=== PATIENT | female | born 1965 | race Caucasian/White ===

== ENCOUNTER 2020-06-29 11:10 | Outpatient (REF) | payer OTHER, SELFPAY ==
--- NOTE | 2020-06-29 11:21 | XR_ITS ---
EXAMINATION: XR HAND, RIGHT CLINICAL INFORMATION: Pain COMPARISON: None TECHNIQUE: PA, lateral, and oblique views of the right hand. FINDINGS: The bones and soft tissues are normal. No fracture. Alignment is anatomic. Joint spaces are maintained. No erosions or soft tissue calcifications. XR/XR hand RT min 3V IMPRESSION: Normal right hand.
== END 2020-06-29 11:11 | disposition home or self-care (01) ==
LOC: HO.HMGCX 11:10
PROVIDERS: PCP Internal Medicine; Visit Provider Hospitalist
DX: M79.644 Pain in right finger(s) (principal)
CPT/HCPCS: 73130

== ENCOUNTER 2020-10-30 11:22 | Outpatient (REF) | payer OTHER, SELFPAY ==
--- NOTE | ~2020-10-30 | XR_ITS ---
EXAMINATION: XR CHEST CLINICAL INFORMATION: Dyspnea COMPARISON: Chest radiographs 09/29/2018 TECHNIQUE: 2 views of the chest were obtained. FINDINGS: The lungs are clear. The vascularity is normal. There is no airspace consolidation, vascular congestion, groundglass opacity, or effusion. The heart is normal in size. The hilar and mediastinal contours and bony structures are unremarkable. XR/XR chest 2V IMPRESSION: Unremarkable examination.
== END 2020-10-30 11:23 | disposition home or self-care (01) ==
LOC: HO.HMGCLDS 11:22
PROVIDERS: PCP Internal Medicine; Visit Provider Physician Assistant
DX: R06.00 Dyspnea, unspecified (principal)
CPT/HCPCS: 71046

== ENCOUNTER → 2020-12-21 13:15 | Outpatient (BNVA) | payer OTHER, SELFPAY | PROVIDERS: PCP Internal Medicine; Visit Provider Physician Assistant Medical | DX: S93.402A Sprain of unspecified ligament of left ankle, initial encounter (principal); S00.83XA Contusion of other part of head, initial encounter; S60.211A Contusion of right wrist, initial encounter; S50.01XA Contusion of right elbow, initial encounter; S80.01XA Contusion of right knee, initial encounter; W01.10XA Fall on same level from slipping, tripping and stumbling with subsequent striking against unspecified object, initial encounter | CPT/HCPCS: 73110; 73130; 73610; 99204 ==

== ENCOUNTER → 2020-12-28 13:17 | Outpatient (BNVA) | payer OTHER, SELFPAY | PROVIDERS: PCP Internal Medicine; Visit Provider Physician Assistant Medical | DX: S93.402A Sprain of unspecified ligament of left ankle, initial encounter (principal); S80.01XA Contusion of right knee, initial encounter; W18.30XA Fall on same level, unspecified, initial encounter | CPT/HCPCS: 73564; 99214 ==

== ENCOUNTER → 2021-01-01 12:40 | Outpatient (BNVA) | payer OTHER, SELFPAY | PROVIDERS: PCP Internal Medicine; Visit Provider Physician Assistant Medical | DX: S80.01XA Contusion of right knee, initial encounter (principal); W18.30XA Fall on same level, unspecified, initial encounter | CPT/HCPCS: 99213 ==

== ENCOUNTER → 2021-01-05 14:54 | Outpatient (BNVA) | payer OTHER, SELFPAY | PROVIDERS: Visit Provider Physician Assistant | DX: M70.51 Other bursitis of knee, right knee (principal); M17.11 Unilateral primary osteoarthritis, right knee; S80.01XA Contusion of right knee, initial encounter | CPT/HCPCS: 99202 ==

== ENCOUNTER → 2021-02-15 12:35 | Outpatient (BNVA) | payer OTHER, SELFPAY | PROVIDERS: Visit Provider Physician Assistant | DX: M17.11 Unilateral primary osteoarthritis, right knee (principal); M70.51 Other bursitis of knee, right knee; S80.01XD Contusion of right knee, subsequent encounter | CPT/HCPCS: 20610; 99212; J1040 ==

== ENCOUNTER 2021-03-03 11:00 | Outpatient (RCR) | payer OTHER, SELFPAY ==
--- NOTE | 2021-02-24 12:53 | MHC.PT.EP ---
[facility] [place] Office [place] Office [place] Office [address] Katie Smy[address] [phone] F: [phone] F: [phone] F: [phone] F: [phone] Physical Therapy Plan of Care Date of Evaluation: Date of Surgery: NA Diagnosis: CONTUSION R KNEE, BURSITIS, OA Assessment: Pt IS 55 YO F REFERRED TO PT FROM ORTHO WITH CONTUSION R KNEE/BURSITIS/OA S/P FALL 12/21/20 WHEN TWISTED HER ANKLE AND FELL ONTO R KNEE. PRESENTS GOOD KNEE ROM AND STRENGTH WITH MMT. Pt REPORTS HX OF MULTIPLE ANKLE INJURIES. HAS EXERCISED REGULARLY UNTIL SHE FELL. NEG LIMP WITH GT, BUT HYPEREXTENSION NOTED WITH SIGNIF CREPITUS WITH SQUAT. Pt REPORTS R LAT THIGH PARESTHESIA (POST COVID). REPORTS LIMITED ABILITY TO KNEEL AND SQUAT. SHOULD BENEFIT FROM PT TO HELP IMPROVE KNEE STABILITY WITH FOCUS ON PATELLA SYMMETRY WITH STRETCHING AND STRENGTHENING NEEDED. OF NOTE, Pt REPORTS A TAPE SENSITIVITY (PAPER TAPE/BANDAIDS..HAS NEVER HAD KT TRIAL..ED TO WEAR KT ONLY SHORT TIME AND BE MINDFUL OF IRRITATION Frequency and Duration: The patient will be seen 2X/WK X 6WKS Short Term Goals: 1. I HEP WITH DC EX PLAN/Pt ABLE TO RETURN TO PREVIOUS EX PROGRAM 2. 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 DECREASED R KNEE PAIN WITH KNEELING AND SQUATTING 2. IMPROVED LEFI Treatment Plan: Modalities to reduce pain, spasms and effusion. Manual therapy to restore motion and function. Therapeutic exercise to improve strength and flexibility. Neuromuscular re-education for posture and balance. Therapeutic activities to return to functional activities of daily living. Electronically signed by: NHUNG BECK PT Please sign and return to therapist. Thank you for your referral.
--- NOTE | 2021-03-03 12:04 | MHC.PT.DC ---
[facility] [place] Office [place] Office [place] Office [address] Manuel Smyth [address] [phone] F: [phone] F: [phone] F: [phone] F: [phone] Physical Therapy Discharge Report Diagnosis: CONTUSION R KNEE, BURSITIS, OA Date of Surgery: NA Date of Evaluation: 02/24/21 Date of Discharge: 03/03/21 Treatments to Date: 3 Cancellations to Date: No Shows to Date: Discharge Status: Patient Elected to Stop Discharge Summary: Pt HAD LEFT VM ON ANSWERING MACHINE AFTER INIT KT TO SAY THAT IT WAS VERY BENEFICIAL. TODAY, Pt TO PT REPORTING SHE IS CANCELLING FURTHER VISITS BECAUSE THE EXS ARE HURTING HER BACK. SHE CAME IN TODAY ONLY TO REVIEW TAPING TECHNIQUE WHICH INITIALLY GAVE HER SIGNIF RELIEF. REPORTS THE LAST TAPING FELT TOO TIGHT (SHOWED SMALL BRUISES AROUND KNEE JT). Pt BROUGHT IN ANKLE SUPPORTS (ED TO USE WHICHEVER GIVES HER THE MOST RELIEF) [ End ]Pt CONTINUES WITH KNEE HYPER EXT. Pt REQUESTS CX FURTHER VISITS (REPORTS EXS INCREASING BACK PAIN...GAVE HER MODIFIED EXS TO TRY). HAS FU WITH ORTHO. ED ON SELF/SPOUSE ASSIST KT, ED RE USING TAPE WHILE STRENGTHENS R LE (PAINFREE) THEN WEAN JACINTA Electronically signed by: NHUNG BECK PT Please sign and return to therapist. Thank you for your referral.
== END 2021-03-03 12:04 | disposition home or self-care (01) ==
LOC: HO.PTWFD 11:00
PROVIDERS: PCP Internal Medicine; Visit Provider Physician Assistant
DX: S80.01XA Contusion of right knee, initial encounter (principal); M17.11 Unilateral primary osteoarthritis, right knee; M70.51 Other bursitis of knee, right knee
CPT/HCPCS: 97110; 97140; 97161

== ENCOUNTER → 2021-03-15 12:44 | Outpatient (BNVA) | payer OTHER, SELFPAY | PROVIDERS: Visit Provider Physician Assistant | DX: M17.11 Unilateral primary osteoarthritis, right knee (principal) | CPT/HCPCS: 99212 ==

== ENCOUNTER 2021-03-24 16:33 | Outpatient (REF) | payer OTHER, SELFPAY ==
--- NOTE | ~2021-03-24 | MR_ITS ---
EXAMINATION: MR KNEE WITHOUT CONTRAST, RIGHT CLINICAL INFORMATION: Primary osteoarthritis. COMPARISON: X-ray of the right knee December 2020. TECHNIQUE: MRI of the knee without contrast was performed using routine sequences on a high-field scanner. FINDINGS: MENISCI: Medial Meniscus: Intact. Lateral Meniscus: Intact. LIGAMENTS: Cruciate: Intact. Collateral: Intact. EXTENSOR MECHANISM: Intact. ARTICULAR CARTILAGE/BONE: Patellofemoral Compartment: There is a focal area of high-grade cartilage loss with associated subchondral cystic change and edema in the distal medial trochlea over an area measuring approximately 6 mm at transverse and craniocaudal. Patella: Non-uniform up high-grade cartilage loss scattered about the medial facet and median ridge of the patella with small subchondral cystic change. Overall, [id number] patellofemoral arthrosis. Medial Compartment: Normal. Lateral Compartment: Normal. JOINT FLUID AND BURSAE: Mild joint effusion and small Smalls's cyst with mild synovitis. Minimal edema in the prepatellar bursal region. MR/MR knee RT wo con IMPRESSION: 1. [id number] patellofemoral arthrosis. 2. Mild joint effusion with small Smalls's cyst.
== END 2021-03-24 16:34 | disposition home or self-care (01) ==
LOC: HO.MRI 16:33
PROVIDERS: PCP Internal Medicine; Visit Provider Physician Assistant
DX: M17.11 Unilateral primary osteoarthritis, right knee (principal); S80.01XA Contusion of right knee, initial encounter
CPT/HCPCS: 73721

== ENCOUNTER → 2021-04-06 13:15 | Outpatient (BNVA) | payer OTHER, SELFPAY | PROVIDERS: PCP Internal Medicine; Visit Provider Physician Assistant ==

== ENCOUNTER 2021-04-14 14:56 | Outpatient (REF) | payer OTHER, SELFPAY ==
--- NOTE | ~2021-04-14 | MR_ITS ---
EXAMINATION: MRI WITHOUT AND WITH CONTRAST FOOT, RIGHT CLINICAL INFORMATION: Foot mass chronic and progressing. COMPARISON: None TECHNIQUE: MRI without and with intravenous administration of 10 mL of Gadavist was performed on the right foot. A skin marker was placed over the area of palpable concern, along the dorsum of the midfoot. FINDINGS: There is severe osteoarthritis at the junction of the navicular and lateral cuneiform and less prominent degenerative changes at the junction with the middle cuneiform, with dorsal osteophytes which likely represent the palpable abnormality. Associated enhancing synovitis and a focally prominent vessel in this location may contribute to the sensation of a palpable lump. There is no enhancing soft tissue mass. The anterior tibialis tendon, extensor hallucis longus and extensor digitorum longus tendons appear intact. No metatarsal stress reaction or fracture. Visualized flexor tendons and plantar fascia appear intact. 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 No enhancing soft tissue mass.
== END 2021-04-14 14:57 | disposition home or self-care (01) ==
LOC: HO.MRI 14:56
PROVIDERS: PCP Internal Medicine; Visit Provider Orthopaedic Surgery
DX: R22.41 Localized swelling, mass and lump, right lower limb (principal)
CPT/HCPCS: 73720; A9585

== ENCOUNTER 2022-07-30 13:23 | Outpatient (REF) | payer OTHER, SELFPAY ==
--- NOTE | ~2022-07-30 | XR_ITS ---
EXAMINATION: XR HAND, LEFT CLINICAL INFORMATION: Contusion of unspecified finger without damage to nail. COMPARISON: None TECHNIQUE: PA, lateral, and oblique views of the left hand. FINDINGS: A 1 mm ossific body is noted along the dorsal aspect of the ulnar portion of the base of the second distal phalanx. No adjacent soft tissue emphysematous changes or definitive soft tissue inflammatory changes. No associated distal interphalangeal joint subluxation. Elsewhere, no arthropathic changes or embedded radiopaque foreign bodies identified. XR/XR hand LT min 3V IMPRESSION: Age-indeterminate, minimally displaced 1 mm avulsion fracture along the dorsal ulnar base of the second distal phalanx.
== END 2022-07-30 13:24 | disposition home or self-care (01) ==
LOC: HO.HMGCX 13:23
PROVIDERS: Visit Provider Internal Medicine
DX: S60.00XD Contusion of unspecified finger without damage to nail, subsequent encounter (principal)
CPT/HCPCS: 73130

== ENCOUNTER 2023-04-29 10:37 | Outpatient (REF) | payer OTHER, SELFPAY ==
[2023-05-02 01:29] LABS: Lyme Abs Screen <0.90 index
== END 2023-04-29 10:38 | disposition home or self-care (01) ==
LOC: HO.HMGCLDS 10:37
PROVIDERS: PCP Internal Medicine; Visit Provider Internal Medicine
DX: T14.8XXA Other injury of unspecified body region, initial encounter (principal); W57.XXXA Bitten or stung by nonvenomous insect and other nonvenomous arthropods, initial encounter; Y93.9 Activity, unspecified; Y92.9 Unspecified place or not applicable; Y99.9 Unspecified external cause status
CPT/HCPCS: 36415; 86617; 86618

== ENCOUNTER 2023-07-05 11:22 | Outpatient (REF) | payer OTHER, SELFPAY ==
--- NOTE | ~2023-07-05 | XR_ITS ---
EXAMINATION: XR CHEST 2 VIEWS CLINICAL INFORMATION: Cough. COMPARISON: Chest radiographs dated 10/30/2020. TECHNIQUE: Frontal and lateral views of the chest were obtained. FINDINGS: The heart, great vessels, pulmonary vasculature and mediastinum are normal. The lungs show no focal infiltrate, effusion or pneumothorax. There is no acute osseous abnormality. XR/XR chest 2V IMPRESSION: No active cardiopulmonary disease.
== END 2023-07-05 11:23 | disposition home or self-care (01) ==
LOC: HO.XRAY 11:22
PROVIDERS: PCP Internal Medicine; Visit Provider Physician Assistant
DX: R05.9 Cough, unspecified (principal)
CPT/HCPCS: 71046

== ENCOUNTER 2024-02-13 13:47 | Outpatient (REF) | payer OTHER, SELFPAY ==
[2024-02-13 17:37] LABS: MANUAL DIFF FLAG NO
[2024-02-13 17:45] LABS: Basophils Percent Auto 0.7 % (0-2); Eosinophils Absolute Auto 0.1 X10*3/uL (0.0-0.4); Eosinophils Percent Auto 2.9 % (0-4); Hematocrit 41.7 % (37.0-47.0); Hemoglobin 13.8 g/dl (12.0-16.0); Imm Gran Abs Auto 0.01 X10*3/uL (0.00-0.03); Imm Gran Pct Auto 0.2 % (0.0-0.4); Lymphocytes Absolute Auto 1.4 X10*3/uL (1.2-4.9); Mean Corpuscular HGB Conc 33.1 g/dl (31.0-35.0); Mean Corpuscular Hemoglobin 30.6 pg (27.0-33.0); Mean Corpuscular Volume 92.5 fL (80.0-98.0); Mean Platelet Volume 10.7 fL (9.4-12.3); Monocytes Absolute Auto 0.3 X10*3/uL (0.1-1.2); Monocytes Percent Auto 7.2 % (2-11); Neutrophils Absolute Auto 2.3 x10*3/uL (2.0-8.3); Platelet Count 352 X10*3/uL (160-400); Red Blood Count 4.51 X10*6/uL (4.20-5.50); Red Cell Distribution Width 12.4 % (11.0-16.0); White Blood Count 4.2 X10*3/uL (4.8-10.8)
[2024-02-13 17:54] LABS: Estimated Average Glucose 111 mg/dL; Hemoglobin A1c % 5.5 % (<6.0)
[2024-02-13 18:07] LABS: Alanine Aminotransferase 23 U/L (0-31); Albumin Level 4.4 g/dL (3.5-5.0); Alkaline Phosphatase 88 U/L (39-117); Anion Gap 13 (12-20); Aspartate Amino Transferase 26 U/L (5-31); Bilirubin Total 0.5 mg/dL (0.0-1.0); Blood Urea Nitrogen 11 mg/dL (9-16); Calcium 9.5 mg/dL (8.4-10.2); Carbon Dioxide 27 mmol/L (22-29); Chloride 106 mmol/L (96-108); Cholesterol 177 mg/dL (<200); Estimated Glomerular Filt Rate > 60; Glucose Random 87 mg/dL (60-115); HDL Cholesterol 68 mg/dL (>40); Iron 132 mcg/dL (30-160); LDL Cholesterol Calculated 98 mg/dL (<100); Magnesium 2.1 mg/dL (1.6-2.6); Percent Iron Saturation 41 % (15-50); Potassium 3.9 mmol/L (3.3-5.1); Sodium 142 mmol/L (135-145); Total Iron Binding Capacity 321 mcg/dL (228-428); Total Protein 7.8 g/dL (6.5-8.0); Triglycerides 56 mg/dL (<150); Unsaturated Iron Binding 189 ug/dL
[2024-02-13 18:24] LABS: Ferritin 118 ng/mL (10-250); TSH reflex Free T4 0.95 uIU/mL (0.32-4.0)
[2024-02-13 18:29] LABS: Folate 7.7 ng/mL (> or = 4.0); Vitamin B12 905 pg/mL (200-900)
== END 2024-02-13 13:48 | disposition home or self-care (01) ==
LOC: HO.WFDLDS 13:47
PROVIDERS: Visit Provider Physician Assistant
DX: D51.3 Other dietary vitamin B12 deficiency anemia (principal); Z13.1 Encounter for screening for diabetes mellitus
CPT/HCPCS: 36415; 80053; 80061; 82607; 82728; 82746; 83036; 83540; 83735; 84443; 85025

== ENCOUNTER 2024-02-13 14:27 | Outpatient (REF) | payer OTHER, SELFPAY ==
[2024-02-15 12:58] LABS: Zinc 63 mcg/dL (60-130)
== END 2024-02-13 14:28 | disposition home or self-care (01) ==
LOC: HO.LAB 14:27
PROVIDERS: Visit Provider Physician Assistant
DX: D51.3 Other dietary vitamin B12 deficiency anemia (principal)
CPT/HCPCS: 36415; 84630

== ENCOUNTER 2024-07-02 09:52 | Outpatient (AMB) | payer OTHER, SELFPAY ==
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
[2024-07-02 10:27] VITALS: BP 124/86; PULSE 98; O2SAT 99
== END 2024-07-02 12:37 | disposition home or self-care (01) ==
PROVIDERS: PCP Internal Medicine; Visit Provider Physician Assistant
DX: S63.91XA Sprain of unspecified part of right wrist and hand, initial encounter (principal)

== ENCOUNTER → 2024-07-02 09:52 | Outpatient (BNVA) | payer OTHER, SELFPAY | PROVIDERS: PCP Internal Medicine; Visit Provider Physician Assistant ==

== ENCOUNTER 2024-08-05 10:07 | Outpatient (REF) | payer OTHER, SELFPAY ==
--- NOTE | ~2024-08-05 | XR_ITS ---
EXAMINATION: XR HAND, RIGHT CLINICAL INFORMATION: PAIN IN RIGHT HAND COMPARISON: None available. TECHNIQUE: PA, lateral, and oblique views of the right hand. FINDINGS: The bones and soft tissues are normal. No fracture. Alignment is anatomic. Joint spaces are maintained. No erosions or soft tissue calcifications. XR/XR hand RT min 3V IMPRESSION: Normal right hand. Electronically signed by: Kenton Way MD 08/05/2024 10:41 AM JEFRY
== END 2024-08-05 10:08 | disposition home or self-care (01) ==
LOC: HO.XRAY 10:07
PROVIDERS: PCP Internal Medicine; Visit Provider Physician Assistant
DX: M79.641 Pain in right hand (principal)
CPT/HCPCS: 73130

== ENCOUNTER → 2024-08-05 10:13 | Outpatient (BNV) | payer OTHER, SELFPAY | PROVIDERS: PCP Internal Medicine; Visit Provider Radiology Diagnostic Radiology | DX: M79.641 Pain in right hand (principal) | CPT/HCPCS: 73130 ==

== ENCOUNTER 2024-09-11 11:38 | Outpatient (AMB) | payer OTHER, SELFPAY ==
--- NOTE | 2024-09-11 11:46 | MHC.OFFWIV ---
Intake Vital Signs 09/11/24 11:47 Height 5 ft 6 in BMI Reason not done Patient refused/unable BP 138/80 Blood Pressure Location Rt brachial Position Sitting Pulse 87 Pulse Source Pulse Oximeter Temp 97.9 F Temp Source Oral Pulse Oximetry (%) 97 Oxygen Delivery Method Room Air Intake Visit Reasons: EP-lt wrist pain from a fall, no wc Intake Note: pt is here for left wrist pain due to fall Patient Tobacco Use Status: Never used Tobacco Allergies morphine [MORPHINE] Allergy (Unknown, Verified 09/11/24 11:48) VOMITING Codeine Phosphate Allergy (Unknown, Uncoded 07/02/24 10:25) Unknown Do you need a note to return to daycare/school/sports/work: Yes HPI HPI Comments History of Present Illness Details Pt presents with L wrist pain 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 She 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 and broke railing and landed hard on L wrist R hand dominant No HT or LOC No medicine for discomfort Pain level high, did not give pain level She denies numbness or tingling PFSH Social History (System 06/08/23 @ 13:42 by Mayela Garrison) Alcohol intake: never Patient Tobacco Use Status: Never used Tobacco Current occupational status: employed 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 Review of Systems Const Denies chills, Denies fever(s) and Denies headache(s) Eyes Denies change in vision ENT Denies dizziness and Denies headache(s) Musc Reports arthralgias (Lt wrist ), Reports radiating pain into limb and Reports tingling Skin/Breast Denies rash and Reports other (blood blister L palm near thumb) Neuro Denies dizziness, Denies headache(s) and Reports tingling Physical Exam Vital Signs: Last Vital Signs Temp 97.9 F 09/11/24 11:47 Pulse 87 09/11/24 11:47 BP 138/80 09/11/24 11:47 Pulse Ox 97 09/11/24 11:47 Oxygen Delivery Method Room Air 09/11/24 11:47 General: Non-toxic, NAD. Speaking full sentences. Skin: Warm dry throughout. L palm has verticle approx 1.5cm blood blister to L thenar eminance. No open abrasions or wounds Eye: EOMI Respiratory: No respiratory distress noted Cardiac: Radial pulse intact LUE MSK: + full ROM digits L hand, L wrist and L elbow. No bony ttp L elbow or digits L hand. No L scaphoid ttp. + diffuse tenderness to palpation radial aspect wrist and ulnar carpal bones and 3/4th metacarpal bones L hand. Neurology: Alert. No aphasia or facial droop. Gait without abnormality Psych: Good mood and affect Office Procedures Wrist Fracture Wrist Fracture: [id number] Fracture w/o manipulation Assessment & Plan Assessment & Plan (1) Wrist pain, left: Code(s): M25.532 - Pain in left wrist Plan: Xray Lt wrist with scaphoid: + scaphoid fracture noted Placed in Thumb spica splint; verbal consent obtained. Pt neurovascular intact pre and post procedure. 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; she is aware of medical advice All questions answered at time of discharge (2) Scaphoid fracture: Code(s): S62.009A - Unspecified fracture of navicular [scaphoid] bone of unspecified wrist, initial encounter for closed fracture Qualifiers: Encounter type: initial encounter Scaphoid bone location: unspecified portion of scaphoid Fracture type: closed Fracture alignment: nondisplaced Laterality: left Qualified Code(s): S62.002A - Unspecified fracture of navicular [scaphoid] bone of left wrist, initial encounter for closed fracture Plan: see above Orders: Orders XR wrist LT w scaphoid Today M25.532 - Pain in left wrist Referrals Orthopedics Referral S62.009A - Unspecified fracture of navicular [scaphoid] bone of unspecified wrist, initial encounter for closed fracture Coding Level of Care Code Est Pt Level 4 (03799) Diagnoses Wrist pain, left M25.532 Closed nondisplaced fracture of scaphoid of left wrist, unspecified portion of scaphoid, initial encounter S62.002A Encounter type: initial encounter Scaphoid bone location: unspecified portion of scaphoid Fracture type: closed Fracture alignment: nondisplaced Laterality: left CPT Codes Details - Wrist Fracture: [id number] Fracture w/o manipulation ([id number])
[2024-09-11 11:47] VITALS: BP 138/80; PULSE 87; TEMP 36.6; O2SAT 97
--- OUTSIDE RECORDS SUMMARY | 2024-09-11 13:28 | XMS_ITS | Data Portability ---
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 MUST MEET 2 OUT OF 3 ELEMENTS: PROBLEMS, DATA OR RISK ELEMENT 1: PROBLEMS ADDRESSED OR OR 1 UNDIAGNOSED NEW PROBLEM OR 1 ACUTE ILLNESS W/SYMPTOMS OR ELEMENT 2: DATA MUST MEET 1 OF 3 CATEGORIES CATEGORY 1: REVIEW OF PRIOR EXTERNAL NOTES, REVIEW OF RESULTS, ORDERING OF EACH TEST, ASSESSMENT REQUIRING INDEPENDENT HISTORIAN OR CATEGORY 2: OR CATEGORY 3: ELEMENT 3: RISK RISK OF COMPLICATIONS AND/OR MORBIDITY OR MORTALITY OF PATIENT MANAGEMENT PROVIDER MUST THOROUGHLY DOCUMENT EACH ELEMENT THAT IS COVERED [email or web address] Not available 10/30/2020 13:51:31 Plan of Treatment Reminders Order Date Submit Date Provider Last Modified By Organization Details Last Modified Time Details Appointments ANNUAL EXAM 2025 09:00A M RAFAEL YANCEY Not available Not available Not available Lab SARS CoV 2 RNA (COVID-19 ), QL, supervisor lathing-PCR, 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 Procedures None recorded. Surgeries None recorded. Imaging XR, chest, 2 view 2020 021 [facility] (Imaging), [address] [place] [address], [address], 10/30/2020 12:17:21 XR, hand, 3 or more view 122023 [facility] Central Scheduling, [address] [place], [address], 08/05/2024 10:45:13 Medication Orders prednison e 10 mg tablet [address] [facility]06642, [address] [place], [place], [id number], 07/11/2023 08:42:41 Hibiclens 4 % topical liquid [address] [facility] #18849, [address] [place], [place], [id number], 11/22/2023 11:49:38 terbinafi ne HCl 250 mg tablet 2022 023 [facility] #70641, [address] [place], [place], [id number], 05/23/2023 10:21:22 Medrol (Efrain) 4 mg tablets in a dose pack [address] [facility] #21299, [address], [place], [id number], 07/11/2023 08:42:37 Zithromax Z-Efrain 250 mg tablet 2022 023 [facility] #34028, [address] [place], [place], [id number], 07/11/2023 08:42:56 terbinafi ne HCl 250 mg tablet 2023 024 [facility] #39966, [address] [place] [address], [id number], 08/05/2024 09:20:49 betametha sone dipropion ate 0.05 % lotion 2023 024 [facility] #20031, [address], [place], [id number], 08/05/2024 09:34:47 Patient TargetsNo targets recorded. Patient InstructionsNo instructions recorded. Reason for Referral None Reported. Results Created Date Observation Date Name Description Value Unit Range Abnormal Flag Note LastModifiedBy Organization Detail LastModifiedTime 10/31/19 21 10/30/2020 XR, chest , 2 view No observ ation record ed. [email or web address] [facility] (Medical Records) [address] [place], [address], 10/30/2020 13:25:20 07/10/20 23 07/05/2023 XR, chest , 2 view No observ ation record ed. [facility] (Medical Records) [address] [place], [address], 07/11/2023 10:39:02 08/05/20 24 08/05/2024 XR, hand, 3 or more view No observ ation record ed. [facility] (Medical Records) [address] [place], [address], 08/09/2024 13:16:52 08/15/19 25 08/15/2024 CT, hand, w/o contr ast No observ ation record ed. [email or web address] [facility] [place] [address] [address], [place], [address], 08/16/2024 11:11:06 09/11/19 25 09/11/2024 imagi ng/di agnos tic resul t No observ ation record ed. [place] [id number] [facility] [place], [address], 09/11/2024 13:04:28 Result Notes None recorded. 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 Not Available [facility] 4 09:44:14 Migraine 92852772 Active 2018 Not Available [facility] 4 09:44:14 Psoriasis 9311961 Active 2018 Not Available [facility] 4 09:44:14 COVID-19 837981694 Active 2020 1 Not Available [facility] 4 09:44:14 Wheezing 40228611 Active 2022 Not Available [facility] 4 09:44:14 Tinea corporis 63208425 Active 2022 Not Available [facility] 4 09:44:14 Asthma 871663452 Active 2022 Not Available [facility] 4 09:44:14 Acute exacerbat ion of chronic obstructi ve pulmonary disease 412740160 Active 2022 Not Available [facility] 4 09:44:14 Chronic bronchiti s 63577741 Active 2022 Not Available [facility] 4 09:44:14 Cough 62198866 Active 2022 Not Available [facility] 4 09:44:14 Chronic obstructi ve pulmonary disease 22914424 Active 2022 Not Available [facility] 4 09:44:14 Onychomyc osis due to dermatoph yte 918921367 Active 2023 Not Available [facility] 4 09:44:14 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 Please review these documents and add these problems to the patient's chart manually as needed. Problem Notes None recorded. Procedures Surgical History None recorded. Imaging Results Imaging Date Name Status LastModified by Organiz ation Details LastModified Time 10/30/2020 XR, chest, 2 view completed [email or web address] [facility] (Medical Records) [address] [place] [address], [address], 10/30/2020 13:25:20 07/05/2023 XR, chest, 2 view completed [facility] (Medical Records) [address] [place] [address], [address], 07/11/2023 10:39:02 08/05/2024 XR, hand, 3 or more view completed [facility] (Medical Records) [address] [place] [address], [address], 08/09/2024 13:16:52 08/15/2024 CT, hand, w/o contrast completed [email or web address] [facility] [place] [facility] [address] [address], [place], [address], 08/16/2024 11:11:06 09/11/2024 imaging/diagn ostic result active [facility] [address] [place] [address] [place], [address], 09/11/2024 13:04:28 Procedure Notes None recorded. Medical Equipment None Reported. Allergies Allergen ID Allergen Name Allergen Category Reaction Reaction Severity Criticality Documentation Date Start Date Code Code System Note Provider Name and Address Organization Details Recorded Time 2785 codeine medicatio n Not available Not available Not available 09/11/2018 2670 RxNorm Laura ferrer [facility] 9 15:18:20 2831 morphine medicatio n Not available Not available Not available 09/26/2018 7052 RxNorm Kiah ferrer [facility] 9 08:36:34 Medications Name Sig Start Date Stop Date Status Note LastModified by Organization Details LastModified Time prednisone 10 mg tablet 50 mg x 2 days 40 mg x 2 days30 mg x 2 days20 mg x 2 days10 mg x 2 days 07/11 completed Not Available Not Available Not Available triamcinolo ne acetonide 0.5 % topical cream APPLY THIN LAYER EXTERNALL Y TO THE AFFECTED AREA TWICE DAILY Needs appointme nt 10/30 completed Not Available Not Available Not Available ketoconazol e 200 mg tablet TAKE 1 TABLET BY MOUTH EVERY DAY FOR 15 DAYS 11/21 completed Not Available Not Available Not Available ofloxacin 0.3 % eye drops 11/21 completed Not Available Not Available Not Available meloxicam 15 mg tablet TAKE 1 TABLET BY MOUTH EVERY DAY 05/16 completed Not Available Not Available Not Available prednisone 20 mg tablet TAKE 1 TABLET BY MOUTH EVERY DAY FOR 14 DAYS 07/11 completed Not Available Not Available Not Available Zithromax Z-Efrain 250 mg tablet TAKE 2 TABLETS (500 MG) BY ORAL ROUTE ONCE DAILY FOR 1 DAY THEN 1 TABLET (250 MG) BY ORAL ROUTE ONCE DAILY FOR 4 DAYS 07/11 completed Not Available Not Available Not Available terbinafine HCl 250 mg tablet Take 1 tablet every day by oral route for 30 days. 2023 active Not Available Not Available Not Avai lable sulfacetami de sodium 10 % eye drops INSTILL 1 DROP INTO AFFECTED EYE(S) BY OPHTHALMI C ROUTE EVERY 2-3 HOURS DURING THE DAY AND LESS FREQUENTL Y AT NIGHT 09/28 completed Not Available Not Available Not Available erythromyci n 5 mg/gram (0.5 %) eye ointment 10/30 completed Not Available Not Available Not Available clotrimazol e-betametha sone 1 %-0.05 % topical cream APPLY TOPICALLY TO THE AFFECTED AND SURROUNDI NG AREAS OF SKIN TWICE DAILY IN THE MORNING AND IN THE EVENING FOR 2 WEEKS 11/21 completed Not Available Not Available Not Available betamethaso ne dipropionat e 0.05 % topical cream APPLY THIN LAYER TOPICALLY TO THE AFFECTED AREA EVERY DAY 11/21 completed Not Available Not Available Not Available mupirocin 2 % topical ointment active Not Available Not Available Not Available diazepam 10 mg tablet 09/28 completed Not Available Not Available Not Available Cheratussin AC 10 mg-100 mg/5 mL oral liquid Take 10 mL every 4 hours by oral route. 10/01 completed Not Available Not Available Not Available methylpredn isolone 4 mg tablets in a dose pack FOLLOW PACKAGE DIRECTION S 07/11 completed Not Available Not Available Not Available albuterol sulfate HFA 90 mcg/actuati on aerosol inhaler INHALE 2 PUFFS BY MOUTH EVERY 4 HOURS 2024 active Not Available Not Available Not Avai lable betamethaso ne dipropionat e 0.05 % lotion APPLY A FEW DROPS TO THE AFFECTED AREA(S) BY TOPICAL ROUTE 2 TIMES PER DAY IN THE MORNING AND AT BEDTIME ; RUB IN GENTLY AND COMPLETEL Y 2023 active Not Available Not Available Not Avai lable Hibiclens 4 % topical liquid APPLY TOPICALLY TO THE AFFECTED AREA EVERY DAY FOR 14 DAYS 11/21 completed Not Available Not Available Not Available neomycin 3.5 mg/g-polymy catie B 10,000 unit/g-dexa meth 0.1 % eye oint 11/21 completed Not Available Not Available Not Available Co Q-10 active Not Available Not Avail able Not Available garlic active Not Available Not Availa ble Not Available mitzy extract 500 mg capsule Take by oral route. active Not Available Not Available No t Available Probiotic active Not Available Not Radha ilable Not Available Women's 50 Plus Daily Formula active Not Available Not Available Not Available Trelegy Ellipta 100 mcg-62.5 mcg-25 mcg powder for inhalation INHALE 1 PUFF BY MOUTH EVERY DAY active Not Available Not Available No t Available Vitals Date Recorded Body height Provider Name an d Address Organization Details Last Updated DateTime 12/24/2019 167.64 cm Laura Vaca [facility] 12/24/2019 10:58:38 Date Recorded Body height Body mass index (BMI) Body weight Heart rate Oxygen saturation Oxygen saturation in Arterial blood by Pulse oximetry Systolic blood pressure Diastolic blood pressure Provider Name and Address Organization Details Last Updated DateTime 1 167.64 cm 35.5 kg/m2 71063.3 2 g 82 /min 98 % 98 % 126 mm[Hg] 70 mm[Hg] Aliyah [facility] 1 09:21:56 Date Recorded Body height Body mass index (BMI) Body weight Heart rate Oxygen saturation Oxygen saturation in Arterial blood by Pulse oximetry Systolic blood pressure Diastolic blood pressure Provider Name and Address Organization Details Last Updated DateTime 3 167.64 cm 37.9 kg/m2 875709. 21 g 87 /min 97 % 97 % 134 mm[Hg] 76 mm[Hg] Ayesha Cameronult [facility] Internal [facility] 3 14:37:09 Date Recorded Body height Body mass index (BMI) Body weight Heart rate Oxygen saturation Oxygen saturation in Arterial blood by Pulse oximetry Systolic blood pressure Diastolic blood pressure Provider Name and Address Organization Details Last Updated DateTime 4 167.64 cm 37.9 kg/m2 444423. 21 g 86 /min 97 % 97 % 140 mm[Hg] 78 mm[Hg] Patricia Johnston [facility] 4 09:00:59 Date Recorded Body height Body mass index (BMI) Body weight Heart rate Oxygen saturation Oxygen saturation in Arterial blood by Pulse oximetry Systolic blood pressure Diastolic blood pressure Provider Name and Address Organization Details Last Updated DateTime 9 167.64 cm 33.6 kg/m2 29373.2 1 g 84 /min 99 % 99 % 130 mm[Hg] 80 mm[Hg] Jayne Rasheed [facility] 9 14:57:52 Social History Question Answer Notes LastModified by Organizat ion Details LastModified Time Tobacco Smoking Status Former Smoker Jayne Iqbal [facility] 09/28/2018 14:55:05 What Was The Date Of Your Most Recent Tobacco Screening? 08/05/2024 [email or web address] Information not available 08/05/2024 Sex: Unknown Functional Status None recorded. Mental Status None recorded. Family History Nothing Reported. Medical History No medical history recorded. Gynecological HistoryNo gynecological history recorded. Obstetrics History GPAL:G 0 P 0 0 0 0 Past Encounters Encounter ID Performer Location Encounter Start Date Encounter Closed Date Diagnosis/Indication Diagnosis SNOMED-CT Code Diagnosis ICD10 Code Diagnosis Note [id number] Miladys Nichols NP, S [facility] [address] [facility],[place] [address] 09/11/2018 15:11:20 09/11/2018 15:51:48 Acute conjunctivitis 43399133 H10.31 [id number] Miladys Nichols NP, S [facility] [address] [place] [address], [place] [address] 09/28/2018 14:46:48 10/01/2018 08:23:34 Cough 70701801 R05 Psoriasis 6846744 L40.9 Migraine 19532879 G43.90 9 stopped w/menopaus e Screening procedure 2012 5006 Z13.9 Weight gain 6149098 R63. 5 working on weight loss, continue healthy exercise [id number] Justin Nelson, [facility] [address] [place] [address], [place] [address] 05/03/2019 14:52:15 05/03/2019 15:21:14 Pre-surgery evaluation 661291638 Z01.818 pt is currently cleared for the proposed scleral surgery of her left eye as well as the follow up visit on 06-05-2019 for any further procedures required. [id number] [facility] [address] [place] [address], [place] [address] 12/24/2019 10:43:23 12/24/2019 12:12:57 Headache 46913882 R51 possibly COVID-like symptoms will get her tested tomorrow and f/u with results from testing told to stay hydrated and management symptoms pt advised to self-quara ntine for length of her symptoms until she is 72 hours symptom free pt understand s this Diarrhea 11471339 R19.7 as above Fatigue 29890877 R53.83 as above [id number] [facility] [address] [place] [address], [place] [address] 10/30/2020 09:03:03 10/30/2020 12:17:21 Pruritic rash 80480956 L28.2 will trial script of pred and see if the rash is reduced Dyspnea 278167271 R06.00 will fu with XR to determine the integrity of her lungs [id number] [facility] [address] [place] [address], [place] [facility] [place] [address] 05/16/2023 14:18:58 05/16/2023 16:26:41 Wheezing 70953256 R06.2 will start on medrol and z-efrain Tinea corporis 89695724 B35.4 start on hibiclens and terbinafin e [id number] RAFAEL YANCEY [facility] [address] [facility] [address],[place] [address] 08/05/2024 08:52:01 08/05/2024 09:37:50 Pain in right hand 9379853199 89531 M79.641 agreed to XR Adult heal th examination 925516214 Z00.00 BP is usually finewhite coat Asthma 219068444 J45.20 stable Onychomyco sis due to dermatophyte 642176271 B35.1 will set up with terbinafin e Psoriasis 0413227 L40.9 will set up with topical refill Health Concerns Section Related Observation LastModified by Organization He michelle LastModified Time None Recorded Concern Status LastModified by Organization Details LastModified Time None Recorded Advance Directives Directive None Recorded Payers Encounter Date Sequence Insurance Name Policy Number Policy Gold Covered Member ID Gold Member ID Guarantor Name 05/03/2019 1 [facility] [id number] Brandie Tera [id number] Brandie Tera 12/24/2019 1 [facility] [id number] Brandie Tera [id number] Brandie Tera 10/30/[address] [place] [address] [id number] Brandie Tera [id number] Brandie Tera 05/16/2023 1 [facility] [id number] Brandie Tera [id number] Brandie Tera 08/05/[address] [place] [address] [id number] Brandie Tera [id number] Brandie Haley Notes Date Note Type Note Provider Name a nd Address Organization Details Recorded Time 9 text/html Pre-OpReported bypatient.Risk Factorsno cognitive impairment; no functional impairment; no malnutrition; no frailty; able to climb a flight of stairs (exercise capacity>4 METS); no obstructive sleep apnea; non-smoker; no alcohol misuse; no illicit drug use; no chronic cardiopulmonary condition; not obese Anesthesia hx:no hx of anesthesia complications; no allergy to anesthetic agents; no family history of anesthesia complications Functional Ability:able to walk up stairs; able to perform heavy work around the house; no difficulty walking up hills; able to walk 4 mphNotes: Justin Nelson DO [address] [place], [address], [facility] 06/03/2019 13:57:48 0 text/html TELEMED PHONE CALL: 17 minutes patient consented c/o fatigue, vomiting, loose stool, dizziness, lethargic, headache started two weeks ago started with a headache > gets it at the top of her head > intermittent (dull, throbbing ache) then progressed to stomach pain and fatigue and diarrhea 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 with 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 people who ride her 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 that DO NOT wear masks vomiting, one episode yesterday, constant nausea, is still eating three episodes of diarrhea a day since this started, no blood drinking a lot of fluids and teas keeping herself hydrated and eating only coughs and has sob when she sprays lisol spray > probably related to an allergic/asthmatic reaction to the spray some chest tightness, but states she it is only related to the anxiety no fever, did have the chills on Monday RAFAEL YANCEY [address] [place], [address], [facility] 12/24/2019 11:43:47 1 text/html c/o rash the patient had COVID in mid-aug, the patient reports she developed the rash about a week or so after the infection the patient reports that she started with an itch on the back of her right leg the patient reports that she has been using oil of oregano to no affect has also tried topical steriod with no effect the patient reports ongoing sob and chest tightness post-COVID as well the patient states that she has been scatching the skin so hard it bleeds the location of the rash is contained to the posterior LE of the left side RAFAEL YANCEY [address] [place], [address], [facility] 10/30/2020 13:52:05 3 text/html lab work f/u wheezing/bronchitis: continue with the albuterol inhalerwill set up with medrol and z-efrain as well for the patient negative COVID-19 patient has ringwormtopicals not perfectly effectivewill start on oral medicine and hibiclens will fu with patient after she completes course RAFAEL YANCEY [address] [place], [address], [facility] 05/16/2023 14:59:25 4 text/html Annual WellnessReported bypatient.Diet and Nutrition:healthy diet; discussed vitamin and supplement use; discussed portion control; discussed maintaining calcium balance; discussed diet improvement Fracture Risk:no history of fractures; no recent explained fracture; no sudden unexplained fractures; no previous musculoskeletal injuries Physical Activity:exercises on a regular basis; recent increase in physical activity; good physical condition Additional Lifestyle Factors:no tobacco use; drinks alcohol (mild-moderate) Depression Risk:never feels sad, empty, or tearful; no loss of interest in activities; no significant changes in weight; no sleep disturbances or insomnia; no agitation; no loss of energy; no feelings of worthlessness or guilt; no thoughts of suicide; no history of depression; no history of mood disorders Hearing:no loss of hearing Vision:no vision problems right hand pain, after pulling a drawer open with her ring and middle fingerwas seen by UC, negative examthe patient wore a wrist brace for 2 weeks with improvementhas a f/u with a hand surgeon in Sep no imaging takenR hand dominant 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
== END 2024-09-11 12:53 | disposition home or self-care (01) ==
PROVIDERS: PCP Internal Medicine; Visit Provider Physician Assistant
DX: S62.002A Unspecified fracture of navicular [scaphoid] bone of left wrist, initial encounter for closed fracture (principal); Z04.2 Encounter for examination and observation following work accident; W19.XXXA Unspecified fall, initial encounter

== ENCOUNTER 2024-09-11 11:38 | Outpatient (REF) | payer OTHER, SELFPAY ==
--- NOTE | ~2024-09-11 | XR_ITS ---
EXAMINATION: XR WRIST, LEFT CLINICAL INFORMATION: M25.532 - Pain in left wrist COMPARISON: Left hand x-ray dated July 30, 2022. TECHNIQUE: PA, lateral, and oblique views of the left wrist. Scaphoid projection FINDINGS: The carpal bones are intact. The alignment is normal. The metacarpal bones are intact. The distal radius and ulna are intact. No lytic or blastic lesions. XR/XR wrist LT w scaphoid IMPRESSION: No acute fracture or dislocation. Electronically signed by: Heber Ulloa MD 09/11/2024 01:01 PM JEFRY ANDRES
== END 2024-09-11 11:39 | disposition home or self-care (01) ==
LOC: HO.HMGCX 11:38
PROVIDERS: PCP Internal Medicine; Visit Provider Physician Assistant
DX: S62.002A Unspecified fracture of navicular [scaphoid] bone of left wrist, initial encounter for closed fracture (principal); W01.0XXA Fall on same level from slipping, tripping and stumbling without subsequent striking against object, initial encounter; Y93.01 Activity, walking, marching and hiking; Y92.9 Unspecified place or not applicable; Y99.9 Unspecified external cause status
CPT/HCPCS: 73110

== ENCOUNTER → 2024-09-11 12:10 | Outpatient (BNV) | payer OTHER, SELFPAY | PROVIDERS: PCP Internal Medicine; Visit Provider Radiology Diagnostic Radiology | DX: M25.532 Pain in left wrist (principal) | CPT/HCPCS: 73110 ==

== ENCOUNTER 2024-09-17 08:28 | Outpatient (REF) | payer OTHER, SELFPAY | END 2024-09-17 08:29 | disposition home or self-care (01) | LOC: HO.XRAY 08:28 | PROVIDERS: PCP Internal Medicine; Visit Provider Orthopaedic Surgery | DX: M25.532 Pain in left wrist (principal) | CPT/HCPCS: 73110 ==

== ENCOUNTER → 2024-09-17 08:33 | Outpatient (BNV) | payer OTHER, SELFPAY | PROVIDERS: PCP Internal Medicine; Visit Provider Radiology Diagnostic Radiology | DX: M25.532 Pain in left wrist (principal) | CPT/HCPCS: 73110 ==

== ENCOUNTER 2024-09-17 08:53 | Outpatient (AMB) | payer OTHER, SELFPAY ==
--- NOTE | 2024-09-17 09:06 | A.OFFVIS_ITS ---
Vital Signs 09/17/24 09:06 Height 5 ft 6 in Intake Visit Reasons: FC- Left wrist scaphoid fx DOI 09/11/24 Intake Note: Brandie 58 yr old right hand dominant male presents today for a new problem/ fracture care visit for her left wrist pain. States on 09/11/24 she fell while at home and injured her left wrist. Seen at urgent care same where xrays were taken and a fracture was confirmed. States she was placed in a splint. Currently states she has pain when moving her thumb. Denies numbness or tingling. No past injury or surgery to left hand. Allergies morphine [MORPHINE] Allergy (Unknown, Verified 09/17/24 09:12) VOMITING Codeine Phosphate Allergy (Unknown, Uncoded 09/17/24 09:12) Unknown HPI HPI FC- Left wrist scaphoid fx DOI 09/11/24: Details: Brandie is a 58 year old right hand dominant woman who presents for a left wrist fracture, S/P fall, DOI: 09/11/24. She was seen at a walk-in clinic and placed in a thumb spica splint. She complains of pain in her wrist, primarily with motion of her thumb. 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 She denies any numbness or tingling. She denies smoking or vaping of any kind. 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 Review of Systems Const All systems reviewed & are unremarkable except as noted in HPI and below Physical Exam Const General: cooperative, healthy appearing and no acute distress Orientation/consciousness: patient oriented x3 HEENT Head: Yes normocephalic and Yes atraumatic Eyes EOM: EOMs intact bilaterally Resp Effort & Inspection: normal respiratory effort and able to speak in complete sentences Cardio Jugular venous distension: no JVD Skin General skin exam: turgor normal Rashes: no rashes Neuro General: patient oriented x3 Extrem Other: Evaluation of Left Upper Extremity: The patient is alert, oriented, and in no acute distress Neuro: Median, Ulnar, Radial nerves motor and sensory intact and sensation is normal to the tips of all digits Vascular: Cap refill brisk ROM: She can make a fist and extend all her digits Skin: No lacerations, abrasions, or evidence of open fracture General: Tender over snuffbox Tender over the dorsal aspect of the scaphoid No scaphoid tubercle tenderness Radiographs: 3 views of the left wrist, plus a scaphoid view, were taken and viewed by me today in clinic. They appear to show a nondisplaced scaphoid waist fracture. However please note the the radiographs were obscured by the fiberglass splint. Psych Appearance: grossly normal Affect: normal affect Attitude: cooperative Office Procedures AMB Fracture Care Details: Fracture care scaphoid fracture 52670 Fracture Billing Code: Fracture Billing Code Assessment & Plan Assessment & Plan (1) Fracture of scaphoid of left wrist: Code(s): S62.002A - Unspecified fracture of navicular [scaphoid] bone of left wrist, initial encounter for closed fracture Category: Medical Plan Assessment & Plan: 1. Left scaphoid waist fracture, nondisplaced DOI: 09/11/24 status post fall I educated her about this condition I discussed operative and non-operative treatment options We will manage this conservatively, and she is in agreement. 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 She was given a note for work to return on light duty, with a 2lb weight limit with her LUE. She is able to drive as tolerated She will follow up in 4 weeks, with X-rays, 3 V L wrist+scaphoid, OOP Scribed for Radha Caballero MD by Morales Mota, medical records director, on 09/17/24 at 9:20 AM, EST. Orders: Orders XR wrist LT w scaphoid Today M25.532 - Pain in left wrist Coding Level of Care Code New Pt Level 4 (48829) Diagnoses Fracture of scaphoid of left wrist S62.002A CPT Codes Fracture Care - Fracture Billing Code: Fracture Billing Code ([id number])
== END 2024-09-17 09:51 | disposition home or self-care (01) ==
PROVIDERS: PCP Internal Medicine; Visit Provider Orthopaedic Surgery
DX: S62.002A Unspecified fracture of navicular [scaphoid] bone of left wrist, initial encounter for closed fracture (principal)
CPT/HCPCS: 25622; 99204

== ENCOUNTER 2024-09-26 10:51 | Outpatient (AMB) | payer OTHER, SELFPAY ==
--- NOTE | 2024-09-26 10:54 | MHC.OFFVIS ---
Vital Signs 09/26/24 10:54 Height 5 ft 6 in Intake Visit Reasons: O/V LTwrist scaphoid fx DOI 09/11/24 cast change Intake Note: Brandie 58 yr old female presents today for a cast change due to loose cast and decrease in swelling for her Fracture of scaphoid of left wrist 09/11/24 Allergies morphine [MORPHINE] Allergy (Unknown, Verified 09/17/24 09:12) VOMITING Codeine Phosphate Allergy (Unknown, Uncoded 09/17/24 09:12) Unknown HPI HPI O/V LTwrist scaphoid fx DOI 09/11/24 cast change : Details: Patient called the office earlier this morning stating that the thumb spica cast on her left hand has become loose and needs replacement. Patient presented to the office today were cast was removed. Skin is clean dry and intact. She does have a small abrasion on the palmar aspect of her hand which she says it is sore but there is no evidence of infection. 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 Cap refill brisk. Office Procedures Casting/Splints 92247-Gmwa/Wrist Cast Application Procedure code (CPT) selection complete Assessment & Plan Assessment & Plan (1) Fracture of scaphoid of left wrist: Code(s): S62.002A - Unspecified fracture of navicular [scaphoid] bone of left wrist, initial encounter for closed fracture Category: Medical Plan Patient called the office earlier this morning stating that the thumb spica cast on her left hand has become loose and needs replacement. Patient presented to the office today were cast was removed. Skin is clean dry and intact. She does have a small abrasion on the palmar aspect of her hand which she says it is sore but there is no evidence of infection. Patient was placed back into a custom molded short thumb spica cast. She will follow up at her normally scheduled follow up appointment, sooner if needed. Coding Level of Care Code Global (41955) Diagnoses Fracture of scaphoid of left wrist S62.002A CPT Codes Casting - CPT: 96875-Wvzs/Wrist Cast Application ([id number])
--- OUTSIDE RECORDS SUMMARY | 2024-09-26 12:01 | XMS_ITS | Data Portability ---
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 Procedures None recorded. Surgeries None recorded. Imaging XR, hand, 3 or more view 2023 024 [facility] Central Scheduling, [address] [place], [address], 08/05/2024 10:45:13 XR, chest, 2 view 2020 021 [facility] (Imaging), [address] [place], [address], 10/30/2020 12:17:21 Medication Orders terbinafi ne HCl 250 mg tablet 2023 024 [facility] #55656, [address] [place], [place], [id number], 08/05/2024 09:20:49 betametha sone dipropion ate 0.05 % lotion 2023 024 [facility] #52051, [address] [place] [address], [id number], 08/05/2024 09:34:47 Hibiclens 4 % topical liquid 2022 023 [facility] #32660, [address] [place] [address], [id number], 11/22/2023 11:49:38 terbinafi ne HCl 250 mg tablet 2022 023 [facility] #86173, [address] [place] [address], [id number], 05/23/2023 10:21:22 Medrol (Efrain) 4 mg tablets in a dose pack 2022 023 [facility] #28972, [address] [place] [address], [id number], 07/11/2023 08:42:37 Zithromax Z-Efrain 250 mg tablet 2022 023 [facility] #40196, [address] [place], [place], [id number], 07/11/2023 08:42:56 prednison e 10 mg tablet 2020 021 [facility] #64591, [address] [place] [address], [place], [id number], 07/11/2023 08:42:41 Patient TargetsNo targets recorded. Patient InstructionsNo instructions recorded. Reason for Referral None Reported. Results Created Date Observation Date Name Description Value Unit Range Abnormal Flag Note LastModifiedBy Organization Detail LastModifiedTime 10/31/19 21 10/30/2020 XR, chest , 2 view No observ ation record ed. [email or web address] [facility] (Medical Records) [address] [place], [address], 10/30/2020 13:25:20 07/10/20 23 07/05/2023 XR, chest , 2 view No observ ation record ed. [facility] (Medical Records) [address] [place], [address], 07/11/2023 10:39:02 08/05/20 24 08/05/2024 XR, hand, 3 or more view No observ ation record ed. [facility] (Medical Records) [address] [place], [address], 08/09/2024 13:16:52 08/15/19 25 08/15/2024 CT, hand, w/o contr ast No observ ation record ed. [email or web address] [facility] [address], [address], 08/16/2024 11:11:06 09/11/19 25 09/11/2024 XR, wrist No observ ation record ed. [email or web address] [facility] [address], [place], [address], 09/11/2024 13:46:12 09/17/19 25 09/17/2024 XR, wrist No observ ation record ed. [email or web address] [facility] (Medical Records) [address] [place], [address], 09/17/2024 09:30:14 Result Notes None recorded. 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 Active 2018 Not Available [facility] 4 09:44:14 Migraine 22613961 Active 2018 Not Available [facility] 4 09:44:14 Psoriasis 8945826 Active 2018 Not Available [facility] 4 09:44:14 COVID-19 286405391 Active 2020 1 Not Available [facility] 4 09:44:14 Wheezing 42026798 Active 2022 Not Available [facility] 4 09:44:14 Tinea corporis 65986985 Active 2022 Not Available [facility] 4 09:44:14 Asthma 307990174 Active 2022 Not Available [facility] 4 09:44:14 Acute exacerbat ion of chronic obstructi ve pulmonary disease 128649602 Active 2022 Not Available [facility] 4 09:44:14 Chronic bronchiti s 60617742 Active 2022 Not Available [facility] 4 09:44:14 Cough 52379072 Active 2022 Not Available [facility] 4 09:44:14 Chronic obstructi ve pulmonary disease 04451573 Active 2022 Not Available [facility] 4 09:44:14 Onychomyc osis due to dermatoph yte 009354849 Active 2023 Not Available [facility] 4 09:44:14 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 nism 90511436 Active 2023 RAFAEL YANCEY [address] [place], [address], [facility] 4 10:48:24 Pain in right hand 555877070874 109 Active 2023 RAFAEL YANCEY [address] [place], [address], [facility] 09:09:36 Notes:Some problems listed i n Documents: #[id number], #[id number] could not be added to this patient's chart. Please review these documents and add these problems to the patient's chart manually as needed. Problem Notes None recorded. Procedures Surgical History None recorded. Imaging Results Imaging Date Name Status LastModified by Organiz ation Details LastModified Time 10/30/2020 XR, chest, 2 view completed [email or web address] [facility] (Medical Records) [address] [place] [address], [address], 10/30/2020 13:25:20 07/05/2023 XR, chest, 2 view completed [facility] (Medical Records) [address] [place] [address], [address], 07/11/2023 10:39:02 08/05/2024 XR, hand, 3 or more view completed [facility] (Medical Records) [address] [place] [address], [address], 08/09/2024 13:16:52 08/15/2024 CT, hand, w/o contrast completed [email or web address] [facility] [address], [address], 08/16/2024 11:11:06 09/11/2024 XR, wrist completed [email or web address] [facility] [address], [address], 09/11/2024 13:46:12 09/17/2024 XR, wrist completed [email or web address] [facility] (Medical Records) [address] [place] [address], [address], 09/17/2024 09:30:14 Procedure Notes None recorded. Medical Equipment None Reported. Allergies Allergen ID Allergen Name Allergen Category Reaction Reaction Severity Criticality Documentation Date Start Date Code Code System Note Provider Name and Address Organization Details Recorded Time 7669 codeine medicatio n Not available Not available Not available 09/11/2018 2670 RxNorm Laura ferrer [facility] 9 15:18:20 2831 morphine medicatio n Not available Not available Not available 09/26/2018 7052 RxNorm Kiah ferrer [facility] 9 08:36:34 Medications Name Sig [...] Updated DateTime 12/24/2019 167.64 cm Laura Vaca [facility] 12/24/2019 10:58:38 Date Recorded Body height Body mass index (BMI) Body weight Heart rate Oxygen saturation Oxygen saturation in Arterial blood by Pulse oximetry Systolic blood pressure Diastolic blood pressure Provider Name and Address Organization Details Last Updated DateTime 1 167.64 cm 35.5 kg/m2 52857.3 2 g 82 /min 98 % 98 % 126 mm[Hg] 70 mm[Hg] Aliyah Alcantara [facility] 1 09:21:56 Date Recorded Body height Body mass index (BMI) Body weight Heart rate Oxygen saturation Oxygen saturation in Arterial blood by Pulse oximetry Systolic blood pressure Diastolic blood pressure Provider Name and Address Organization Details Last Updated DateTime 3 167.64 cm 37.9 kg/m2 958913. 21 g 87 /min 97 % 97 % 134 mm[Hg] 76 mm[Hg] Ayesha Holli [facility] 3 14:37:09 Date Recorded Body height Body mass index (BMI) Body weight Heart rate Oxygen saturation Oxygen saturation in Arterial blood by Pulse oximetry Systolic blood pressure Diastolic blood pressure Provider Name and Address Organization Details Last Updated DateTime 4 167.64 cm 37.9 kg/m2 348208. 21 g 86 /min 97 % 97 % 140 mm[Hg] 78 mm[Hg] Patricia Sorianomond [facility] 4 09:00:59 Date Recorded Body height Body mass index (BMI) Body weight Heart rate Oxygen saturation Oxygen saturation in Arterial blood by Pulse oximetry Systolic blood pressure Diastolic blood pressure Provider Name and Address Organization Details Last Updated DateTime 9 167.64 cm 33.6 kg/m2 43939.2 1 g 84 /min 99 % 99 % 130 mm[Hg] 80 mm[Hg] Jayne Iqbal [facility] 9 14:57:52 Social History Question Answer Notes LastModified by Organizat ion Details LastModified Time Tobacco Smoking Status Former Smoker Jayne ferrer [facility] 09/28/2018 14:55:05 What Was The Date Of Your Most Recent Tobacco Screening? 08/05/2024 [email or web address] Information not available 08/05/2024 Sex: Unknown Functional Status None recorded. Mental Status None recorded. Family History Nothing Reported. Medical History No medical history recorded. Gynecological HistoryNo gynecological history recorded. Obstetrics History GPAL:G 0 P 0 0 0 0 Past Encounters Encounter ID Performer Location Encounter Start Date Encounter Closed Date Diagnosis/Indication Diagnosis SNOMED-CT Code Diagnosis ICD10 Code Diagnosis Note [id number] Miladys Nichols NP, S [facility] [address] [facility],[place] [address] 09/11/2018 15:11:20 09/11/2018 15:51:48 Acute conjunctivitis 20337232 H10.31 [id number] Miladys Nichols NP, S [facility] [address] [facility],[place] [address] 09/28/2018 14:46:48 10/01/2018 08:23:34 Cough 59915315 R05 Psoriasis 5317588 L40.9 Migraine 00119808 G43.90 9 stopped w/menopaus e Screening procedure 2012 5006 Z13.9 Weight gain 0092114 R63. 5 working on weight loss, continue healthy exercise [id number] Justin Nelson DO [facility] [address] [place] [address],[address] [facility] [address] 05/03/2019 14:52:15 05/03/2019 15:21:14 Pre-surgery evaluation 024740033 Z01.818 pt is currently cleared for the proposed scleral surgery of her left eye as well as the follow up visit on 06-05-2019 for any further procedures required. [id number] RAFAEL YANCEY [facility] [address] [facility] [address] 12/24/2019 10:43:23 12/24/2019 12:12:57 Headache 61922706 R51 possibly COVID-like symptoms will get her tested tomorrow and f/u with results from testing told to stay hydrated and management symptoms pt advised to self-quara ntine for length of her symptoms until she is 72 hours symptom free pt understand s this Diarrhea 41788798 R19.7 as above Fatigue 45768868 R53.83 as above [id number] RAFAEL YANCEY [facility] [address] [facility],[place] [address] 10/30/2020 09:03:03 10/30/2020 12:17:21 Pruritic rash 02246083 L28.2 will trial script of pred and see if the rash is reduced Dyspnea 781384536 R06.00 will fu with XR to determine the integrity of her lungs [id number] RAFAEL YANCEY [facility] [address] [facility] [address] [place] [address] 05/16/2023 14:18:58 05/16/2023 16:26:41 Wheezing 14336757 R06.2 will start on medrol and z-efrain Tinea corporis 10105978 B35.4 start on hibiclens and terbinafin e [id number] RAFAEL YANCEY [facility] [address] [facility] [address] [place] [address] 08/05/2024 08:52:01 08/05/2024 09:37:50 Pain in right hand 2543790811 47658 M79.641 agreed to XR Adult heal th examination 231353005 Z00.00 BP is usually finewhite coat Asthma 992087940 J45.20 stable Onychomyco sis due to dermatophyte 641071683 B35.1 will set up with terbinafin e Psoriasis 4905712 L40.9 will set up with topical refill Health Concerns Section Related Observation LastModified by Organization Detai ls LastModified Time None Recorded Concern Status LastModified by Organization Details LastModified Time None Recorded Advance Directives Directive None Recorded Payers Encounter Date Sequence Insurance Name Policy Number Policy Gold Covered Member ID Gold Member ID Guarantor Name 05/03/2019 1 [facility] [id number] 6 Brandie Haley [id number] Brandie Haley 12/24/2019 1 [facility] [id number] 6 Brandie Haley [id number] Brandie Haley 10/30/2020 1 [facility] [id number] 6 Brandie Haley [id number] Brandie Haley 05/16/2023 1 [facility] [id number] 6 Brandie Haley [id number] Brandie Haley 08/05/2024 1 [facility] [id number] 6 Brandie Haley [id number] Brandie Haley Notes Date Note Type Note [...] walk 4 mphNotes: Justin Nelson DO [address] [place], [address], [facility] 06/03/2019 13:57:48 0 text/html TELEMED PHONE CALL: 17 minutes patient consented c/o fatigue, vomiting, loose stool, dizziness, lethargic, headache started two weeks ago started with a headache > gets it at the top of her head > intermittent (dull, throbbing ache) then progressed to stomach pain and fatigue and diarrhea 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) > constantly exposed to people with her [...] the chills on Monday RAFAEL YANCEY [address] [facility] [place], [address], [facility] 12/24/2019 11:43:47 1 text/html [...] of the left side RAFAEL YANCEY [address] [place], [address], [facility] 10/30/2020 13:52:05 3 text/html lab work f/u wheezing/bronchitis: continue with the albuterol inhalerwill set up with medrol and z-efrain as well for the patient negative COVID-19 patient has ringwormtopicals not perfectly effectivewill start on oral medicine and hibiclens will fu with patient after she completes course RAFAEL YANCEY [address] [place], [address], [facility] 05/16/2023 14:59:25 4 text/html [...] stable, no flare ups RAFAEL YANCEY [address] [place], [address], [facility] 08/05/2024 09:35:50 OBGyn Episode No OBEpisode recorded.
== END 2024-09-26 11:33 | disposition home or self-care (01) ==
PROVIDERS: PCP Internal Medicine; Visit Provider Physician Assistant
DX: S62.002A Unspecified fracture of navicular [scaphoid] bone of left wrist, initial encounter for closed fracture (principal)
CPT/HCPCS: 29085; 99024

== ENCOUNTER → 2024-09-26 10:51 | Outpatient (BNVA) | payer OTHER, SELFPAY | PROVIDERS: PCP Internal Medicine; Visit Provider Physician Assistant | DX: S62.002D Unspecified fracture of navicular [scaphoid] bone of left wrist, subsequent encounter for fracture with routine healing (principal) | CPT/HCPCS: 29085 ==

== ENCOUNTER 2024-10-22 08:38 | Outpatient (REF) | payer OTHER, SELFPAY ==
--- NOTE | ~2024-10-22 | XR_ITS ---
EXAMINATION: XR WRIST NAVICULAR LEFT HISTORY: M25.532 - Pain in left wrist COMPARISON: Comparison is made with the prior examination dated 09/17/2024. FINDINGS: Four views of the left wrist including a scaphoid view are submitted. Osseous mineralization is normal. No definite fracture is seen. The joint spaces are preserved. The soft tissues are unremarkable. XR/XR wrist LT w scaphoid IMPRESSION: No definite fracture is seen. Electronically signed by: Miguelito Vieira MD 10/23/2024 08:15 AM EDT
== END 2024-10-22 08:39 | disposition home or self-care (01) ==
LOC: HO.HOSX 08:38
PROVIDERS: Visit Provider Orthopaedic Surgery
DX: M25.532 Pain in left wrist (principal)
CPT/HCPCS: 73110

== ENCOUNTER 2024-10-22 13:04 | Outpatient (AMB) | payer OTHER, SELFPAY ==
--- NOTE | 2024-10-22 13:23 | MHC.OFFVIS ---
Vital Signs 10/22/24 13:23 Height 5 ft 6 in Intake Visit Reasons: OV-Left wrist scaphoid fx-four week follow up Intake Note: Brandie 58 yr old female presents today for her follow up visit for her left scaphoid fracture, S/P fall, DOI 09/11/24. She was seen on 09/26/24 with RAFAEL Cardenas for a cast change due to it being loose. Cast removed today in office. xrays updated. STates she is having pain and soreness in her thumb Allergies morphine [MORPHINE] Allergy (Unknown, Verified 10/22/24 13:42) VOMITING Codeine Phosphate Allergy (Unknown, Uncoded 10/22/24 13:42) Unknown HPI HPI OV-Left wrist scaphoid fx-four week follow up: Details: Brandie is a 58 year old right hand dominant woman who returns for her left scaphoid fracture, S/P fall, DOI: 09/11/24. She was seen on 09/26/24 by RAFAEL Cardenas for a cast change as hers was coming loose . She says she is doing better. She says she still has some tenderness in her palm, where she had the blood blister from striking an object during her fall. She says her last casts were pressing on this and irritating it. 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 She feels that she is perfectly capable to perform all of her duties at work. She denies any numbness or tingling. She denies smoking or vaping of any kind. 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 At last visit we saw a nondisplaced scaphoid fracture, on today's radiographs there is no displacement of the fracture is difficult to see. Assessment & Plan Assessment & Plan (1) Fracture of scaphoid of left wrist: Code(s): S62.002A - Unspecified fracture of navicular [scaphoid] bone of left wrist, initial encounter for closed fracture Category: Medical Plan Assessment & Plan: 1. 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 She feels she is able to return to driving as she was just driving for 2 weeks down in [place], without difficulty. She was given a note to return to work and may drive without restrictions She will follow up in 3 weeks, with X-rays, 3 V L wrist+scaphoid, OOP. Anticipate discontinuing the cast based on exam and radiographs. Scribed for Radha Caballero MD by Morales Mota, director medical safety, on 10/22/24 at 1:50 PM, EST. Orders: Orders XR wrist LT w scaphoid Today M25.532 - Pain in left wrist Coding Level of Care Code Global (55658) Diagnoses Fracture of scaphoid of left wrist S62.002A
--- OUTSIDE RECORDS SUMMARY | 2024-10-22 15:20 | XMS_ITS | Data Portability ---
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 Procedures None recorded. Surgeries None recorded. Imaging XR, hand, 3 or more view 2023 024 [facility], [address] [place], [address], 08/05/2024 10:45:13 XR, chest, 2 view 2020 021 [facility] (Imaging), [address] [place], [address], 10/30/2020 12:17:21 Medication Orders terbinafi ne HCl 250 mg tablet 2023 024 [facility] #[id number], [address], [place], [id number], 08/05/2024 09:20:49 betametha sone dipropion ate 0.05 % lotion 2023 024 [facility] #38352, [address] [place] [address], [id number], 08/05/2024 09:34:47 Hibiclens 4 % topical liquid 2022 023 [facility] #27062, [address] [place] [address], [id number], 11/22/2023 11:49:38 terbinafi ne HCl 250 mg tablet 2022 023 [facility] #65324, [address] [place] [address], [id number], 05/23/2023 10:21:22 Medrol (Efrain) 4 mg tablets in a dose pack 2022 023 [facility] #69717, [address] [place] [address], [id number], 07/11/2023 08:42:37 Zithromax Z-Efrain 250 mg tablet 2022 023 [facility] #65502, [address], [place], [id number], 07/11/2023 08:42:56 prednison e 10 mg tablet 2020 021 [facility] #91066, [address], [place], [id number], 07/11/2023 08:42:41 Patient TargetsNo targets recorded. Patient InstructionsNo instructions recorded. Reason for Referral None Reported. Results Created Date Observation Date Name Description Value Unit Range Abnormal Flag Note LastModifiedBy Organization Detail LastModifiedTime 10/31/19 21 10/30/2020 XR, chest , 2 view No observ ation record ed. [email or web address] [facility] (Medical Records) [address] [place], [address], 10/30/2020 13:25:20 07/10/20 23 07/05/2023 XR, chest , 2 view No observ ation record ed. [facility] (Medical Records) [address] [place], [address], 07/11/2023 10:39:02 08/05/20 24 08/05/2024 XR, hand, 3 or more view No observ ation record ed. [facility] (Medical Records) [address] [place], [address], 08/09/2024 13:16:52 08/15/19 25 08/15/2024 CT, hand, w/o contr ast No observ ation record ed. [email or web address] [facility] [address], [address], 08/16/2024 11:11:06 09/11/19 25 09/11/2024 XR, wrist No observ ation record ed. [email or web address] [facility] [address], [place], [address], 09/11/2024 13:46:12 09/17/19 25 09/17/2024 XR, wrist No observ ation record ed. [email or web address] [facility] (Medical Records) [address] [place], [address], 09/17/2024 09:30:14 Result Notes None recorded. 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 Active 2018 Not Available [facility] 4 09:44:14 Migraine 90962515 Active 2018 Not Available [facility] 4 09:44:14 Psoriasis 6582268 Active 2018 Not Available [facility] 4 09:44:14 COVID-19 384069161 Active 2020 1 Not Available [facility] 4 09:44:14 Wheezing 74220679 Active 2022 Not Available [facility] 4 09:44:14 Tinea corporis 86887191 Active 2022 Not Available [facility] 4 09:44:14 Asthma 489883244 Active 2022 Not Available [facility] 4 09:44:14 Acute exacerbat ion of chronic obstructi ve pulmonary disease 438171327 Active 2022 Not Available [facility] 4 09:44:14 Chronic bronchiti s 57974114 Active 2022 Not Available [facility] 4 09:44:14 Cough 44719986 Active 2022 Not Available [facility] 4 09:44:14 Chronic obstructi ve pulmonary disease 44816976 Active 2022 Not Available [facility] 4 09:44:14 Onychomyc osis due to dermatoph yte 197681677 Active 2023 Not Available [facility] 4 09:44:14 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 Please review these documents and add these problems to the patient's chart manually as needed. Problem Notes None recorded. Procedures Surgical History None recorded. Imaging Results Imaging Date Name Status LastModified by Organiz ation Details LastModified Time 10/30/2020 XR, chest, 2 view completed [email or web address] [facility] (Medical Records) [address] [place] [address], [address], 10/30/2020 13:25:20 07/05/2023 XR, chest, 2 view completed [facility] (Medical Records) [address] [place] [address], [address], 07/11/2023 10:39:02 08/05/2024 XR, hand, 3 or more view completed [facility] (Medical Records) [address] [place] [address], [address], 08/09/2024 13:16:52 08/15/2024 CT, hand, w/o contrast completed [email or web address] [facility] [address], [address], 08/16/2024 11:11:06 09/11/2024 XR, wrist completed [email or web address] [facility] [address], [address], 09/11/2024 13:46:12 09/17/2024 XR, wrist completed [email or web address] [facility] (Medical Records) [address] [place] [address], [address], 09/17/2024 09:30:14 Procedure Notes None recorded. Medical Equipment None Reported. Allergies Allergen ID Allergen Name Allergen Category Reaction Reaction Severity Criticality Documentation Date Start Date Code Code System Note Provider Name and Address Organization Details Recorded Time 1791 codeine medicatio n Not available Not available Not available 09/11/2018 2670 RxNorm Laura ferrer [facility] 9 15:18:20 2831 morphine medicatio n Not available Not available Not available 09/26/2018 7052 RxNorm Kiah ferrer [facility] 9 08:36:34 Medications Name [...] Updated DateTime 12/24/2019 167.64 cm Laura Vaca [facility] 12/24/2019 10:58:38 Date Recorded Body height Body mass index (BMI) Body weight Heart rate Oxygen saturation Oxygen saturation in Arterial blood by Pulse oximetry Systolic blood pressure Diastolic blood pressure Provider Name and Address Organization Details Last Updated DateTime 1 167.64 cm 35.5 kg/m2 65211.3 2 g 82 /min 98 % 98 % 126 mm[Hg] 70 mm[Hg] Aliyah Alcantara [facility] 1 09:21:56 Date Recorded Body height Body mass index (BMI) Body weight Heart rate Oxygen saturation Oxygen saturation in Arterial blood by Pulse oximetry Systolic blood pressure Diastolic blood pressure Provider Name and Address Organization Details Last Updated DateTime 3 167.64 cm 37.9 kg/m2 910605. 21 g 87 /min 97 % 97 % 134 mm[Hg] 76 mm[Hg] Ayesha Holli [facility] 3 14:37:09 Date Recorded Body height Body mass index (BMI) Body weight Heart rate Oxygen saturation Oxygen saturation in Arterial blood by Pulse oximetry Systolic blood pressure Diastolic blood pressure Provider Name and Address Organization Details Last Updated DateTime 4 167.64 cm 37.9 kg/m2 782916. 21 g 86 /min 97 % 97 % 140 mm[Hg] 78 mm[Hg] Patricia Sorianomond [facility] 4 09:00:59 Date Recorded Body height Body mass index (BMI) Body weight Heart rate Oxygen saturation Oxygen saturation in Arterial blood by Pulse oximetry Systolic blood pressure Diastolic blood pressure Provider Name and Address Organization Details Last Updated DateTime 9 167.64 cm 33.6 kg/m2 90109.2 1 g 84 /min 99 % 99 % 130 mm[Hg] 80 mm[Hg] Jayne Iqbal [facility] 9 14:57:52 Social History Question Answer Notes LastModified by Organizat ion Details LastModified Time Tobacco Smoking Status Former Smoker Jayne ferrer [facility] 09/28/2018 14:55:05 What Was The Date Of Your Most Recent Tobacco Screening? 08/05/2024 [email or web address] Information not available 08/05/2024 Sex: Unknown Functional Status None recorded. Mental Status None recorded. Family History Nothing Reported. Medical History No medical history recorded. Gynecological HistoryNo gynecological history recorded. Obstetrics History GPAL:G 0 P 0 0 0 0 Past Encounters Encounter ID Performer Location Encounter Start Date Encounter Closed Date Diagnosis/Indication Diagnosis SNOMED-CT Code Diagnosis ICD10 Code Diagnosis Note [id number] Miladys Nichols NP, S [facility] [address] [facility],[place] [address] 09/11/2018 15:11:20 09/11/2018 15:51:48 Acute conjunctivitis 17140236 H10.31 [id number] Miladys Nichols NP, S [facility] [address],[place] [address] 09/28/2018 14:46:48 10/01/2018 08:23:34 Cough 29927449 R05 Psoriasis 9302582 L40.9 Migraine 40214761 G43.90 9 stopped w/menopaus e Screening procedure 2012 5006 Z13.9 Weight gain 0298490 R63. 5 working on weight loss, continue healthy exercise [id number] Justin Nelson DO [facility] [address] [place] [address],[address] [facility] [place] [address] 05/03/2019 14:52:15 05/03/2019 15:21:14 Pre-surgery evaluation 611983305 Z01.818 pt is currently cleared for the proposed scleral surgery of her left eye as well as the follow up visit on 06-05-2019 for any further procedures required. [id number] RAFAEL YANCEY [facility] [address] [facility] [address], [place] [address] 12/24/2019 10:43:23 12/24/2019 12:12:57 Headache 30616247 R51 possibly COVID-like symptoms will get her tested tomorrow and f/u with results from testing told to stay hydrated and management symptoms pt advised to self-quara ntine for length of her symptoms until she is 72 hours symptom free pt understand s this Diarrhea 11186968 R19.7 as above Fatigue 68285614 R53.83 as above [id number] RAFAEL YANCEY [facility] [address] [facility],[place] [address] 10/30/2020 09:03:03 10/30/2020 12:17:21 Pruritic rash 10657414 L28.2 will trial script of pred and see if the rash is reduced Dyspnea 619867555 R06.00 will fu with XR to determine the integrity of her lungs [id number] RAFAEL YANCEY [facility] [address],[place] [address] 05/16/2023 14:18:58 05/16/2023 16:26:41 Wheezing 27482966 R06.2 will start on medrol and z-efrain Tinea corporis 02162791 B35.4 start on hibiclens and terbinafin e [id number] RAFAEL YANCEY [facility] [address],[place] [address] 08/05/2024 08:52:01 08/05/2024 09:37:50 Pain in right hand 5527171926 96175 M79.641 agreed to XR Adult heal th examination 242848362 Z00.00 BP is usually finewhite coat Asthma 391739159 J45.20 stable Onychomyco sis due to dermatophyte 530936819 B35.1 will set up with terbinafin e Psoriasis 4065449 L40.9 will set up with topical refill Health Concerns Section Related Observation LastModified by Organization Detai ls LastModified Time None Recorded Concern Status LastModified by Organization Details LastModified Time None Recorded Advance Directives Directive None Recorded Payers Encounter Date Sequence Insurance Name Policy Number Policy Gold Covered Member ID Gold Member ID Guarantor Name 05/03/2019 1 [facility] [id number] Brandie Haley [id number] Brandie Haley 12/24/2019 1 [facility] [id number] Brandie Haley [id number] Brandie Haley 10/30/2020 1 [facility] [id number] Brandie Haley [id number] Brandie Haley 05/16/2023 1 [facility] [id number] Brandie Haley [id number] Brandie Haley 08/05/2024 1 [facility] [id number] Brandie Haley [id number] Brandie Haley Notes Date Note Type Note [...] walk 4 mphNotes: Justin Nelson DO [address] [place], [address], [facility] 06/03/2019 13:57:48 0 text/html TELEMED PHONE CALL: 17 minutes patient consented c/o fatigue, vomiting, loose stool, dizziness, lethargic, headache started two weeks ago started with a headache > gets it at the top of her head > intermittent (dull, throbbing ache) then progressed to stomach pain and fatigue and diarrhea 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) > constantly exposed to people with her [...] the chills on Monday RAFAEL YANCEY [address] [facility], [place], [address], [facility] 12/24/2019 11:43:47 1 text/html c/o [...] of the left side RAFAEL YANCEY [address] [place], [address], [facility] 10/30/2020 13:52:05 3 text/html lab work f/u wheezing/bronchitis: continue with the albuterol inhalerwill set up with medrol and z-efrain as well for the patient negative COVID-19 patient has ringwormtopicals not perfectly effectivewill start on oral medicine and hibiclens will fu with patient after she completes course RAFAEL YANCEY [address] [place], [address], [facility] 05/16/2023 14:59:25 4 text/html Annual [...] stable, no flare ups RAFAEL YANCEY [address] [place], [address], [facility] 08/05/2024 09:35:50 OBGyn Episode No OBEpisode recorded.
== END 2024-10-22 14:29 | disposition home or self-care (01) ==
LOC: HO.HOS 13:04
PROVIDERS: PCP Internal Medicine; Visit Provider Orthopaedic Surgery
DX: S62.002A Unspecified fracture of navicular [scaphoid] bone of left wrist, initial encounter for closed fracture (principal)
CPT/HCPCS: 99024

== ENCOUNTER → 2024-10-22 13:06 | Outpatient (BNV) | payer OTHER, SELFPAY | PROVIDERS: Visit Provider Radiology Diagnostic Radiology | DX: M25.532 Pain in left wrist (principal) | CPT/HCPCS: 73110 ==

== ENCOUNTER 2024-10-24 10:05 | Outpatient (AMB) | payer OTHER, SELFPAY ==
--- NOTE | 2024-10-24 10:19 | MHC.OFFVIS ---
Vital Signs 10/24/24 10:20 Height 5 ft 6 in Intake Visit Reasons: OV-LT hand FCof scaphoid of LT wrist-cast change Intake Note: Brandie 58 yr old female presents today for a cast change due to loose cast and decrease in swelling for her Fracture of scaphoid of left wrist 09/11/24 Allergies morphine [MORPHINE] Allergy (Unknown, Verified 10/24/24 10:20) VOMITING Codeine Phosphate Allergy (Unknown, Uncoded 10/24/24 10:20) Unknown HPI HPI OV-LT hand FCof scaphoid of LT wrist-cast change: Details: Ms. Haley presents to the office today for cast change of the left hand thumb spica for a scaphoid fracture. Patient reports that the cast is extremely loose as the swelling has gone down and needs to be replaced. She denies any new injury or trauma. Denies any increase in pain. 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 Cap refill brisk. Office Procedures Casting/Splints 02783-Hhnh/Wrist Cast Application Procedure code (CPT) selection complete Assessment & Plan Assessment & Plan (1) Fracture of scaphoid of left wrist: Code(s): S62.002A - Unspecified fracture of navicular [scaphoid] bone of left wrist, initial encounter for closed fracture Category: Medical Plan Ms. Haley presents to the office today for cast change of the left hand thumb spica for a scaphoid fracture. Patient reports that the cast is extremely loose as the swelling has gone down and needs to be replaced. She denies any new injury or trauma. Denies any increase in pain. Patient was placed back into a custom-molded short-arm thumb spica cast. The patient was educated on cast maintenance and instructed to keep the cast clean, dry, and intact. However, should the cast become wet, dirty, damaged, or there are any concerns please call the office immediately for a cast change. She will follow up at her normally scheduled follow up appointment, sooner if needed. Coding Level of Care Code Global (67993) Diagnoses Fracture of scaphoid of left wrist S62.002A CPT Codes Casting - CPT: 71414-Cvgt/Wrist Cast Application ([id number])
== END 2024-10-24 10:54 | disposition home or self-care (01) ==
LOC: HO.HOS 10:06
PROVIDERS: Visit Provider Physician Assistant
DX: S62.002A Unspecified fracture of navicular [scaphoid] bone of left wrist, initial encounter for closed fracture (principal)
CPT/HCPCS: 29075; 99024

== ENCOUNTER → 2024-10-24 10:05 | Outpatient (BNVA) | payer OTHER, SELFPAY | PROVIDERS: Visit Provider Physician Assistant | DX: S62.002D Unspecified fracture of navicular [scaphoid] bone of left wrist, subsequent encounter for fracture with routine healing (principal); X58.XXXD Exposure to other specified factors, subsequent encounter | CPT/HCPCS: 29075 ==

== ENCOUNTER 2024-10-28 09:54 | Outpatient (AMB) | payer OTHER, SELFPAY ==
--- NOTE | 2024-10-28 10:07 | MHC.OFFVIS ---
Vital Signs 10/28/24 10:10 Height 5 ft 6 in Handedness Right Intake Visit Reasons: OV- L scaphoid wrist fx, DOI: 09/11/24, cast change Intake Note: Brandie 58 year old female who presents today for her follow up visit for her left scaphoid fracture, S/P fall, DOI 09/11/24. She is here today for a cast change. She says her cast is rubbing on her palm and creating a blister. Allergies morphine [MORPHINE] Allergy (Unknown, Verified 10/28/24 10:10) VOMITING Codeine Phosphate Allergy (Unknown, Uncoded 10/28/24 10:10) Unknown HPI HPI OV- L scaphoid wrist fx, DOI: 09/11/24, cast change: Details: Brandie 58 year old female who presents today for her follow up visit for her left scaphoid fracture, S/P fall, DOI 09/11/24. She is here today for a cast change. She says her cast is rubbing on her palm and creating a blister. The patient reports that her previous cast had more padding in this area, but the most recent 1 placed had less padding, and therefore she feels it was rubbing on this area on the base of the thumb. Denies numbness or tingling in the left upper extremity. No other acute complaints or concerns this time. 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 There is a small area of superficial skin irritation at the base of the left thumb, no open area, no drainage, no evidence of infection. Cap refill brisk. Office Procedures Casting/Splints 81296-Ybzq/Wrist Cast Application Procedure code (CPT) selection complete Assessment & Plan Assessment & Plan (1) Fracture of scaphoid of left wrist: Code(s): S62.002A - Unspecified fracture of navicular [scaphoid] bone of left wrist, initial encounter for closed fracture Category: Medical Plan Ms. Haley presents to the office today for cast change of the left hand thumb spica for a scaphoid fracture. Patient reports that the cast is extremely loose as the swelling has gone down and needs to be replaced. She denies any new injury or trauma. Denies any increase in pain. Patient was placed back into a custom-molded short-arm thumb spica cast. The patient was educated on cast maintenance and instructed to keep the cast clean, dry, and intact. However, should the cast become wet, dirty, damaged, or there are any concerns please call the office immediately for a cast change. She will follow up at her normally scheduled follow up appointment, sooner if needed. Coding Level of Care Code Global (89248) Diagnoses Fracture of scaphoid of left wrist S62.002A CPT Codes Casting - CPT: 97389-Pefy/Wrist Cast Application ([id number])
== END 2024-10-28 10:47 | disposition home or self-care (01) ==
LOC: HO.HOS 09:54
DX: S62.002A Unspecified fracture of navicular [scaphoid] bone of left wrist, initial encounter for closed fracture (principal)
CPT/HCPCS: 29085; 99024

== ENCOUNTER → 2024-10-28 09:54 | Outpatient (BNVA) | payer OTHER, SELFPAY | DX: S62.002D Unspecified fracture of navicular [scaphoid] bone of left wrist, subsequent encounter for fracture with routine healing (principal); X58.XXXD Exposure to other specified factors, subsequent encounter | CPT/HCPCS: 29085 ==

== ENCOUNTER 2024-10-29 09:40 | Outpatient (AMB) | payer OTHER, SELFPAY ==
--- NOTE | 2024-10-29 09:57 | MHC.OFFVIS ---
Vital Signs 10/29/24 10:12 Height 5 ft 6 in Handedness Right Intake Visit Reasons: OV- L scaphoid wrist fx, DOI: 09/11/24, cast change Intake Note: Brandie 58 year old female who presents today for her follow up visit for her left scaphoid fracture, S/P fall, DOI 09/11/24. She is here today for a cast change. She says her cast is sliding down her hand. Allergies morphine [MORPHINE] Allergy (Unknown, Verified 10/29/24 10:12) VOMITING Codeine Phosphate Allergy (Unknown, Uncoded 10/29/24 10:12) Unknown HPI HPI OV- L scaphoid wrist fx, DOI: 09/11/24, cast change: Details: Brandie 58 year old female who presents today for her follow up visit for her left scaphoid fracture, S/P fall, DOI 09/11/24. She is here today for a cast change. She says her cast feels too loose. Patient reports that she was attempting to remove her switch her yesterday when b. Denies numbness or tingling in the left upper extremity. No other acute complaints or concerns this time. 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 There is a small area of superficial skin irritation at the base of the left thumb, no open area, no drainage, no evidence of infection. Cap refill brisk. Office Procedures Casting/Splints 19419-Nvra/Wrist Cast Application Procedure code (CPT) selection complete Assessment & Plan Assessment & Plan (1) Fracture of scaphoid of left wrist: Code(s): S62.002A - Unspecified fracture of navicular [scaphoid] bone of left wrist, initial encounter for closed fracture Category: Medical Plan Ms. Haley presents to the office today for cast change of the left hand thumb spica for a scaphoid fracture. Patient reports that the cast is extremely loose as the swelling has gone down and needs to be replaced. She denies any new injury or trauma. Denies any increase in pain. Patient was placed back into a custom-molded short-arm thumb spica cast. The patient was educated on cast maintenance and instructed to keep the cast clean, dry, and intact. However, should the cast become wet, dirty, damaged, or there are any concerns please call the office immediately for a cast change. She will follow up at her normally scheduled follow up appointment, sooner if needed. Coding Level of Care Code Global (48321) Diagnoses Fracture of scaphoid of left wrist S62.002A CPT Codes Casting - CPT: 05785-Vctx/Wrist Cast Application ([id number])
== END 2024-10-29 10:42 | disposition home or self-care (01) ==
LOC: HO.HOS 09:40
DX: S62.002A Unspecified fracture of navicular [scaphoid] bone of left wrist, initial encounter for closed fracture (principal)
CPT/HCPCS: 29085; 99024

== ENCOUNTER → 2024-10-29 09:40 | Outpatient (BNVA) | payer OTHER, SELFPAY | DX: S62.002D Unspecified fracture of navicular [scaphoid] bone of left wrist, subsequent encounter for fracture with routine healing (principal); W19.XXXD Unspecified fall, subsequent encounter | CPT/HCPCS: 29085 ==

== ENCOUNTER 2024-11-12 09:30 | Outpatient (AMB) | payer OTHER, SELFPAY ==
--- NOTE | 2024-11-12 10:20 | A.OFFVIS_ITS ---
Vital Signs 11/12/24 10:20 Height 5 ft 6 in Intake Visit Reasons: O/V hand Fracture of scaphoid of left wrist Intake Note: Brandie 58 year old female who presents today for her follow up visit for her left scaphoid fracture, S/P fall, DOI 09/11/24. Cast removed and xrays updated in office. States she has soreness and stiffness possible to being in cast. Allergies morphine [MORPHINE] Allergy (Unknown, Verified 11/12/24 10:26) VOMITING Codeine Phosphate Allergy (Unknown, Uncoded 11/12/24 10:26) Unknown HPI HPI O/V hand Fracture of scaphoid of left wrist: Details: Brandie is a 58 year old right hand dominant woman who returns for her left scaphoid fracture, S/P fall, DOI: 09/11/24. She has been seen multiple times for cast changes, including 09/26/24, 10/24/24, 10/28/24, & 10/29/24. She says she is doing better. She still has some soreness & stiffness which she feels is due to wearing a cast. She says she has been using her hand for activities such as opening her fridge door. She says she still has some pain & tenderness in her palm, where she had her blood blister after her fall. 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 She feels that she is perfectly capable to perform all of her duties at work. She denies any numbness or tingling. She also complains of pain in her right hand. She says she felt a snapping sensation & pain in her hand back in June. She denies smoking or vaping of any kind. 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 Review of Systems Const All systems reviewed & are unremarkable except as noted in HPI and below Physical Exam Const General: no acute distress and alert Orientation/consciousness: patient oriented x3 Neuro General: patient oriented x3 Extrem Other: Evaluation of Left Upper Extremity: The patient is alert, oriented, and in no acute distress Neuro: Median, Ulnar, Radial nerves motor and sensory intact and sensation is normal to the tips of all digits Vascular: Cap refill brisk ROM: She can make a fist and extend all her digits No snuffbox tenderness today, and no tenderness over the proximal pole of the scaphoid No scaphoid tubercle tenderness Radiographs: 3 views of the left wrist, plus a scaphoid view, were taken and viewed by me today in clinic. Scaphoid waist fracture non-displaced, with good evidence of interval bony healing. Difficult to see fracture on Radiographs Psych Appearance: grossly normal Affect: normal affect Attitude: cooperative Assessment & Plan Assessment & Plan (1) Fracture of scaphoid of left wrist: Code(s): S62.002A - Unspecified fracture of navicular [scaphoid] bone of left wrist, initial encounter for closed fracture Category: Medical (2) Right hand pain: Code(s): M79.641 - Pain in right hand Category: Medical Plan Assessment & Plan: 1. Left scaphoid waist fracture, nondisplaced DOI: 09/11/24 status post fall I educated her about this condition She was fitted for a velcro wrist splint, to be worn like a cast except for showering, for the next 4 weeks. She can also remove this when at rest to work on ROM exercises I discussed activity modifications, she is to lift nothing heavier than a cellphone for the next 4 weeks. She is still to avoid any falls or impact activities at this time. She will perform gentle finger & wrist ROM exercises at home, out of her splint. 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 She was given a note to return to work, with a 10lb weight limit, and no restrictions on driving while in her splint. She will follow up in 3 weeks, with X-rays, 3 V L wrist+scaphoid, OOP. 2. Right hand pain Onset June 2024 She will follow up in 8 weeks to discuss this, when her left wrist has recovered. Scribed for Radha Caballero MD by Morales Mota, medical affairs director, on 11/12/24 at 10:40 AM, EST. Orders: Orders XR wrist LT w scaphoid Today M25.532 - Pain in left wrist Coding Level of Care Code Global (05698) Diagnoses Fracture of scaphoid of left wrist S62.002A Right hand pain M79.648
--- OUTSIDE RECORDS SUMMARY | 2024-11-12 10:38 | XMS_ITS | Data Portability ---
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 Procedures None recorded. Surgeries None recorded. Imaging XR, hand, 3 or more view 2023 024 [facility], [address] [place], [address], 08/05/2024 10:45:13 XR, chest, 2 view 2020 021 [facility] ([facility]), [address] [facility], [place], [address], 10/30/2020 12:17:21 Medication Orders terbinafi ne HCl 250 mg tablet 2023 024 KAYODE Not available 08/05/2024 09:20:49 betametha sone dipropion ate 0.05 % lotion 2023 024 KAYODE Not available 08/05/2024 09:34:47 Hibiclens 4 % topical liquid 2022 023 [id number], [address], [place], [id number], 11/22/2023 11:49:38 terbinafi ne HCl 250 mg tablet 2022 023 [facility]12405, [address], [place], [id number], 05/23/2023 10:21:22 Medrol (Efrain) 4 mg tablets in a dose pack 2022 023 [facility] #65274, [address], [place], [id number], 07/11/2023 08:42:37 Zithromax Z-Efrain 250 mg tablet 2022 023 [facility] #17480, [address], [place], [id number], 07/11/2023 08:42:56 prednison e 10 mg tablet 2020 021 [facility] #02053, [address], [place], [id number], 07/11/2023 08:42:41 Patient TargetsNo targets recorded. Patient InstructionsNo instructions recorded. Reason for Referral None Reported. Results Created Date Observation Date Name Description Value Unit Range Abnormal Flag Note LastModifiedBy Organization Detail LastModifiedTime 10/31/19 21 10/30/2020 XR, chest , 2 view No observ ation record ed. [email or web address] [facility] (Medical Records) [address] [place], [address], 10/30/2020 13:25:20 07/10/20 23 07/05/2023 XR, chest , 2 view No observ ation record ed. [facility] (Medical Records) [address] [place], [address], 07/11/2023 10:39:02 08/05/20 24 08/05/2024 XR, hand, 3 or more view No observ ation record ed. [facility] (Medical Records) [address] [place], [address], 08/09/2024 13:16:52 08/15/19 25 08/15/2024 CT, hand, w/o contr ast No observ ation record ed. [email or web address] [facility] [address] [place] [address], [address], 08/16/2024 11:11:06 09/11/19 25 09/11/2024 XR, wrist No observ ation record ed. [email or web address] [facility] [address], [address], 09/11/2024 13:46:12 09/17/19 25 09/17/2024 XR, wrist No observ ation record ed. [email or web address] [facility] (Medical Records) [address] [place], [address], 09/17/2024 09:30:14 Result Notes None recorded. Problems Name Problem SNOMED Code Status Onset Date Resolution Date Notes Provider Name and Address Organization Details Recorded Time Temporoma ndibular joint disorder 38783591 Active 2018 Not Available [facility] 4 09:44:14 Migraine 12784833 Active 2018 Not Available [facility] 4 09:44:14 Psoriasis 4327285 Active 2018 Not Available [facility] 4 09:44:14 COVID-19 969804753 Active 2020 1 Not Available [facility] 4 09:44:14 Wheezing 56218336 Active 2022 Not Available [facility] 4 09:44:14 Tinea corporis 76140883 Active 2022 Not Available [facility] 4 09:44:14 Asthma 298362066 Active 2022 Not Available [facility] 4 09:44:14 Acute exacerbat ion of chronic obstructi ve pulmonary disease 452880923 Active 2022 Not Available [facility] 4 09:44:14 Chronic bronchiti s 35066133 Active 2022 Not Available [facility] 4 09:44:14 Cough 20293109 Active 2022 Not Available [facility] 4 09:44:14 Chronic obstructi ve pulmonary disease 63075651 Active 2022 Not Available [facility] 4 09:44:14 Onychomyc osis due to dermatoph yte 071924588 Active 2023 Not Available [facility] 4 09:44:14 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 Please review these documents and add these problems to the patient's chart manually as needed. Problem Notes None recorded. Procedures Surgical History None recorded. Imaging Results Imaging Date Name Status LastModified by Organiz ation Details LastModified Time 10/30/2020 XR, chest, 2 view completed [email or web address] [facility] (Medical Records) [address] [place] [address], [address], 10/30/2020 13:25:20 07/05/2023 XR, chest, 2 view completed [facility] (Medical Records) [address] [place] [address], [address], 07/11/2023 10:39:02 08/05/2024 XR, hand, 3 or more view completed [facility] (Medical Records) [address] [place] [address], [address], 08/09/2024 13:16:52 08/15/2024 CT, hand, w/o contrast completed [email or web address] [facility] [address], [address], 08/16/2024 11:11:06 09/11/2024 XR, wrist completed [email or web address] [facility] [address], [address], 09/11/2024 13:46:12 09/17/2024 XR, wrist completed [email or web address] [facility] (Medical Records) [address] [place] [address], [address], 09/17/2024 09:30:14 Procedure Notes None recorded. Medical Equipment None Reported. Allergies Allergen ID Allergen Name Allergen Category Reaction Reaction Severity Criticality Documentation Date Start Date Code Code System Note Provider Name and Address Organization Details Recorded Time 0457 codeine medicatio n Not available Not available Not available 09/11/2018 2670 RxNorm [facility] 9 15:18:20 2831 morphine medicatio n Not available Not available Not available 09/26/2018 7052 RxNorm [facility] 9 08:36:34 Medications Name Sig [...] Updated DateTime 12/24/2019 167.64 cm Laura Vaca [facility] 12/24/2019 10:58:38 Date Recorded Body height Body mass index (BMI) Body weight Heart rate Oxygen saturation Oxygen saturation in Arterial blood by Pulse oximetry Systolic blood pressure Diastolic blood pressure Provider Name and Address Organization Details Last Updated DateTime 1 167.64 cm 35.5 kg/m2 12138.3 2 g 82 /min 98 % 98 % 126 mm[Hg] 70 mm[Hg] Aliyah Alcantara [facility] 1 09:21:56 Date Recorded Body height Body mass index (BMI) Body weight Heart rate Oxygen saturation Oxygen saturation in Arterial blood by Pulse oximetry Systolic blood pressure Diastolic blood pressure Provider Name and Address Organization Details Last Updated DateTime 3 167.64 cm 37.9 kg/m2 534015. 21 g 87 /min 97 % 97 % 134 mm[Hg] 76 mm[Hg] Ayesha Cameronult [facility] 3 14:37:09 Date Recorded Body height Body mass index (BMI) Body weight Heart rate Oxygen saturation Oxygen saturation in Arterial blood by Pulse oximetry Systolic blood pressure Diastolic blood pressure Provider Name and Address Organization Details Last Updated DateTime 4 167.64 cm 37.9 kg/m2 971949. 21 g 86 /min 97 % 97 % 140 mm[Hg] 78 mm[Hg] Patriciapreston Johnston [facility] 4 09:00:59 Date Recorded Body height Body mass index (BMI) Body weight Heart rate Oxygen saturation Oxygen saturation in Arterial blood by Pulse oximetry Systolic blood pressure Diastolic blood pressure Provider Name and Address Organization Details Last Updated DateTime 9 167.64 cm 33.6 kg/m2 22761.2 1 g 84 /min 99 % 99 % 130 mm[Hg] 80 mm[Hg] Jayne Iqbal [facility] 9 14:57:52 Social History Question Answer Notes LastModified by Organizat ion Details LastModified Time Tobacco Smoking Status [facility] 09/28/2018 14:55:05 What Was The Date Of Your Most Recent Tobacco Screening? 08/05/2024 Information not available 08/05/2024 Sex: Unknown Functional Status None recorded. Mental Status None recorded. Family History Nothing Reported. Medical History No medical history recorded. Gynecological HistoryNo gynecological history recorded. Obstetrics History GPAL:G 0 P 0 0 0 0 Past Encounters Encounter ID Performer Location Encounter Start Date Encounter Closed Date Diagnosis/Indication Diagnosis SNOMED-CT Code Diagnosis ICD10 Code Diagnosis Note [id number] Miladys Nichols NP, S [facility] [address] [facility],[place] [address] 09/11/2018 15:11:20 09/11/2018 15:51:48 Acute conjunctivitis 54101037 H10.31 [id number] Miladys Nichols NP, [facility] [address] [place] [address], [place] [address] 09/28/2018 14:46:48 10/01/2018 08:23:34 Cough 92804717 R05 Psoriasis 3073466 L40.9 Migraine 91670632 G43.90 9 stopped w/menopaus e Screening procedure 2012 5006 Z13.9 Weight gain 3727596 R63. 5 working on weight loss, continue healthy exercise [id number] Justin Nelson, [facility] [address] [place] [address], [place] [address] 05/03/2019 14:52:15 05/03/2019 15:21:14 Pre-surgery evaluation 533405659 Z01.818 pt is currently cleared for the proposed scleral surgery of her left eye as well as the follow up visit on 06-05-2019 for any further procedures required. [id number] RAFAEL YANCEY [facility] [address] [place] [address], [place] [address] 12/24/2019 10:43:23 12/24/2019 12:12:57 Headache 18121472 R51 possibly COVID-like symptoms will get her tested tomorrow and f/u with results from testing told to stay hydrated and management symptoms pt advised to self-quara ntine for length of her symptoms until she is 72 hours symptom free pt understand s this Diarrhea 07768852 R19.7 as above Fatigue 34785589 R53.83 as above [id number] RAFAEL YANCEY [facility] [address] [place] [address], [place] [address] 10/30/2020 09:03:03 10/30/2020 12:17:21 Pruritic rash 96147885 L28.2 will trial script of pred and see if the rash is reduced Dyspnea 497621973 R06.00 will fu with XR to determine the integrity of her lungs [id number] RAFAEL YANCEY [facility] [address] [facility],[place] [address] 05/16/2023 14:18:58 05/16/2023 16:26:41 Wheezing 96515634 R06.2 will start on medrol and z-efrain Tinea corporis 72553336 B35.4 start on hibiclens and terbinafin e [id number] RAFAEL YANCEY [facility] [address] [facility] [address],[place] [address] 08/05/2024 08:52:01 08/05/2024 09:37:50 Pain in right hand 2275885159 16136 M79.641 agreed to XR Adult heal th examination 577853010 Z00.00 BP is usually finewhite coat Asthma 383452173 J45.20 stable Onychomyco sis due to dermatophyte 192022467 B35.1 will set up with terbinafin e Psoriasis 3226131 L40.9 will set up with topical refill Health Concerns Section Related Observation LastModified by Organization Detai ls LastModified Time None Recorded Concern Status LastModified by Organization Details LastModified Time None Recorded Advance Directives Directive None Recorded Payers Encounter Date Sequence Insurance Name Policy Number Policy Gold Covered Member ID Gold Member ID Guarantor Name 05/03/2019 1 [facility] [id number] Brandie Tera [id number] Brandie Tera 12/24/2019 1 [facility] [id number] 6 Brandie Tera [id number] Brandie Tera 10/30/2020 1 [facility] [id number] 6 Brandie Tera [id number] Brandie Tera 05/16/2023 1 [facility] [id number] 6 Brandie Tera [id number] Brandie Tera 08/05/2024 1 [facility] [id number] 6 Brandie Tera [id number] Brandie Sweetaud Notes Date Note Type Note Provider Name [...] walk 4 mphNotes: Justin Nelson DO [address] [place], [address], [facility] 06/03/2019 13:57:48 0 text/html TELEMED PHONE CALL: 17 minutes patient consented c/o fatigue, vomiting, loose stool, dizziness, lethargic, headache started two weeks ago started with a headache > gets it at the top of her head > intermittent (dull, throbbing ache) then progressed to stomach pain and fatigue and diarrhea 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) > constantly exposed to people with her [...] have the chills on Monday RAFAEL YANCEY [address] [place] [address], [phone], [facility] 12/24/2019 11:43:47 1 [...] of the left side RAFAEL YANCEY [address] [place], [address], [facility] 10/30/2020 13:52:05 3 text/html lab work f/u wheezing/bronchitis: continue with the albuterol inhalerwill set up with medrol and z-efrain as well for the patient negative COVID-19 patient has ringwormtopicals not perfectly effectivewill start on oral medicine and hibiclens will fu with patient after she completes course RAFAEL YANCEY [address] [place], [address], [facility] 05/16/2023 14:59:25 4 [...] stable, no flare ups RAFAEL YANCEY [address] [place], [address], [facility] 08/05/2024 09:35:50 OBGyn Episode No OBEpisode recorded.
== END 2024-11-12 10:56 | disposition home or self-care (01) ==
LOC: HO.HOS 09:30
PROVIDERS: Visit Provider Orthopaedic Surgery
DX: S62.002A Unspecified fracture of navicular [scaphoid] bone of left wrist, initial encounter for closed fracture (principal); M79.641 Pain in right hand
CPT/HCPCS: 99024

== ENCOUNTER → 2024-11-12 09:34 | Outpatient (BNV) | payer OTHER, SELFPAY | PROVIDERS: Visit Provider Radiology Diagnostic Radiology | DX: M25.532 Pain in left wrist (principal) | CPT/HCPCS: 73110 ==

== ENCOUNTER 2024-11-12 10:43 | Outpatient (REF) | payer OTHER, SELFPAY ==
--- NOTE | ~2024-11-12 | XR_ITS ---
CLINICAL HISTORY: M25.532 - Pain in left wrist 4 view left wrist Comparison: None Findings: Bones intact. No dislocations. No significant loss of joint space, osteophyte, or erosions. No radiopaque foreign body. IMPRESSION: 1. No acute findings This document has been electronically signed by: Kike Christianson MD on 11/12/2024 14:34:09
--- OUTSIDE RECORDS SUMMARY | 2024-11-13 12:23 | XMS_ITS | Continuity of Care Document ---
Author Organization [facility] Address [address] [place] [address] [place] [address] Assessment Encounter Date Assessment Date Assessment LastModified by Organization Details LastModified Time 11/12/2024 11/12/2024 Patient agreed and verbally consents to this audio and video Telehealth appt via a secure platform [email or web address] Not available 11/12/2024 16:46:30 Plan of Treatment Reminders Order Date Submit Date Provider Last Modified By Organization Details Last Modified Time Details Appointments ANNUAL EXAM 2025 09:00A RAFAEL BOSTON Not available Not available Not available Lab None recorded. Referral None recorded. Procedures None recorded. Surgeries None recorded. Imaging None recorded. Medication Orders benzonata te 200 mg capsule 2024 025 [facility][id number], [address] [place], [place], [id number], 11/12/2024 16:55:39 ipratropi um bromide 17 mcg/actua tion HFA aerosol inhaler 2024 025 [facility] #[id number], [address] [place], [place], [id number], 11/12/2024 16:55:40 Patient TargetsNo targets recorded. Patient InstructionsNo instructions recorded. Reason for Referral None Reported. Problems Name Problem SNOMED Code Status Onset Date Resolution Date Notes Provider Name and Address Organization Details Recorded Time Temporoma ndibular joint disorder 22916769 Active 2018 Not Available [facility] 4 09:44:14 Migraine 59615434 Active 2018 Not Available [facility] 4 09:44:14 Psoriasis 4778723 Active 2018 Not Available [facility] 4 09:44:14 COVID-19 351925770 Active 2020 1 Not Available [facility] 4 09:44:14 Wheezing 09098014 Active 2022 Not Available [facility] 4 09:44:14 Tinea corporis 50866579 Active 2022 Not Available [facility] 4 09:44:14 Asthma 575370383 Active 2022 Not Available [facility] 4 09:44:14 Acute exacerbat ion of chronic obstructi ve pulmonary disease 189995669 Active 2022 Not Available [facility] 4 09:44:14 Chronic bronchiti s 13647900 Active 2022 Not Available [facility] 4 09:44:14 Cough 60498772 Active 2022 Not Available [facility] 4 09:44:14 Chronic obstructi ve pulmonary disease 85940433 Active 2022 Not Available [facility] 4 09:44:14 Onychomyc osis due to dermatoph yte 829727893 Active 2023 Not Available [facility] 4 09:44:14 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 Please review these documents and add these problems to the patient's chart manually as needed. Problem Notes None recorded. Medical Equipment None Reported. Allergies Allergen ID Allergen Name Allergen Category Reaction Reaction Severity Criticality Documentation Date Start Date Code Code System Note Provider Name and Address Organization Details Recorded Time 2785 codeine medicatio n Not available Not available Not available 09/11/2018 2670 RxNorm Laura England carissa [facility] 9 15:18:20 2831 morphine medicatio n Not available Not available Not available 09/26/2018 7052 RxNorm Kiah Irwinadithya ferrer [facility] 9 08:36:34 Medications Name [...] completed Not Available Not Available Not Available benzonatate 200 mg capsule Take 1 capsule 3 times a day by oral route as needed for 14 days. 2024 active Not Available Not Available Not Avai lable meloxicam 15 mg tablet TAKE 1 TABLET [...] Not Available terbinafine HCl 250 mg tablet TAKE 1 TABLET BY MOUTH EVERY DAY active Not Available Not Available No t Available sulfacetami de sodium 10 % eye drops [...] 2 PUFFS BY MOUTH EVERY 4 HOURS active Not Available Not Available No t Available betamethaso ne dipropionat e 0.05 % lotion [...] completed Not Available Not Available Not Available ipratropium bromide 17 mcg/actuati on HFA aerosol inhaler Inhale 2 puffs 4 times a day by inhalatio n route as needed for 30 days. 2024 active Not Available Not Available Not Avai lable Co Q-10 active Not Available Not Avail [...] Available Not Available No t Available Vitals None Recorded Social History Question Answer Notes LastModified by Organizat ion Details LastModified Time Tobacco Smoking Status Former Smoker Jayne ferrer [facility] 09/28/2018 14:55:05 What Was The Date Of Your Most Recent Tobacco Screening? 08/05/2024 [email or web address] Information not available 08/05/2024 Sex: Unknown Functional Status None recorded. Mental Status None recorded. Family History Nothing Reported. Medical History No medical history recorded. Gynecological HistoryNo gynecological history recorded. Obstetrics History GPAL:G 0 P 0 0 0 0 Past Encounters Encounter ID Performer Location Encounter Start Date Encounter Closed Date Diagnosis/Indication Diagnosis SNOMED-CT Code Diagnosis ICD10 Code Diagnosis Note [id number] RAFAEL YANCEY [facility] [address],[place] [address] 11/12/2024 13:57:37 11/13/2024 08:31:48 Asthma 635282798 J45.20 trial alt, can't do steroid inhalers Exacerbati on of moderate persistent asthma 408726257 J45.41 declines abxcan't be on steroid due to glaucoma, pressure issues Health Concerns Section Related Observation LastModified by Organization Detai ls LastModified Time None Recorded Concern Status LastModified by Organization Details LastModified Time None Recorded Payers Encounter Date Sequence Insurance Name Policy Number Policy Gold Covered Member ID Gold Member ID Guarantor Name 11/12/[address] [place] [address] [id number] Brandie Haley [id number] Brandie Haley Notes Date Note Type Note Provider Name a nd Address Organization Details Recorded Time 11/12/2024 text/html c/o asthma exacerbation The patient is participating in this appointment via telemedicine communication with a phone call/video calling service (Doxy)The patient consents to use of these platforms in place of an in-person appointment due to either sick symptoms the patient is presenting with or current office closure due to COVID exposure in order to keep our office staff and patients safe The patient presents to the office today with concerns of sick symptoms including cough, wheezing, night sweats, body aches, fatigue, chills The symptoms started originally this past weekendThe patient reports exposure to children, 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
--- OUTSIDE RECORDS SUMMARY | 2024-11-13 12:23 | XMS_ITS | Data Portability ---
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 MODERATE MUST MEET 2 OUT OF [...] IS COVERED [email or web address] Not available 10/30/2020 13:51:31 11/12/2024 11/12/2024 Patient agreed and verbally consents to this audio and video Telehealth appt via a secure platform [email or web address] Not available 11/12/2024 16:46:30 Plan of Treatment Reminders Order Date Submit Date Provider Last Modified By Organization Details Last Modified Time Details Appointments ANNUAL EXAM 2025 09:00A M RAFAEL YANCEY Not available Not available Not available Lab SARS CoV 2 RNA (COVID-19 ), QL, 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 Procedures None recorded. Surgeries None recorded. Imaging XR, hand, 3 or more view 2023 024 [facility], [address] [place], [address], 08/05/2024 10:45:13 XR, chest, 2 view 2020 021 [facility] (Imaging), [address] [place], [address], 10/30/2020 12:17:21 Medication Orders benzonata te 200 mg capsule 2024 025 [facility]189, [address] [place], [place], [id number], 11/12/2024 16:55:39 ipratropi um bromide 17 mcg/actua tion HFA aerosol inhaler 2024 025 [facility]10088, [address] [place], [place], [id number], 11/12/2024 16:55:40 terbinafi ne HCl 250 mg tablet 2023 024 KAYODE Not available 08/05/2024 09:20:49 betametha sone dipropion ate 0.05 % lotion 2023 024 KAYODE Not available 08/05/2024 09:34:47 Hibiclens 4 % topical liquid 2022 023 [facility]54654, [address] [place], [place], [id number], 11/22/2023 11:49:38 terbinafi ne HCl 250 mg tablet 2022 023 [facility] #07495, [address] [place], [place], [id number], 05/23/2023 10:21:22 Medrol (Efrain) 4 mg tablets in a dose pack 2022 023 [facility] #07937, [address] [place], [place], [id number], 07/11/2023 08:42:37 Zithromax Z-Efrain 250 mg tablet 2022 023 [facility] #15221, [address] [place], [place], [id number], 07/11/2023 08:42:56 prednison e 10 mg tablet 2020 021 [facility] #44696, [address] [place], [place], [id number], 07/11/2023 08:42:41 Patient TargetsNo targets recorded. Patient InstructionsNo instructions recorded. Reason for Referral None Reported. Results Created Date Observation Date Name Description Value Unit Range Abnormal Flag Note LastModifiedBy Organization Detail LastModifiedTime 10/31/19 21 10/30/2020 XR, chest , 2 view No observ ation record ed. [email or web address] [facility] (Medical Records) [address] [place] [address], [address], 10/30/2020 13:25:20 07/10/20 23 07/05/2023 XR, chest , 2 view No observ ation record ed. [facility] (Medical Records) [address] [place], [address], 07/11/2023 10:39:02 08/05/20 24 08/05/2024 XR, hand, 3 or more view No observ ation record ed. [facility] (Medical Records) [address] [place], [address], 08/09/2024 13:16:52 08/15/19 25 08/15/2024 CT, hand, w/o contr ast No observ ation record ed. [email or web address] [facility] [address] [address], [place], [address], 08/16/2024 11:11:06 09/11/19 25 09/11/2024 XR, wrist No observ ation record ed. [facility] [address] [facility] [address], [place], [address], 09/11/2024 13:46:12 09/17/19 25 09/17/2024 XR, wrist No observ ation record ed. [facility] (Medical Records) [address] [facility], [place], [address], 09/17/2024 09:30:14 Result Notes None recorded. Problems Name Problem SNOMED Code Status Onset Date Resolution Date Notes Provider Name and Address Organization Details Recorded Time Temporoma ndibular joint disorder 08933151 Active 2018 Not Available [facility] 4 09:44:14 Migraine 64263139 Active 2018 Not Available [facility] 4 09:44:14 Psoriasis 0381591 Active 2018 Not Available [facility] 4 09:44:14 COVID-19 102555883 Active 2020 1 Not Available [facility] 4 09:44:14 Wheezing 08354485 Active 2022 Not Available [facility] 4 09:44:14 Tinea corporis 60497039 Active 2022 Not Available [facility] 4 09:44:14 Asthma 561688372 Active 2022 Not Available [facility] 4 09:44:14 Acute exacerbat ion of chronic obstructi ve pulmonary disease 849780283 Active 2022 Not Available [facility] 4 09:44:14 Chronic bronchiti s 23703026 Active 2022 Not Available [facility] 4 09:44:14 Cough 61397923 Active 2022 Not Available [facility] 4 09:44:14 Chronic obstructi ve pulmonary disease 63578191 Active 2022 Not Available [facility] 4 09:44:14 Onychomyc osis due to dermatoph yte 207404721 Active 2023 Not Available [facility] 4 09:44:14 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 4 10:48:24 Pain in right hand 498647346096 109 Active 2023 RAFAEL YANCEY [address] [place], [address], [facility] 4 09:09:36 Exacerbat ion of moderate persisten t asthma 651680646 Active 2024 RAFAEL YANCEY [address] [place] [address], [address], [facility] 5 16:46:10 Notes:Some problems listed i n Documents: #[id number], #[id number] could not be added to this patient's chart. Please review these documents and add these problems to the patient's chart manually as needed. Problem Notes None recorded. Procedures Surgical History None recorded. Imaging Results Imaging Date Name Status LastModified by Beronica andre Details LastModified Time 10/30/2020 XR, chest, 2 view completed [email or web address] [place] [address] (Medical Records) [address] [place] [address], [address], 10/30/2020 13:25:20 07/05/2023 XR, chest, 2 view completed [facility] (Medical Records) [address] [place], [address], 07/11/2023 10:39:02 08/05/2024 XR, hand, 3 or more view completed [facility] (Medical Records) [address] [place] [address], [address], 08/09/2024 13:16:52 08/15/2024 CT, hand, w/o contrast completed [email or web address] [facility] [address], [address], 08/16/2024 11:11:06 09/11/2024 XR, wrist completed [email or web address] [facility] [address] [facility] [address], [place], [address], 09/11/2024 13:46:12 09/17/2024 XR, wrist completed [facility] (Medical Records) [address] [place], [address], 09/17/2024 09:30:14 Procedure Notes None recorded. Medical Equipment None Reported. Allergies Allergen ID Allergen Name Allergen Category Reaction Reaction Severity Criticality Documentation Date Start Date Code Code System Note Provider Name and Address Organization Details Recorded Time 2787 codeine medicatio n Not available Not available Not available 09/11/2018 2670 RxNorm Laura ferrer [facility] 9 15:18:20 2831 morphine medicatio n Not available Not available Not available 09/26/2018 7052 RxNorm Kiah Kj ferrer [facility] 9 08:36:34 Medications Name [...] BY MOUTH EVERY DAY FOR 14 DAYS 12/05 /2023 completed Not Available Not Available Not Available [...] Last Updated DateTime 12/24/2019 167.64 cm Laura England [facility] 12/24/2019 10:58:38 Date Recorded Body height Body mass index (BMI) Body weight Heart rate Oxygen saturation Oxygen saturation in Arterial blood by Pulse oximetry Systolic blood pressure Diastolic blood pressure Provider Name and Address Organization Details Last Updated DateTime 1 167.64 cm 35.5 kg/m2 51103.3 2 g 82 /min 98 % 98 % 126 mm[Hg] 70 mm[Hg] Aliyah Alcantara [facility] 1 09:21:56 Date Recorded Body height Body mass index (BMI) Body weight Heart rate Oxygen saturation Oxygen saturation in Arterial blood by Pulse oximetry Systolic blood pressure Diastolic blood pressure Provider Name and Address Organization Details Last Updated DateTime 3 167.64 cm 37.9 kg/m2 409080. 21 g 87 /min 97 % 97 % 134 mm[Hg] 76 mm[Hg] Ayesha De La Garza [facility] 3 14:37:09 Date Recorded Body height Body mass index (BMI) Body weight Heart rate Oxygen saturation Oxygen saturation in Arterial blood by Pulse oximetry Systolic blood pressure Diastolic blood pressure Provider Name and Address Organization Details Last Updated DateTime 4 167.64 cm 37.9 kg/m2 157265. 21 g 86 /min 97 % 97 % 140 mm[Hg] 78 mm[Hg] Patricia Sorianomond [facility] 4 09:00:59 Social History Question Answer Notes LastModified by Organizat ion Details LastModified Time Tobacco Smoking Status [facility] 14:55:05 What Was The Date Of Your Most Recent Tobacco Screening? 08/05/2024 [email or web address] Information not available 08/05/2024 Sex: Unknown Functional Status None recorded. Mental Status None recorded. Family History Nothing Reported. Medical History No medical history recorded. Gynecological HistoryNo gynecological history recorded. Obstetrics History GPAL:G 0 P 0 0 0 0 Past Encounters Encounter ID Performer Location Encounter Start Date Encounter Closed Date Diagnosis/Indication Diagnosis SNOMED-CT Code Diagnosis ICD10 Code Diagnosis Note [id number] Miladys Nichols NP, [facility] [address] [place] [address],[place] [address] 09/11/2018 15:11:20 09/11/2018 15:51:48 Acute conjunctivitis 25549939 H10.31 [id number] Miladys Nichols NP, [address] [address] 09/28/2018 14:46:48 10/01/2018 08:23:34 Cough 32504289 R05 Psoriasis 4558740 L40.9 Migraine 74342566 G43.90 9 stopped w/menopaus e Screening procedure 2012 5006 Z13.9 Weight gain 1478368 R63. 5 working on weight loss, continue healthy exercise [id number] Justin Nelson DO [facility] [address] [place] [address],[place] [address] 05/03/2019 14:52:15 05/03/2019 15:21:14 Pre-surgery evaluation 741115292 Z01.818 pt is currently cleared for the proposed scleral surgery of her left eye as well as the follow up visit on 06-05-2019 for any further procedures required. [id number] RAFAEL YANCEY [facility] [address] [facility] [place] [address] 12/24/2019 10:43:23 12/24/2019 12:12:57 Headache 62027125 R51 possibly COVID-like symptoms will get her tested tomorrow and f/u with results from testing told to stay hydrated and management symptoms pt advised to self-quara ntine for length of her symptoms until she is 72 hours symptom free pt understand s this Diarrhea 21139520 R19.7 as above Fatigue 05412699 R53.83 as above [id number] RAFAEL YANCEY [facility] [address] [facility], [place] [address] 10/30/2020 09:03:03 10/30/2020 12:17:21 Pruritic rash 54839002 L28.2 will trial script of pred and see if the rash is reduced Dyspnea 612215102 R06.00 will fu with XR to determine the integrity of her lungs [id number] RAFAEL YANCEY [facility] [address] [facility], [place] [address] 05/16/2023 14:18:58 05/16/2023 16:26:41 Wheezing 10524490 R06.2 will start on medrol and z-efrain Tinea corporis 88818823 B35.4 start on hibiclens and terbinafin e [id number] RAFAEL YANCEY [facility] [address] [facility], [place] [address] 08/05/2024 08:52:01 08/05/2024 09:37:50 Pain in right hand 4368372030 75021 M79.641 agreed to XR Adult heal th examination 940915263 Z00.00 BP is usually finewhite coat Asthma 229924936 J45.20 stable Onychomyco sis due to dermatophyte 299355320 B35.1 will set up with terbinafin e Psoriasis 2099999 L40.9 will set up with topical refill [id number] RAFAEL YANCEY [facility] [address] [facility] [address],[place] [address] 11/12/2024 13:57:37 11/13/2024 08:31:48 Asthma 787554731 J45.20 trial alt, can't do steroid inhalers Exacerbati on of moderate persistent asthma 695993396 J45.41 declines abxcan't be on steroid due to glaucoma, pressure issues Health Concerns Section Related Observation LastModified by Organization Detai ls LastModified Time None Recorded Concern Status LastModified by Organization Details LastModified Time None Recorded Advance Directives Directive None Recorded Payers Encounter Date Sequence Insurance Name Policy Number Policy Gold Covered Member ID Gold Member ID Guarantor Name 12/24/2019 1 [facility] [id number] Brandie Tera [id number] Brandie Tera 10/30/2020 1 [facility] [id number] Brandie Tera [id number] Brandie Tera 05/16/2023 1 [facility] [id number] Brandie Tera [id number] Brandie Tera 08/05/2024 1 [facility] [id number] 6 Brandie Tera [id number] Brandie Tera 11/12/2024 1 [facility] [id number] 6 Brandie Tera [id number] Brandie Tera Notes Date Note Type Note Provider Name a nd Address Organization Details Recorded Time 0 text/html TELEMED PHONE CALL: 17 minutes patient consented c/o fatigue, vomiting, loose stool, dizziness, lethargic, headache started two weeks ago started with a headache > gets it at the top of her head > intermittent (dull, throbbing ache) then progressed to stomach pain and fatigue and diarrhea 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 12/24/2019 11:43:47 1 [...] of the left side RAFAEL YANCEY [address] [facility], [place], [address], [facility] 10/30/2020 13:52:05 3 text/html lab work f/u wheezing/bronchitis: continue with the albuterol inhalerwill set up with medrol and z-efrain as well for the patient negative COVID-19 patient has ringwormtopicals not perfectly effectivewill start on oral medicine and hibiclens will fu with patient after she completes course RAFAEL YANCEY [address] [facility], [place], [address], 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 08/05/2024 09:35:50 5 text/html c/o asthma exacerbation The patient is participating in this appointment via telemedicine communication with a phone call/video calling service (NetSpark)The patient consents to use of these platforms [...] was negative x 1 RAFAEL YANCEY [address] [facility], [place], [address], [facility] 11/12/2024 16:58:28 OBGyn Episode No OBEpisode recorded.
== END 2024-11-12 10:44 | disposition home or self-care (01) ==
LOC: HO.HOSX 10:43
PROVIDERS: Visit Provider Orthopaedic Surgery
DX: M25.532 Pain in left wrist (principal)
CPT/HCPCS: 73110

== ENCOUNTER 2024-12-17 09:31 | Outpatient (AMB) | payer OTHER, SELFPAY ==
--- NOTE | 2024-12-17 09:59 | A.OFFVIS_ITS ---
Vital Signs 12/17/24 09:59 Height 5 ft 6 in Intake Visit Reasons: O/V hand Fracture of scaphoid of left wrist Intake Note: Brandie 58 year old female who presents today for her follow up visit for her left scaphoid fracture, S/P fall, DOI 09/11/24. States she wears her brace as needs, continues to have pain at base of her thumb and the base of her palm when appyling pressure. Xrays updated in office. Allergies morphine [MORPHINE] Allergy (Unknown, Verified 12/17/24 10:07) VOMITING Codeine Phosphate Allergy (Unknown, Uncoded 12/17/24 10:07) Unknown HPI HPI O/V hand Fracture of scaphoid of left wrist: Details: Brandie is a 58 year old right hand dominant woman who returns for her left scaphoid fracture, S/P fall, DOI: 09/11/24. She has been seen multiple times for cast changes, including 09/26/24, 10/24/24, 10/28/24, & 10/29/24. She says she is doing better. She still has some pain at the base of her thumb & base of her palm when applying pressure. 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 She feels that she is perfectly capable to perform all of her duties at work. She denies any numbness or tingling. She denies smoking or vaping of any kind. 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 Review of Systems Const All systems reviewed & are unremarkable except as noted in HPI and below Physical Exam Const General: no acute distress and alert Orientation/consciousness: patient oriented x3 Neuro General: patient oriented x3 Extrem Other: Evaluation of Left Upper Extremity: The patient is alert, oriented, and in no acute distress Neuro: Median, Ulnar, Radial nerves motor and sensory intact and sensation is normal to the tips of all digits Vascular: Cap refill brisk ROM: She can make a fist and extend all her digits No snuffbox tenderness today, and no tenderness over the proximal pole of the scaphoid No scaphoid tubercle tenderness Mild tenderness over the basal joint Radiographs: 3 views of the left wrist, plus a scaphoid view, were taken and viewed by me today in clinic. Scaphoid waist fracture non-displaced, It is easier to see the fracture on radiographs today, compared to 11/12/24, which is concerning. Psych Appearance: grossly normal Affect: normal affect Attitude: cooperative Assessment & Plan Assessment & Plan (1) Fracture of scaphoid of left wrist: Code(s): S62.002A - Unspecified fracture of navicular [scaphoid] bone of left wrist, initial encounter for closed fracture Category: Medical (2) Right hand pain: Code(s): M79.641 - Pain in right hand Category: Medical Plan Assessment & Plan: 1. Left scaphoid waist fracture, nondisplaced DOI: 09/11/24 S/P fall I educated her about this condition and I showed her the today's x-ray. She assures me that she is being careful with her hand and not doing too much. She very much would like to remain in a splint so that she can finish working as a bronc buster. I will allow her to continue to wear her velcro wrist splint, like a cast except for showering, for the next 4 weeks. She can also remove this when at rest to work on ROM exercises I discussed activity modifications, nothing heavier than a cell phone She will perform finger & wrist ROM exercises at home, out of her splint. 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 She will continue to wear her splint at work. She will follow up in 4-5 weeks, with X-rays, 3 V L wrist+scaphoid, OOP. 2. Right hand pain Onset June 2024 She will follow up in 8 weeks to discuss this, when her left wrist has recovered. Scribed for Radha Caballero MD by Morales Mota, diagnostic medical sonographer, on 12/17/24 at 10:20 AM, EST. Orders: Orders XR wrist LT w scaphoid Today M25.532 - Pain in left wrist Coding Level of Care Code Est Pt Level 3 (68781) Diagnoses Fracture of scaphoid of left wrist S62.002A Right hand pain M79.641
--- OUTSIDE RECORDS SUMMARY | 2024-12-17 10:09 | XMS_ITS | Data Portability ---
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 Procedures None recorded. Surgeries None recorded. Imaging XR, hand, 3 or more view 2023 024 [facility], [address] [place], [address], 08/05/2024 10:45:13 XR, chest, 2 view 2020 021 [facility] (Imaging), [address] [place], [address], 10/30/2020 12:17:21 Medication Orders benzonata te 200 mg capsule 2024 025 [facility], [address], [place], [id number], 11/12/2024 16:55:39 ipratropi um bromide 17 mcg/actua tion HFA aerosol inhaler 2024 025 [facility], [address], [place], [id number], 11/12/2024 16:55:40 terbinafi ne HCl 250 mg tablet 2023 024 KAYODE Not available 08/05/2024 09:20:49 betametha sone dipropion ate 0.05 % lotion 2023 024 KAYODE Not available 08/05/2024 09:34:47 Hibiclens 4 % topical liquid 2022 023 [facility], [address], [place], [id number], 11/22/2023 11:49:38 terbinafi ne HCl 250 mg tablet 2022 023 [facility]88871, [address], [place], [id number], 05/23/2023 10:21:22 Medrol (Efrain) 4 mg tablets in a dose pack 2022 023 [facility]66230, [address], [place], [id number], 07/11/2023 08:42:37 Zithromax Z-Efrain 250 mg tablet 2022 023 [facility] #40472, [address], [place], [id number], 07/11/2023 08:42:56 prednison e 10 mg tablet 2020 021 [facility] #84476, [address], [place], [id number], 07/11/2023 08:42:41 Patient TargetsNo targets recorded. Patient InstructionsNo instructions recorded. Reason for Referral None Reported. Results Created Date Observation Date Name Description Value Unit Range Abnormal Flag Note LastModifiedBy Organization Detail LastModifiedTime 10/31/19 21 10/30/2020 XR, chest , 2 view No observ ation record ed. [email or web address] [facility] (Medical Records) [address] [place] [address], [address], 10/30/2020 13:25:20 07/10/20 23 07/05/2023 XR, chest , 2 view No observ ation record ed. [facility] (Medical Records) [address] [place], [address], 07/11/2023 10:39:02 08/05/20 24 08/05/2024 XR, hand, 3 or more view No observ ation record ed. [facility] (Medical Records) [address] [place], [address], 08/09/2024 13:16:52 08/15/19 25 08/15/2024 CT, hand, w/o contr ast No observ ation record ed. [email or web address] [facility] [address] [address], [place], [address], 08/16/2024 11:11:06 09/11/19 25 09/11/2024 XR, wrist No observ ation record ed. [email or web address] [facility] [address] [facility] [address], [place], [address], 09/11/2024 13:46:12 09/17/19 25 09/17/2024 XR, wrist No observ ation record ed. [facility] (Medical Records) [address] [facility], [place], [address], 09/17/2024 09:30:14 Result Notes None recorded. 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 Active 2018 Not Available [facility] 4 09:44:14 Migraine 33558570 Active 2018 Not Available [facility] 4 09:44:14 Psoriasis 7253189 Active 2018 Not Available [facility] 4 09:44:14 COVID-19 917542226 Active 2020 1 Not Available [facility] 4 09:44:14 Wheezing 44018224 Active 2022 Not Available [facility] 4 09:44:14 Tinea corporis 10252749 Active 2022 Not Available [facility] 4 09:44:14 Asthma 401133363 Active 2022 Not Available [facility] 4 09:44:14 Acute exacerbat ion of chronic obstructi ve pulmonary disease 872882059 Active 2022 Not Available [facility] 4 09:44:14 Chronic bronchiti s 12777143 Active 2022 Not Available [facility] 4 09:44:14 Cough 90619733 Active 2022 Not Available [facility] 4 09:44:14 Chronic obstructi ve pulmonary disease 89561319 Active 2022 Not Available [facility] 4 09:44:14 Onychomyc osis due to dermatoph yte 886255035 Active 2023 Not Available [facility] 4 09:44:14 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 [facility] 67854984 Active 2023 RAFAEL YANCEY [address] [place], [address], [facility] 4 10:48:24 Pain in right hand 679112283073 109 Active 2023 RAFAEL YANCEY [address] [place], [address], [facility] 4 09:09:36 Exacerbat ion of moderate persisten t asthma 425121682 Active 2024 RAFAEL YANCEY [address] [place] [address], [address], [facility] 5 16:46:10 Notes:Some problems listed i n Documents: #[id number], #[id number] could not be added to this patient's chart. Please review these documents and add these problems to the patient's chart manually as needed. Problem Notes None recorded. Procedures Surgical History None recorded. Imaging Results Imaging Date Name Status LastModified by Beronica andre Details LastModified Time 10/30/2020 XR, chest, 2 view completed [email or web address] [place] [address] (Medical Records) [address] [place] [address], [address], 10/30/2020 13:25:20 07/05/2023 XR, chest, 2 view completed [facility] (Medical Records) [address] [place], [address], 07/11/2023 10:39:02 08/05/2024 XR, hand, 3 or more view completed [facility] (Medical Records) [address] [place] [address], [address], 08/09/2024 13:16:52 08/15/2024 CT, hand, w/o contrast completed [email or web address] [facility] [address], [address], 08/16/2024 11:11:06 09/11/2024 XR, wrist completed [email or web address] [facility] [address] [facility] [address], [place], [address], 09/11/2024 13:46:12 09/17/2024 XR, wrist completed [facility] (Medical Records) [address] [place], [address], 09/17/2024 09:30:14 Procedure Notes None recorded. Medical Equipment None Reported. Allergies Allergen ID Allergen Name Allergen Category Reaction Reaction Severity Criticality Documentation Date Start Date Code Code System Note Provider Name and Address Organization Details Recorded Time 2786 codeine medicatio n Not available Not available [...] Available Not Available benzonatate 200 mg capsule TAKE 1 CAPSULE BY MOUTH THREE TIMES DAILY FOR 14 DAYS NEEDED active Not Available Not Available No t Available meloxicam 15 mg tablet TAKE 1 [...] TAKE 1 TABLET BY MOUTH EVERY DAY 2024 active Not Available Not Available Not [...] completed Not Available Not Available Not Available Atrovent HFA 17 mcg/actuati on aerosol inhaler INHALE 2 PUFFS BY MOUTH FOUR TIMES DAILY NEEDED 2024 active Not Available Not Available Not [...] Updated DateTime 12/24/2019 167.64 cm Laura England [facility] 12/24/2019 10:58:38 Date Recorded Body height Body mass index (BMI) Body weight Heart rate Oxygen saturation Oxygen saturation in Arterial blood by Pulse oximetry Systolic blood pressure Diastolic blood pressure Provider Name and Address Organization Details Last Updated DateTime 1 167.64 cm 35.5 kg/m2 96138.3 2 g 82 /min 98 % 98 [...] Updated DateTime 3 167.64 cm 37.9 kg/m2 960997. 21 g 87 /min 97 % 97 [...] Updated DateTime 4 167.64 cm 37.9 kg/m2 622731. 21 g 86 /min 97 % 97 % 140 mm[Hg] 78 mm[Hg] Patricia Johnston [facility] 4 09:00:59 Social History Question Answer Notes LastModified by Organizat ion Details LastModified Time Tobacco Smoking Status [facility]2018 14:55:05 What Was The Date [...] SNOMED-CT Code Diagnosis ICD10 Code Diagnosis Note [id number], [place] [address] 09/11/2018 15:11:20 09/11/2018 15:51:48 Acute conjunctivitis 50182140 H10.[id number], [place] [address] 09/28/2018 14:46:48 10/01/2018 08:23:34 Cough 38488512 R05 Psoriasis 5097058 L40.9 Migraine 37938616 G43.90 9 stopped w/menopaus e Screening procedure 2012 5006 Z13.9 Weight gain 0962590 R63. 5 working on weight loss, continue healthy exercise [id number] Justin Nelson [facility] [address], [place] [address] 05/03/2019 14:52:15 05/03/2019 15:21:14 Pre-surgery evaluation 311063279 Z01.818 pt is currently cleared for the proposed scleral surgery of her left eye as well as the follow up visit on 06-05-2019 for any further procedures required. [id number] Justin Nelson [facility] [address], [place] [address] 12/24/2019 10:43:23 12/24/2019 12:12:57 Headache 89294243 R51 possibly COVID-like symptoms will get her tested tomorrow and f/u with results from testing told to stay hydrated and management symptoms pt advised to self-quara ntine for length of her symptoms until she is 72 hours symptom free pt understand s this Diarrhea 74618277 R19.7 as above Fatigue 70905650 R53.83 as above [id number] Justin Nelson [facility] [address] [facility] [address] 10/30/2020 09:03:03 10/30/2020 12:17:21 Pruritic rash 75378608 L28.2 will trial script of pred and see if the rash is reduced Dyspnea 202926334 R06.00 will fu with XR to determine the integrity of her lungs [id number] Justin Nelson [facility] [address],[facility] [place] [address] 05/16/2023 14:18:58 05/16/2023 16:26:41 Wheezing 90852108 R06.2 will start on medrol and z-efrain Tinea corporis 24305561 B35.4 start on hibiclens and terbinafin e [id number] Justin Nelson [facility] [address] [facility] [place] [address] 08/05/2024 08:52:01 08/05/2024 09:37:50 Pain in right hand 0808754350 96020 M79.641 agreed to XR Adult heal th examination 945436221 Z00.00 BP is usually finewhite coat Asthma 145157480 J45.20 stable Onychomyco sis due to dermatophyte 168963998 B35.1 will set up with terbinafin e Psoriasis 4998620 L40.9 will set up with topical refill [id number] Justin Nelson [facility] [address] [facility], [place] [address] 11/12/2024 13:57:37 11/13/2024 08:31:48 Asthma 267078983 J45.20 trial alt, can't do steroid inhalers Exacerbati on of moderate persistent asthma 631010450 J45.41 declines abxcan't be on steroid due to glaucoma, pressure issues Health Concerns Section Related Observation LastModified by Organization Detai ls LastModified Time None Recorded Concern Status LastModified by Organization Details LastModified Time None Recorded Advance Directives Directive None Recorded Payers Encounter Date Sequence Insurance Name Policy Number Policy Gold Covered Member ID Gold Member ID Guarantor Name 12/24/2019 1 [facility] [id number] Brandie Tera [id number] Brandie Tera 10/30/2020 1 [facility] [id number] Brandie Tera [id number] Brandie Tera 05/16/2023 1 [facility] [id number] Brandie Tera [id number] Brandie Tera 08/05/2024 1 [facility] [id number] 6 Brandie Tera [id number] Brandie Tera 11/12/2024 1 [facility] [id number] Brandie Tera [id number] Brandie Tera Notes Date Note Type Note [...] pain and fatigue and diarrhea 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, [place], [address], [facility] 10/30/2020 13:52:05 3 text/html lab work f/u wheezing/bronchitis: continue with the albuterol inhalerwill set up with medrol and z-efrain as well for the patient negative COVID-19 patient has ringwormtopicals not perfectly effectivewill start on oral medicine and hibiclens will fu with patient after she completes course RAFAEL YANCEY [address] [facility], [place], [address], [facility] 05/16/2023 14:59:25 4 text/html [...] stable, no flare ups RAFAEL YANCEY [address] [place], [address], [facility] 08/05/2024 09:35:50 5 text/html c/o asthma exacerbation The patient is participating in this appointment via telemedicine communication with a phone call/video calling service ([employer])The patient consents to use of these platforms [...] was negative x 1 RAFAEL YANCEY [address] [place], [address], [facility] 11/12/2024 16:58:28 OBGyn Episode No OBEpisode recorded.
== END 2024-12-17 10:38 | disposition home or self-care (01) ==
LOC: HO.HOS 09:31
PROVIDERS: Visit Provider Orthopaedic Surgery
DX: S62.002A Unspecified fracture of navicular [scaphoid] bone of left wrist, initial encounter for closed fracture (principal); M79.641 Pain in right hand
CPT/HCPCS: 99213

== ENCOUNTER → 2024-12-17 09:33 | Outpatient (BNV) | payer OTHER, SELFPAY | PROVIDERS: Visit Provider Radiology Diagnostic Radiology | DX: S62.015A Nondisplaced fracture of distal pole of navicular [scaphoid] bone of left wrist, initial encounter for closed fracture (principal) | CPT/HCPCS: 73110 ==

== ENCOUNTER 2024-12-17 10:06 | Outpatient (REF) | payer OTHER, SELFPAY ==
--- NOTE | ~2024-12-17 | XR_ITS ---
EXAMINATION: XR WRIST, LEFT CLINICAL INFORMATION: M25.532 - Pain in left wrist COMPARISON: November 12, 2024. TECHNIQUE: PA, lateral, and oblique views of the left wrist. Scaphoid projection. FINDINGS: Transversely oriented cortical irregularity/lucency through the mid segment of the scaphoid. No gross malalignment. Distal radius and ulna are intact. Normal alignment of the carpal bones. Metacarpals are intact. XR/XR wrist LT w scaphoid IMPRESSION: Nondisplaced fracture, scaphoid. Positive exam. Electronically signed by: Heber Ulloa MD 12/17/2024 10:10 AM EDT
--- OUTSIDE RECORDS SUMMARY | 2024-12-18 11:04 | XMS_ITS | Data Portability ---
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 Procedures None recorded. Surgeries None recorded. Imaging XR, hand, 3 or more view 2023 024 [facility], [address] [place], [address], 08/05/2024 10:45:13 XR, chest, 2 view 2020 021 [facility] (Imaging), [address] [place], [address], 10/30/2020 12:17:21 Medication Orders benzonata te 200 mg capsule 2024 025 [facility] #[id number], [address], [place], [phone], 11/12/2024 16:55:39 ipratropi um bromide 17 mcg/actua tion HFA aerosol inhaler 2024 025 [facility] #[id number], [address], [place], [phone], 11/12/2024 16:55:40 terbinafi ne HCl 250 mg tablet 2023 024 KAYODE Not available 08/05/2024 09:20:49 betametha sone dipropion ate 0.05 % lotion 2023 024 KAYODE Not available 08/05/2024 09:34:47 Hibiclens 4 % topical liquid 2022 023 [facility] #[id number], [address], [place], [phone], 11/22/2023 11:49:38 terbinafi ne HCl 250 mg tablet 2022 023 [facility] #36608, [address], [place], [phone], 05/23/2023 10:21:22 Medrol (Efrain) 4 mg tablets in a dose pack 2022 023 [facility] #19059, [address], [place], [phone], 07/11/2023 08:42:37 Zithromax Z-Efrain 250 mg tablet 2022 023 [facility] #36767, [address], [place], [phone], 07/11/2023 08:42:56 prednison e 10 mg tablet 2020 021 [facility] #65939, [address], [place], [id number], 07/11/2023 08:42:41 Patient TargetsNo targets recorded. Patient InstructionsNo instructions recorded. Reason for Referral None Reported. Results Created Date Observation Date Name Description Value Unit Range Abnormal Flag Note LastModifiedBy Organization Detail LastModifiedTime 10/31/19 21 10/30/2020 XR, chest , 2 view No observ ation record ed. [email or web address] [facility] (Medical Records) [address] [place] [address], [address], 10/30/2020 13:25:20 07/10/20 23 07/05/2023 XR, chest , 2 view No observ ation record ed. [facility] (Medical Records) [address] [place], [address], 07/11/2023 10:39:02 08/05/20 24 08/05/2024 XR, hand, 3 or more view No observ ation record ed. [facility] (Medical Records) [address] [place], [address], 08/09/2024 13:16:52 08/15/19 25 08/15/2024 CT, hand, w/o contr ast No observ ation record ed. [email or web address] [facility] [place] [address] [address], [place], [address], 08/16/2024 11:11:06 09/11/19 25 09/11/2024 XR, wrist No observ ation record ed. [email or web address] [facility] [place] [address] [facility] [address], [place], [address], 09/11/2024 13:46:12 09/17/19 25 09/17/2024 XR, wrist No observ ation record ed. [facility] (Medical Records) [address] [facility], [place], [address], 09/17/2024 09:30:14 Result Notes None recorded. Problems Name Problem SNOMED Code Status Onset Date Resolution Date Notes Provider Name and Address Organization Details Recorded Time Temporoma ndibular joint disorder 59208864 Active 2018 Not Available [facility] 4 09:44:14 Migraine 54207880 Active 2018 Not Available [facility] 4 09:44:14 Psoriasis 5846241 Active 2018 Not Available [facility] 4 09:44:14 COVID-19 340901056 Active 2020 1 Not Available [facility] 4 09:44:14 Wheezing 43271128 Active 2022 Not Available [facility] 4 09:44:14 Tinea corporis 70549324 Active 2022 Not Available [facility] 4 09:44:14 Asthma 427432969 Active 2022 Not Available [facility] 4 09:44:14 Acute exacerbat ion of chronic obstructi ve pulmonary disease 303343335 Active 2022 Not Available [facility] 4 09:44:14 Chronic bronchiti s 47902081 Active 2022 Not Available [facility] 4 09:44:14 Cough 59996152 Active 2022 Not Available [facility] 4 09:44:14 Chronic obstructi ve pulmonary disease 41738229 Active 2022 Not Available [facility] 4 09:44:14 Onychomyc osis due to dermatoph yte 512552516 Active 2023 Not Available [facility] 4 09:44:14 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 80147131 Active 2023 RAFAEL YANCEY [address] [place], [address], [facility] [place] 4 10:48:24 Pain in right hand 040217506250 109 Active 2023 RAFAEL YANCEY [address] [place], [address], [facility] [place] 4 09:09:36 Exacerbat ion of moderate persisten t asthma 690864020 Active 2024 RAFAEL YANCEY [address] [place] [address], [address], [facility] [place] 5 16:46:10 Notes:Some problems listed i n Documents: #[id number], #[id number] could not be added to this patient's chart. Please review these documents and add these problems to the patient's chart manually as needed. Problem Notes None recorded. Procedures Surgical History None recorded. Imaging Results Imaging Date Name Status LastModified by Beronica andre Details LastModified Time 10/30/2020 XR, chest, 2 view completed [email or web address] [place] [address] (Medical Records) [address] [place] [address], [address], 10/30/2020 13:25:20 07/05/2023 XR, chest, 2 view completed [facility] (Medical Records) [address] [place], [address], 07/11/2023 10:39:02 08/05/2024 XR, hand, 3 or more view completed [facility] (Medical Records) [address] [place] [address], [address], 08/09/2024 13:16:52 08/15/2024 CT, hand, w/o contrast completed [email or web address] [facility] [place] [address], [address], 08/16/2024 11:11:06 09/11/2024 XR, wrist completed [email or web address] [facility] [place] [address] [facility] [address], [place], [address], 09/11/2024 13:46:12 09/17/2024 XR, wrist completed [facility] (Medical Records) [address] [place], [address], 09/17/2024 09:30:14 Procedure Notes None recorded. Medical Equipment None Reported. Allergies Allergen ID Allergen Name Allergen Category Reaction Reaction Severity Criticality Documentation Date Start Date Code Code System Note Provider Name and Address Organization Details Recorded Time 2788 codeine medicatio n Not available Not available Not available 09/11/2018 2670 RxNorm Laura ferrer [facility] 9 15:18:20 2831 morphine medicatio n Not available Not available Not available 09/26/2018 7052 RxNorm Kiah Kj ferrer [facility] 9 08:36:34 Medications [...] Updated DateTime 12/24/2019 167.64 cm Laura England [facility] 12/24/2019 10:58:38 Date Recorded Body height Body mass index (BMI) Body weight Heart rate Oxygen saturation Oxygen saturation in Arterial blood by Pulse oximetry Systolic blood pressure Diastolic blood pressure Provider Name and Address Organization Details Last Updated DateTime 1 167.64 cm 35.5 kg/m2 82953.3 2 g 82 /min 98 % 98 % 126 mm[Hg] 70 mm[Hg] Aliyah Alcantara [facility] 1 09:21:56 Date Recorded Body height Body mass index (BMI) Body weight Heart rate Oxygen saturation Oxygen saturation in Arterial blood by Pulse oximetry Systolic blood pressure Diastolic blood pressure Provider Name and Address Organization Details Last Updated DateTime 3 167.64 cm 37.9 kg/m2 632712. 21 g 87 /min 97 % 97 % 134 mm[Hg] 76 mm[Hg] Ayesha De La Garza [facility] 3 14:37:09 Date Recorded Body height Body mass index (BMI) Body weight Heart rate Oxygen saturation Oxygen saturation in Arterial blood by Pulse oximetry Systolic blood pressure Diastolic blood pressure Provider Name and Address Organization Details Last Updated DateTime 4 167.64 cm 37.9 kg/m2 579762. 21 g 86 /min 97 % 97 % 140 mm[Hg] 78 mm[Hg] Patricia Johnston [facility] 4 09:00:59 Social History Question Answer Notes LastModified by Organizat ion Details LastModified Time Tobacco Smoking Status [facility] 14:55:05 What Was The Date Of Your Most Recent Tobacco Screening? 08/05/2024 [email or web address] Information not available 08/05/2024 Sex: Unknown Functional Status None recorded. Mental Status None recorded. Family History Nothing Reported. Medical History No medical history recorded. Gynecological HistoryNo gynecological history recorded. Obstetrics History GPAL:G 0 P 0 0 0 0 Past Encounters Encounter ID Performer Location Encounter Start Date Encounter Closed Date Diagnosis/Indication Diagnosis SNOMED-CT Code Diagnosis ICD10 Code Diagnosis Note [id number], [place] [address] 09/11/2018 15:11:20 09/11/2018 15:51:48 Acute conjunctivitis 23010413 H10.[id number], [place] [address] 09/28/2018 14:46:48 10/01/2018 08:23:34 Cough 52982777 R05 Psoriasis 6642456 L40.9 Migraine 05862849 G43.90 9 stopped w/menopaus e Screening procedure 2012 5006 Z13.9 Weight gain 2385982 R63. 5 working on weight loss, continue healthy exercise [id number] Justin Nelson [facility] [address], [place] [address] 05/03/2019 14:52:15 05/03/2019 15:21:14 Pre-surgery evaluation 457917103 Z01.818 pt is currently cleared for the proposed scleral surgery of her left eye as well as the follow up visit on 06-05-2019 for any further procedures required. [id number] Justin Nelson [facility] [address], [place] [address] 12/24/2019 10:43:23 12/24/2019 12:12:57 Headache 45362527 R51 possibly COVID-like symptoms will get her tested tomorrow and f/u with results from testing told to stay hydrated and management symptoms pt advised to self-quara ntine for length of her symptoms until she is 72 hours symptom free pt understand s this Diarrhea 44276676 R19.7 as above Fatigue 37970132 R53.83 as above [id number] Justin Nelson [facility] [address] [facility] [address] 10/30/2020 09:03:03 10/30/2020 12:17:21 Pruritic rash 12213308 L28.2 will trial script of pred and see if the rash is reduced Dyspnea 479686592 R06.00 will fu with XR to determine the integrity of her lungs [id number] Justin Nelson [facility] [address] [facility] [address] 05/16/2023 14:18:58 05/16/2023 16:26:41 Wheezing 23393760 R06.2 will start on medrol and z-efrain Tinea corporis 90692586 B35.4 start on hibiclens and terbinafin e [id number] Justin Nelson [facility] [address] [facility] [address] 08/05/2024 08:52:01 08/05/2024 09:37:50 Pain in right hand 6299892545 17564 M79.641 agreed to XR Adult heal th examination 421232625 Z00.00 BP is usually finewhite coat Asthma 671197181 J45.20 stable Onychomyco sis due to dermatophyte 522868515 B35.1 will set up with terbinafin e Psoriasis 7454485 L40.9 will set up with topical refill [id number] Justin Nelson [facility] [address] [facility], [place] [address] 11/12/2024 13:57:37 11/13/2024 08:31:48 Asthma 507352859 J45.20 trial alt, can't do steroid inhalers Exacerbati on of moderate persistent asthma 435273764 J45.41 declines abxcan't be on steroid due to glaucoma, pressure issues Health Concerns Section Related Observation LastModified by Organization Detai ls LastModified Time None Recorded Concern Status LastModified by Organization Details LastModified Time None Recorded Advance Directives Directive None Recorded Payers Encounter Date Sequence Insurance Name Policy Number Policy Gold Covered Member ID Gold Member ID Guarantor Name 12/24/2019 1 [facility] [id number] Brandie Tera [id number] Brandie Tera 10/30/2020 1 [employer] [facility] [id number] Brandie Tera [id number] Brandie Tera 05/16/2023 1 [employer] [facility] [id number] Brandie Tera [id number] Brandie Tera 08/05/2024 1 [employer] [facility] [id number] Brandie Tera [id number] Brandie Tera 11/12/2024 1 [employer] [facility] [id number] Brandie Tera [id number] Brandie Tera Notes Date Note Type Note [...] pain and fatigue and diarrhea 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) > constantly exposed to people with her [...] have the chills on Monday RAFAEL YANCEY [address] [place] [address], [place], [address], [facility] [place] 12/24/2019 11:43:47 1 text/html c/o [...] of the left side RAFAEL YANCEY [address] [facility], [place], [address], [facility] [place] 10/30/2020 13:52:05 3 text/html lab work f/u wheezing/bronchitis: continue with the albuterol inhalerwill set up with medrol and z-efrain as well for the patient negative COVID-19 patient has ringwormtopicals not perfectly effectivewill start on oral medicine and hibiclens will fu with patient after she completes course RAFAEL YANCEY [address] [facility], [place], [address], [facility] [place] 05/16/2023 14:59:25 4 text/html Annual [...] stable, no flare ups RAFAEL YANCEY [address] [place], [address], [facility] [place] 08/05/2024 09:35:50 5 text/html c/o asthma exacerbation The patient is participating in this appointment via telemedicine communication with a phone call/video calling service ([employer])The patient consents to use of these platforms [...] was negative x 1 RAFAEL YANCEY [address] [place], [address], [facility] [place] 11/12/2024 16:58:28 OBGyn Episode No OBEpisode recorded.
== END 2024-12-17 10:07 | disposition home or self-care (01) ==
LOC: HO.HOSX 10:06
PROVIDERS: Visit Provider Orthopaedic Surgery
DX: M25.532 Pain in left wrist (principal)
CPT/HCPCS: 73110

== ENCOUNTER 2025-01-21 09:07 | Outpatient (REF) | payer OTHER, SELFPAY ==
--- OUTSIDE RECORDS SUMMARY | 2025-01-22 09:49 | XMS_ITS | Data Portability ---
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 Procedures None recorded. Surgeries None recorded. Imaging XR, hand, 3 or more view 2023 024 [facility] Central Scheduling, [address] [facility] [place], [address], 08/05/2024 10:45:13 XR, chest, 2 view 2020 021 [facility] (Imaging), [address] [place], [address], 10/30/2020 12:17:21 Medication Orders benzonata te 200 mg capsule 2024 025 [facility]70984, [address], [place], [id number], 11/12/2024 16:55:39 ipratropi um bromide 17 mcg/actua tion HFA aerosol inhaler 2024 025 [facility] #54361, [address], [place], [id number], 11/12/2024 16:55:40 terbinafi ne HCl 250 mg tablet 2023 024 KAYODE Not available 08/05/2024 09:20:49 betametha sone dipropion ate 0.05 % lotion 2023 024 KAYODE Not available 08/05/2024 09:34:47 Hibiclens 4 % topical liquid 2022 023 [facility] #04664, [address], [place], [id number], 11/22/2023 11:49:38 terbinafi ne HCl 250 mg tablet 2022 023 [facility] #92738, [address], [place], [id number], 05/23/2023 10:21:22 Medrol (Efrain) 4 mg tablets in a dose pack 2022 023 [facility] #38825, [address], [place], [id number], 07/11/2023 08:42:37 Zithromax Z-Efrain 250 mg tablet 2022 023 [facility] #97131, [address], [place], [id number], 07/11/2023 08:42:56 prednison e 10 mg tablet 2020 021 [facility] #23401, [address], [place], [id number], 07/11/2023 08:42:41 Patient TargetsNo targets recorded. Patient InstructionsNo instructions recorded. Reason for Referral None Reported. Results Created Date Observation Date Name Description Value Unit Range Abnormal Flag Note LastModifiedBy Organization Detail LastModifiedTime 10/31/19 21 10/30/2020 XR, chest , 2 view No observ ation record ed. [email or web address] [facility] (Medical Records) [address] [place] [address], [address], 10/30/2020 13:25:20 07/10/20 23 07/05/2023 XR, chest , 2 view No observ ation record ed. [facility] (Medical Records) [address] [place], [address], 07/11/2023 10:39:02 08/05/20 24 08/05/2024 XR, hand, 3 or more view No observ ation record ed. [facility] (Medical Records) [address] [place], [address], 08/09/2024 13:16:52 08/15/19 25 08/15/2024 CT, hand, w/o contr ast No observ ation record ed. [email or web address] [facility] [address] [address], [place], [address], 08/16/2024 11:11:06 02/12/24 2409/11/2024 XR, wrist No observ ation record ed. [email or web address] [facility] [address] [facility] [address], [place], [address], 09/11/2024 13:46:12 09/17/19 25 09/17/2024 XR, wrist No observ ation record ed. [facility] (Medical Records) [address] [facility], [place], [address], 09/17/2024 09:30:14 Result Notes None recorded. Problems Name Problem SNOMED Code Status Onset Date Resolution Date Notes Provider Name and Address Organization Details Recorded Time Temporoma ndibular joint disorder 51890241 Active 2018 Not Available [facility] 4 09:44:14 Migraine 46016924 Active 2018 Not Available [facility] 4 09:44:14 Psoriasis 6142740 Active 2018 Not Available [facility] 4 09:44:14 COVID-19 865250766 Active 2020 1 Not Available [facility] 4 09:44:14 Wheezing 51965817 Active 2022 Not Available [facility] 4 09:44:14 Tinea corporis 27748100 Active 2022 Not Available [facility] 4 09:44:14 Asthma 180588435 Active 2022 Not Available [facility] 4 09:44:14 Acute exacerbat ion of chronic obstructi ve pulmonary disease 430102414 Active 2022 Not Available [facility] 4 09:44:14 Chronic bronchiti s 18666033 Active 2022 Not Available [facility] 4 09:44:14 Cough 16201456 Active 2022 Not Available [facility] 4 09:44:14 Chronic obstructi ve pulmonary disease 60063020 Active 2022 Not Available [facility] 4 09:44:14 Onychomyc osis due to dermatoph yte 715240636 Active 2023 Not Available [facility] 4 09:44:14 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 nism 75182705 Active 2023 RAFAEL YANCEY [address] [place] [address], [address], [facility] 4 10:48:24 Pain in right hand 297716785304 109 Active 2023 RAFAEL YANCEY [address] [place] [address], [address], [facility] 4 09:09:36 Exacerbat ion of moderate persisten t asthma 347656253 Active 2024 RAFAEL YANCEY [address] [place] [address], [address], [facility] 5 16:46:10 Notes:Some problems listed i n Documents: #[id number], #[id number] could not be added to this patient's [...] available Not available 09/11/2018 2670 RxNorm Laura Bakerkali [facility] 9 15:18:20 2831 morphine medicatio n Not available Not available Not available 09/26/2018 7052 RxNorm Kiah Ferrishilda [facility] 9 08:36:34 Medications Name Sig Start Date [...] t Available Vitals Date Recorded Body height Body mass index (BMI) Body weight Heart rate Oxygen saturation Oxygen saturation in Arterial blood by Pulse oximetry Systolic blood pressure Diastolic blood pressure Provider Name and Address Organization Details Last Updated DateTime 1 167.64 cm 35.5 kg/m2 62268.3 2 g 82 /min 98 % 98 % 126 mm[Hg] 70 mm[Hg] [facility] 1 09:21:56 Date Recorded Body height Provider Name an d Address Organization Details Last Updated DateTime 12/24/2019 167.64 cm [facility] 12/24/2019 10:58:38 Date Recorded Body height Body mass index (BMI) Body weight Heart rate Oxygen saturation Oxygen saturation in Arterial blood by Pulse oximetry Systolic blood pressure Diastolic blood pressure Provider Name and Address Organization Details Last Updated DateTime 3 167.64 cm 37.9 kg/m2 962989. 21 g 87 /min 97 % 97 % 134 mm[Hg] 76 mm[Hg] Ayesha Holli [facility] 3 14:37:09 Date Recorded Body height Body mass index (BMI) Body weight Heart rate Oxygen saturation Oxygen saturation in Arterial blood by Pulse oximetry Systolic blood pressure Diastolic blood pressure Provider Name and Address Organization Details Last Updated DateTime 4 167.64 cm 37.9 kg/m2 336035. 21 g 86 /min 97 % 97 % 140 mm[Hg] 78 mm[Hg] Patriciapreston Johsnton [facility] 4 09:00:59 Social History Question Answer Notes LastModified by Organizat ion Details LastModified Time Tobacco Smoking Status [facility] 14:55:05 What Was The Date Of Your Most Recent Tobacco Screening? 08/05/2024 [email or web address] Information not available 08/05/2024 Sex: Unknown Functional Status None recorded. Mental Status None recorded. Family History Nothing Reported. Medical History No medical history recorded. Gynecological HistoryNo gynecological history recorded. Obstetrics History GPAL:G 0 P 0 0 0 0 Past Encounters Encounter ID Performer Location Encounter Start Date Encounter Closed Date Diagnosis/Indication Diagnosis SNOMED-CT Code Diagnosis ICD10 Code Diagnosis Note [id number] [facility] [address] [facility],[place] [address] 09/11/2018 15:11:20 09/11/2018 15:51:48 Acute conjunctivitis 90623488 H10.[id number] [facility] [address] [facility],[place] [address] 09/28/2018 14:46:48 10/01/2018 08:23:34 Cough 16206645 R05 Psoriasis 8841445 L40.9 Migraine 20455211 G43.90 9 stopped w/menopaus e Screening procedure 2012 5006 Z13.9 Weight gain 9678159 R63. 5 working on weight loss, continue healthy exercise [id number] [facility] Internal [address],[place] [address] 05/03/2019 14:52:15 05/03/2019 15:21:14 Pre-surgery evaluation 639088924 Z01.818 pt is currently cleared for the proposed scleral surgery of her left eye as well as the follow up visit on 06-05-2019 for any further procedures required. [id number] [facility] Internal [address],[place] [address] 12/24/2019 10:43:23 12/24/2019 12:12:57 Headache 78414443 R51 possibly COVID-like symptoms will get her tested tomorrow and f/u with results from testing told to stay hydrated and management symptoms pt advised to self-quara ntine for length of her symptoms until she is 72 hours symptom free pt understand s this Diarrhea 67784837 R19.7 as above Fatigue 76119273 R53.83 as above [id number] [facility] Internal [address],[place] [address] 10/30/2020 09:03:03 10/30/2020 12:17:21 Pruritic rash 92156236 L28.2 will trial script of pred and see if the rash is reduced Dyspnea 614530452 R06.00 will fu with XR to determine the integrity of her lungs [id number] Justin Nelson [address],[place] [address] 05/16/2023 14:18:58 05/16/2023 16:26:41 Wheezing 73283657 R06.2 will start on medrol and z-efrain Tinea corporis 25710864 B35.4 start on hibiclens and terbinafin e [id number] Justin Nelson [facility] Internal [address], [place] [address] 08/05/2024 08:52:01 08/05/2024 09:37:50 Pain in right hand 1674481663 96947 M79.641 agreed to XR Adult heal th examination 646662081 Z00.00 BP is usually finewhite coat Asthma 724613837 J45.20 stable Onychomyco sis due to dermatophyte 123392117 B35.1 will set up with terbinafin e Psoriasis 3967275 L40.9 will set up with topical refill [id number] Justin Nelson DO [facility] Internal [facility] [address] [facility],[place] [address] 11/12/2024 13:57:37 11/13/2024 08:31:48 Asthma 698974667 J45.20 trial alt, can't do steroid inhalers Exacerbati on of moderate persistent asthma 153710023 J45.41 declines abxcan't be on steroid due to glaucoma, pressure issues Health Concerns Section Related Observation LastModified by Organization Detai ls LastModified Time None Recorded Concern Status LastModified by Organization Details LastModified Time None Recorded Advance Directives Directive None Recorded Payers Insurance Date Sequence Insurance Name Policy Number Policy Gold Covered Member ID Gold Member ID Guarantor Name 11/12/[address] [place] [address] [id number] Brandie Haley [id number] Brandie Haley Notes Date Note Type Note [...] pain and fatigue and diarrhea 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 with her [...] the chills on Monday RAFAEL YANCEY [address] [place], [address], [facility] 12/24/2019 11:43:47 1 text/html [...] of the left side RAFAEL YANCEY [address] [facility], [place], [address], [facility] 10/30/2020 13:52:05 3 text/html lab work f/u wheezing/bronchitis: continue with the albuterol inhalerwill set up with medrol and z-efrain as well for the patient negative COVID-19 patient has ringwormtopicals not perfectly effectivewill start on oral medicine and hibiclens will fu with patient after she completes course RAFAEL YANCEY [address] [facility], [place], [address], [facility] 05/16/2023 14:59:25 4 text/html [...] stable, no flare ups RAFAEL YANCEY [address] [place], [address], [facility] 08/05/2024 09:35:50 5 text/html c/o asthma exacerbation The patient is participating in this appointment via telemedicine communication with a phone call/video calling service (Clip)The patient consents to use of these platforms [...] was negative x 1 RAFAEL YANCEY [address] [facility], [place], [address], [facility] 11/12/2024 16:58:28 OBGyn Episode No OBEpisode recorded.
== END 2025-01-21 09:08 | disposition home or self-care (01) ==
LOC: HO.HOSX 09:07
PROVIDERS: Visit Provider Orthopaedic Surgery
DX: Z13.89 Encounter for screening for other disorder (principal)

== ENCOUNTER 2025-01-22 14:39 | Outpatient (REF) | payer OTHER, SELFPAY ==
--- NOTE | ~2025-01-22 | XR_ITS ---
CLINICAL HISTORY: M25.532 - Pain in left wrist 4 view left wrist Comparison: None provided Findings: No fractures or dislocations. No significant arthritic change or erosions. No radiopaque foreign body. IMPRESSION: 1. No acute findings. This document has been electronically signed by: Carlos Schmidt MD on 01/23/2025 10:11:56
== END 2025-01-22 14:40 | disposition home or self-care (01) ==
LOC: HO.XRAY 14:39
PROVIDERS: PCP Internal Medicine; Visit Provider Orthopaedic Surgery
DX: M25.532 Pain in left wrist (principal)
CPT/HCPCS: 73110

== ENCOUNTER → 2025-01-22 14:42 | Outpatient (BNV) | payer OTHER, SELFPAY | PROVIDERS: PCP Internal Medicine; Visit Provider Radiology Vascular & Interventional Radiology | DX: M25.532 Pain in left wrist (principal) | CPT/HCPCS: 73110 ==

== ENCOUNTER 2025-01-22 15:00 | Outpatient (AMB) | payer OTHER, SELFPAY ==
--- NOTE | 2025-01-22 15:15 | A.OFFVIS_ITS ---
Vital Signs 01/22/25 15:33 Height 5 ft 6 in Intake Visit Reasons: O/V hand Fracture of scaphoid of left wrist Intake Note: Brandie 58 year old female who presents today for her follow up visit for a ROM check for his left scaphoid fracture, S/P fall, DOI 09/11/24. Xrays updated in office. States she is having soreness and aches in her thumb. Reports she has not been doing her left hand to do any strenuous duties. Allergies morphine (MORPHINE) Allergy (Unknown, Verified 01/22/25 15:35) VOMITING Codeine Phosphate Allergy (Unknown, Uncoded 01/22/25 15:35) Unknown HPI HPI O/V hand Fracture of scaphoid of left wrist: Details: Brandie is a 58 year old right hand dominant woman who returns for her left scaphoid fracture, S/P fall, DOI: 09/11/24. She has been seen multiple times for cast changes, including 09/26/24, 10/24/24, 10/28/24, & 10/29/24. She says she is doing better. She still has some pain at the base of her thumb & base of her palm when applying pressure. She also complains of right hand pain & weakness, particularly in the middle & ring fingers. 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 She feels that she is perfectly capable to perform all of her duties at work. She denies any numbness or tingling. She denies smoking or vaping of any kind. 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 Physical Exam Const General: no acute distress and alert Orientation/consciousness: patient oriented x3 Neuro General: patient oriented x3 Extrem Other: Evaluation of Left Upper Extremity: The patient is alert, oriented, and in no acute distress Neuro: Median, Ulnar, Radial nerves motor and sensory intact and sensation is normal to the tips of all digits Vascular: Cap refill brisk ROM: She can make a fist and extend all her digits No snuffbox tenderness today, and no tenderness over the proximal pole of the scaphoid No scaphoid tubercle tenderness Mild tenderness over the basal joint Radiographs: 3 views of the left wrist, plus a scaphoid view, were taken and viewed by me today in clinic. Scaphoid waist fracture non-displaced. I am possibly seeing the same scaphoid line on the scaphoid view, but there may be some bony healing. Psych Appearance: grossly normal Affect: normal affect Attitude: cooperative Assessment & Plan Assessment & Plan (1) Fracture of scaphoid of left wrist: Code(s): S62.002A - Unspecified fracture of navicular [scaphoid] bone of left wrist, initial encounter for closed fracture Category: Medical (2) Right hand pain: Code(s): M79.641 - Pain in right hand Category: Medical Plan Assessment & Plan: 1. Left scaphoid waist fracture, nondisplaced DOI: 09/11/24 S/P fall I educated her about this condition and I showed her the today's x-ray. She assures me that she is being careful with her hand and not doing too much. She very much would like to remain in a splint I will allow her to continue to wear her velcro wrist splint, like a cast except for showering, until her next appointment. She can also remove this when at rest to work on ROM exercises I discussed activity modifications, she is to lift nothing heavier than a cellphone for the next 4 weeks She will perform finger & wrist ROM exercises at home, out of her splint. 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 She is leaving for a vacation in [place] on 01/25/25. I ordered a wrist CT to assess for bony healing. She will follow up when completed for review 2. Right hand pain & weakness Onset June 2024 She will follow up in 4 weeks to discuss this, when her left wrist has recovered. Scribed for Radha Caballero MD by Morales Mota, director medical economics, on 01/22/25 at 3:20 PM, EST. Orders: Orders CT wrist LT wo IV con Today S62.002A - Unspecified fracture of navicular [scaphoid] bone of left wrist, initial encounter for closed fracture XR wrist LT w scaphoid Today M25.532 - Pain in left wrist Coding Level of Care Code Est Pt Level 3 (10107) Diagnoses Fracture of scaphoid of left wrist S62.002A Right hand pain M79.645
== END 2025-01-22 15:47 | disposition home or self-care (01) ==
LOC: HO.HOS 15:01
PROVIDERS: Visit Provider Orthopaedic Surgery
DX: S62.002A Unspecified fracture of navicular [scaphoid] bone of left wrist, initial encounter for closed fracture (principal); M79.641 Pain in right hand
CPT/HCPCS: 99213

== ENCOUNTER 2025-02-11 15:59 | Outpatient (REF) | payer OTHER, SELFPAY ==
--- OUTSIDE RECORDS SUMMARY | 2025-02-11 11:09 | XMS_ITS | Data Portability ---
Author Organization [facility], [facility] Address [address] [place] [address] Care Team Providers Care Roll Tension Tester Name Role Phone VALENCIA ARROYO Primary Care Provider Assessment No assessment recorded. Plan of Treatment Reminders Order Date Submit Date Provider Last Modified By Organization Details Last Modified Time Details Appointments RECHECK 15 2024 01:00P Alexis Gilbert MD Not available Not available Not available Lab None recorded. Referral None recorded. Procedures None recorded. Surgeries None recorded. 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, [facility] [address], [place], [address], 01/31/2025 12:07:37 CT, wrist, w/o contrast - lt wrist eval scaphoid 2024 025 [email or web address] [facility] [place], [address], [place], [address], 01/31/2025 12:07:37 Medication Orders None recorded. Patient TargetsNo targets recorded. Patient Instructions Encounter Date Encounter Id Patient Instructions Last Modified By Organization Details Last Modified Time 01/24/2025 [id number] application of cast, short arm cast* - sac lt wrist waterproof, please give pt code, rm 117 [email or web address] Not available 01/24/2025 14:49:03 Reason for Referral None Reported. Results Created Date Observation Date Name Description Value Unit Range Abnormal Flag Note LastModifiedBy Organization Detail LastModifiedTime 01/25/20 25 01/24/2025 XR, wrist , 3 or more view http:/ [email or web address] ?Encry pted=s hAaTro YD8dLq bEUv6g %2BXZw aYqtaq 0bqfl% 2Fg9IQ a4ajBk vP9nXo QUaueC m3YtLR FvZlgJ JJ8mAn HZtai3 0p2516 AC0Kla HqBVKK jKiQtr MwF INTERFACE [facility] Office [address] [facility] [address], [place], [address], 01/24/2025 13:58:44 01/25/2001/24/2025 XR, wrist , 3 or more view http:/ [email or web address] ?Encry pted=s [place] YD8dLq bEUv6g %2BXZw aYqtaq 0bqfl% 2Fg9IQ a4ajBk vP9nXo QUaueC m3YtLR FvZlgJ JJ8mAn HZtai3 4r8246 AC0Kla HqBVKK jKiQtr MwF INTERFACE [facility] [address] [facility] [address], [place], [address], 01/24/2025 13:58:46 Result Notes Documentation Provider Name and Address Organization Details Recorded Time Xr, Wrist, 3 Or More View : [email or web address]? Encrypted=mxJvIryKP2dJljG Uv6g%9CMLmsJflyj8yfpt%2Fg 3QRs5nuPbfS0qXiMBhpcVn5Ho KERsRhdFDG9xTiIIeqd44k096 2GR8UeqBdVQTHvSiZqiJoO Not Available [facility] 01/24/2025 13:58: 45 Xr, Wrist, 3 Or More View : [email or web address]? Encrypted=ycRhIkrZL4mFseS Uv6g%6DOOezDnsit8dhfb%2Fg 0EWj6jlXdqR9fZrCWudaYy4Tw QKOzFpxUTI6tBsBFrnn09s956 9HS0KpfGsZOCOfSoXcrOtT Not Available [facility] 01/24/2025 13:58: 46 Medical Equipment None Reported. Allergies Allergen ID Allergen Name Allergen Category Reaction Reaction Severity Criticality Documentation Date Start Date Code Code System Note Provider Name and Address Organization Details Recorded Time 891976 tree nut food Not available Not available Not available 01/24/2025 08308 UNK MIRTHA ferrer [facility] 13:53:52 64211 morphine sulfate medicatio n Not available Not available Not available 10/09/20232021 03535 RxNorm Not Available [facility] 12:58:03 28511 codeine medicatio n Not available Not available Not available 10/09/20232021 2670 RxNorm Not Available [facility] 12:58:03 Medications Name Sig Start Date Stop Date Status Note LastModified by Organization Details LastModified Time benzonatate 200 mg capsule TAKE 1 CAPSULE BY MOUTH THREE TIMES DAILY FOR 14 DAYS NEEDED active Not Available Not Available No t Available terbinafine HCl 250 mg tablet TAKE 1 TABLET BY MOUTH EVERY DAY active Not Available Not Available No t Available albuterol sulfate HFA 90 mcg/actuatio n aerosol inhaler INHALE 2 PUFFS BY MOUTH EVERY 4 HOURS active Not Available Not Available No t Available betamethason e dipropionate 0.05 % lotion APPLY FEW DROPS TOPICALLY TO THE AFFECTED AREA TWICE DAILY IN THE MORNING AND AT BEDTIME. RUB IN GENTLY AND COMPLETELY active Not Available Not Available N ot Available Atrovent HFA 17 mcg/actuatio n aerosol inhaler INHALE 2 PUFFS BY MOUTH FOUR TIMES DAILY NEEDED active Not Available Not Available No t Available Vitals Date Recorded Body height Provider Name an d Address Organization Details Last Updated DateTime 01/24/2025 167.64 cm MIRTHA YBARRA [facility] 01/24/2025 13:53:26 Social History None recorded. Functional Status None recorded. Mental Status None recorded. Family History Nothing Reported. Medical History No medical history recorded. Gynecological HistoryNo gynecological history recorded. Obstetrics History GPAL:G 0 P 0 0 0 0 Past Encounters Encounter ID Performer Location Encounter Start Date Encounter Closed Date Diagnosis/Indication Diagnosis SNOMED-CT Code Diagnosis ICD10 Code Diagnosis Note [id number] MD KIRSTIE Blanca [address] [place] [address] 01/24/2025 13:35:28 01/31/2025 12:07:37 Pain of left wrist 0524796712 64823 M25.532 Closed fra cture of scaphoid bone of wrist 09528999 S62.025A Health Concerns Section Related Observation LastModified by Organization Detai ls LastModified Time None Recorded Concern Status LastModified by Organization Details LastModified Time None Recorded Advance Directives Directive None Recorded Payers Insurance Date Sequence Insurance Name Policy Number Policy Gold Covered Member ID Gold Member ID Guarantor Name 01/31/2025 1 [facility] [id number] Brandie Haley [id number] Brandie Haley OBGyn Episode No OBEpisode recorded.
--- OUTSIDE RECORDS SUMMARY | 2025-02-11 11:09 | XMS_ITS | Patient Health Record ---
Author Organization [facility] Address [address] [place] [id number] Care Team Providers Care Steel Manager Name Role Phone Justin Nelson Primary Care Provider Miguelito Sebastian [phone] Allergies Allergen (clinical drug ingredient) Drug/Non Drug Allergy documented on EMR Reaction Allergy Type Onset Date Status morphine Morphine Sulfate Unknown Drug Allergy Active codeine Codeine Sulfate Unknown Drug Allergy A ctive antibiotics (uncoded) Unknown Allergy Active adhesives (uncoded) Unknown Allergy Active Reason For Referral No Information Medications Medication SIG (Take, Route, Frequency, Duration) Notes Start Date End Date Status Loratadine Not-Takin g Multivitamin Not-Brandon ing Probiotic Daily Not- Taking Cinnamon Not-Taking Garlic Oil 1500 3 MG as directed Orally once a day Not-Taking Apple Cider Vinegar Not-Taking CoQ-10 Not-Taking Immunizations Vaccine Route Administration Date Status Comme nts Influenza Unknown 11/29/2018 Refused Social History Tobacco Use: Social History Observation Description Date Details (start date - stop date) Never Smoker NA - NA Tobacco Use/Smoking Question Answer Notes Patient is a nonsmoker Alcohol Screen Question Answer Notes Did you have a drink contain ing alcohol in the past year? Yes How often did you have a dri nk containing alcohol in the past year? Never (0 point) How many drinks did you have on a typical day when you were drinking in the past year? 1 or 2 drinks (0 point) How often did you have 6 or more drinks on one occasion in the past year? Never (0 point) Points 0 Interpretation Negative Section Notes: Nonsmoker; no alcohol Problems Problem Type SNOMED Code ICD Code Onset Dates Problem Status W/U Status Risk Notes Problem [id number] Elevated liver enzymes (R74.8) Active confirmed Plan Of Treatment No Information Insurance Providers Payer Name Payer Address Payer Phone Subscriber Number Group Number Insured Name Patient Relationship to Insured Coverage Start Date Coverage End Date [facility] [address] [place] [place] [phone] [id number] TALAMANTES Self - patient is the insured Medical (General) History Medical History History ICD Code Denies CO,DM,CVA,Lung disease,renal dise ase Surgical History Surgery Date(Month/Year) Cholecystectomy 1998
== END 2025-02-11 16:00 | disposition home or self-care (01) ==
LOC: HO.HOSX 15:59
PROVIDERS: Visit Provider Orthopaedic Surgery
DX: Z13.89 Encounter for screening for other disorder (principal)

== ENCOUNTER 2025-04-22 10:12 | Outpatient (AMB) | payer OTHER, SELFPAY ==
--- NOTE | 2025-04-22 10:22 | MHC.OFFVIS ---
Vital Signs 04/22/25 10:22 Height 5 ft 6 in Intake Visit Reasons: New Prob LT wrist cyst Intake Note: Brandie 59 yr old -right hand dominant female presents today for a new problem visit for her left wrist ganglion cyst. Patient was last seen with DR Caballero for her left wrist scaphoid fracture. Patient explains she was discharge from O.T with full ROM and was doing fine. Patient states a about 1-2 weeks ago she felt a pop in left hand. He went back to OT and they suggested her to call the orthopedics department to be seen. Currently patient states she had a recent MRI of her left wrist and doctor had concerns of a cyst growth. She also has nodule in her palm, pain when she makes a fist and radiates to her arm at times. States she has tingling in her hands in the morning but its not daily. Allergies morphine (MORPHINE) Allergy (Unknown, Verified 04/22/25 10:25) VOMITING Codeine Phosphate Allergy (Unknown, Uncoded 04/22/25 10:25) Unknown HPI HPI New Prob LT wrist cyst: Details: Brandie is a 59 year old right hand dominant woman who returns with a new complaint of left hand pain. Hx of left scaphoid fracture, S/P fall, DOI: 09/11/24. Her chief complaint today is of a nodule in her left palm. She says she was told to rub this nodule vigorously with a blunt object, which caused her to develop a blister She also complains of a mass in her elft wrist, which has been present for a few weeks. She also feels a clicking sensation in her wrist with finger ROM, as well as an aching pain from her palm into her forearm. She also complains of tingling in her left hand, primarily the middle & ring fingers. This occurs primarily in the mornings. She says this is intermittent throughout the week. She denies any pain in her wrist. 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 She is moving to [place] next month. 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 Review of Systems Const All systems reviewed & are unremarkable except as noted in HPI and below Physical Exam Const General: no acute distress and alert Orientation/consciousness: patient oriented x3 Neuro General: patient oriented x3 Extrem Other: Evaluation of Left Upper Extremity: The patient is alert, oriented, and in no acute distress Neuro: Median, Ulnar, Radial nerves motor and sensory intact and sensation is normal to the tips of all digits Vascular: Cap refill brisk ROM: She can make a fist and extend all her digits Full & symmetrical wrist pronosupination There are two Dupuytren's nodules in her palm, at the mid-palmar crease One in line with the ring finger, and one in line with the small finger, both ~4mm in diameter. No cords or contractures There is a healing wound over the small finger nodule, from a blister she developed from rubbing this nodule. When making a tight fist as I palpate the distal wrist crease, I can feel a small mass present. This is likely a mass on the finger flexor tendons as they pass through the carpal tunnel This causes a clicking & catching sensation in her wrist, reproducible. Left wrist CT: No scaphoid fracture seen Giovanny Eden 02/12/25 Psych Appearance: grossly normal Affect: normal affect Attitude: cooperative Office Procedures AMB Fracture Care Details: No fracture, a carpal tunnel injection Fracture Billing Code: Fracture Billing Code Assessment & Plan Assessment & Plan (1) Dupuytren's disease of palm of left hand: Code(s): M72.0 - Palmar fascial fibromatosis [Dupuytren] Category: Medical (2) Numbness and tingling in left hand: Code(s): R20.0 - Anesthesia of skin; R20.2 - Paresthesia of skin Category: Medical Plan Assessment & Plan: 1. Left hand & wrist tendinitis Likely a Small mass on the finger flexor tendons, as they pass through the carpal tunnel, palpable at the distal wrist crease Etiology unclear, possible tenosynovitis Onset only about 3 or 4 weeks ago I educated her about this condition I discussed operative and non-operative treatment options The patient would like to proceed with an injection today Injection #1: The risks and benefits of a steroid injection including but not limited to risk of damage to blood vessels, nerves, tendons, infection, skin bleaching, failure to improve symptoms, increased pain, and possible need for further injections or other intervention were discussed with the patient and the patient wishes to proceed with the steroid injection. Once consent was obtained, I sterilely prepped the area over the Left carpal tunnel. I then passed the needle just ulnar to the palmaris longus tendon at the distal palmar crease and injected the carpal tunnel with a combination of 1 mL of dexamethasone (4mg/ml), and 1% lidocaine. The patient developed dense numbness in the median nerve distribution, and tolerated the procedure well with no complications. 2. Left Hand Dupuytrens disease Nodules in line with the ring finger & small finger ~4mm in diameter I educated her about this condition I discussed treatment options No intervention indicated at this time If she develops a new contracture she can follow up to discuss treatment options Otherwise she can follow up prn 3. Left hand numbness Primarily the middle & ring fingers Symptoms intermittent & occasional throughout the week, primarily in the mornings. I educated her about carpal & cubital tunnel syndrome If her symptoms increase in frequency or severity she can follow up to discuss a NCS Otherwise no intervention warranted at this time 4. Left scaphoid waist fracture, nondisplaced DOI: 09/11/24 S/P fall Resolved Doing well, no complaints 5. Right hand pain & weakness Onset June 2024 Please note that greater than 30 minutes was spent with this patient going over the history, evaluating the patient and radiographs, formulating possible treatment options, discussing them with the patient, and documenting the visit. Scribed for Radha Caballero MD by Morales Mota, medical doctor, on 04/22/25 at 10:35 AM, EST. Coding Level of Care Code Est Pt Level 4 (85770) Diagnoses Dupuytren's disease of palm of left hand M72.0 Numbness and tingling in left hand R20.0; R20.2 CPT Codes Fracture Care - Fracture Billing Code: Fracture Billing Code ([id number])
--- OUTSIDE RECORDS SUMMARY | 2025-04-22 13:16 | XMS_ITS | Encounter Summary ---
Author Organization [facility] Address [address] [place] [address] [place] [phone] Phone Care Team Providers Care Construction Framer Name Role Phone Justin Nelson DO Primary Care Provider [phone] Encounter Details Date Type Department Care Team (Late st Contact Info) Description 05/28/2020 Ancillary Orders [facility], X-Ray - [address] [address] Og Wakefield MD [address] [place] [address] Pain Social History Tobacco Use Types Packs/Day Years Used Date Smoking Tobacco: Never Smokeless Tobacco: Never Alcohol Use Standard Drinks/Week Comments Yes 0 (1 standard drink = 0.6 oz pur e alcohol) rare Comments Unknown Sex and Gender Information Value Date Recorded Sex Assigned at Not on file Legal Sex Female 9:42 PM EDT Gender Identity Not on file Sexual Orientation Not on file documented as of this encounter Plan of Treatment Not on file documented as of this encounter Visit Diagnoses Diagnosis Pain Generalized pain documented in this encounter Care Teams Construction Framer Relationship Specialty Start Date End Date Justin Nelson DO PCP - General Internal Medicine 05/25/18 documented as of this encounter Additional Source Comments The information contained in this document represents components of the legal health record. It is not the complete legal health record.[facility]
--- OUTSIDE RECORDS SUMMARY | 2025-04-22 13:16 | XMS_ITS | Encounter Summary ---
Author Organization [facility] Address [address] [place] [address] [place] [phone] Phone Care Team Providers Care Customer Experience Manager Name Role Phone Justin Nelson DO Primary Care Provider [phone] Encounter Details Date Type Department Care Team (Late st Contact Info) Description 05/28/2020 Ancillary Orders [facility], X-Ray - [address] [address] Og Wakefield MD [address] [place] [address] Social History Tobacco Use Types Packs/Day Years [...] documented as of this encounter Visit Diagnoses Not on filedocumented in this encounter Care Teams Customer Experience Manager Relationship Specialty Start Date End Date Justin Nelson DO PCP - General Internal Medicine 05/25/18 documented as of this encounter Additional Source Comments The information contained in this document represents components of the legal health record. It is not the complete legal health record.[facility]
--- OUTSIDE RECORDS SUMMARY | 2025-04-22 13:16 | XMS_ITS | Encounter Summary ---
Author Organization [facility] Address [address] [facility] [address] [place] [phone] Phone Care Team Providers Care Gun Club Manager Name Role Phone Justin Nelson DO Primary Care Provider [phone] Encounter Details Date Type Department Care Team (Late st Contact Info) Description 04/21/2021 Ancillary Orders [facility],Outside Imaging [address] [place] [address] System, Provider Not In, [facility] [address] [address] Social History Tobacco Use Types Packs/Day Years Used Date Smoking Tobacco: Former Smokeless Tobacco: Never Alcohol Use Standard Drinks/Week [...] on file documented as of this encounter Results * MRI Lower Extremity Outside (No Interpretation) (04/14/2021 12:00 AM EDT) Narrative SYSTEMGENERATED, DOCUMENTATION - 04/21/2021 5:06 PM EDT This study is for PACS storage only and not for interpretation. us Provider Not In System PhD IMG OUTSIDE IMAGING W /OUT INTERPRETATION Final Result documented in this encounter Visit Diagnoses Not on filedocumented in this encounter Care Teams Gun Club Manager Relationship Specialty Start Date End Date Justin Nelson DO PCP - General Internal Medicine 05/25/18 documented as of this encounter Additional Source Comments The information contained in this document represents components of the legal health record. It is not the complete legal health record.[facility]
--- OUTSIDE RECORDS SUMMARY | 2025-04-22 13:16 | XMS_ITS | Clinical Summary ---
Author Organization [facility] Address [address] [place] [address] [place] [phone] Phone Care Team Providers Care Room Worker Name Role Phone Justin Nelson Primary Care Provider [phone] Allergies Active Allergy Reactions Criticality Noted Date Comments [id number]-[id number]-Yyhrdvj- Pramoxine Low 05/25/2018 General sensitivity Codeine Diarrhea,Nausea and/or Vomiting 01/13/2021 Overheated Morphine 05/25/2018 Medications albuterol 90 mcg/actuation inhaler albuterol sulfate HFA 90 mcg/actuation aerosol inhaler Active betamethasone dipropionate 0.05 % lotion betamethasone dipropionate 0.05 % lotion Active coenzyme Q10 (CO Q-10) 10 mg capsule Co Q-10 Active Lactobacillus acidophilus (PROBIOTIC) 10 billion cell Cap Probiotic Act gautam meloxicam (MOBIC) 7.5 MG tablet Take 7.5 mg by mouth 2 (two) times a day. Active Active Problems Problem Noted Date Diagnosed Date Chronic fatigue 01/13/2021 Assessment & Plan (01/13/2021 10:36 PM EDT): May be sequelae from COVID-19 infection versus other etiology. Sleep hygiene. Well-balanced nutritionally diet. Proper hydration. Daily, gentle, regular exercise routine as tolerated. Keep engaged in regular hobbies/favorite activities. Avoid falls, injuries, sick contacts. I was able to reassure her that there are no signs either by history, physical exam or available lab results to suggest systemic lupus erythematosus versus rheumatoid arthritis versus psoriatic arthritis or Lyme disease at this time. NSAID long-term use 01/13/2021 Assessment & Plan (01/13/2021 10:37 PM EDT): Take the lowest dose, with least frequency, for shortest time. Remember to take it always with food. Favor topical over oral preparations. Personal history of COVID-19 01/13/2021 Assessment & Plan (01/13/2021 10:39 PM EDT): Continue tracking and cooperating with the COVID-19 [facility] [place] C-19 by Myra study. Class 2 obesity due to exces s calories without serious comorbidity with body mass index (BMI) of 35.0 to 35.9 in adult 01/13/2021 Assessment & Plan (01/13/2021 10:31 PM EDT): Portion control. Limit concentrated sugars, saturated fats and calories in the diet. Keep well-hydrated. If unable to achieve expected goal consider formal dietary/nutritional support. Paresthesia 01/13/2021 Assessment & Plan (01/13/2021 10:37 PM EDT): Appears stable-? Possible meralgia paresthetica that is benign and does not require specific treatment as long as it is not associated with functional deficits or increasing/intolerable sensation/pain. Prepatellar bursitis of right knee 01/13/2021 Assessment & Plan (01/13/2021 10:34 PM EDT): Keep the knee on a pillow and apply an ice pack over the towel for 15-20 minutes every couple of hours. Alternatively she may use gentle topical Arnica, Voltaren, Biofreeze or medicated patches such as Salonpas or IcyHot patch. She would benefit from a home formal PT particularly using therapeutic ultrasound versus/and iontophoresis. Call if not better or worse. CRP elevated 01/13/2021 Assessment & Plan (01/13/2021 10:37 PM EDT): Most likely secondary to called that was present at the time of blood testing- new set requested today to assure resolution. ESR raised 01/13/2021 Assessment & Plan (01/13/2021 10:31 PM EDT): New set requested today since I do not have prior reading for comparison. She believes that it may have been elevated due to cold at the time of lab draw. Encounters Date Type Department Care Team Description 03/12/2025 2:15 PM EDT Office Visit [address] [address] Mark Gilbert MD Menard, Angela, OT Closed nondisplaced fracture of middle third of navicular bone of left wrist with routine healing (Primary Dx) 02/28/2025 12:45 PM EDT Office Visit [address] [address] Mark Gilbert MD Menard, Angela, OT Closed nondisplaced fracture of middle third of navicular bone of left wrist with routine healing (Primary Dx) 02/25/2025 1:30 PM EDT Office Visit [address] [address] Mark Gilbert MD Menard, Angela, OT Closed nondisplaced fracture of middle third of navicular bone of left wrist with routine healing (Primary Dx) 02/21/2025 Transcribe Orders [facility] [address] [place] [address] Do Bob Encounter for rehabilitation (Primary Dx) from Last 3 Months Social History Tobacco Use Types Packs/Day Years Used Date Smoking Tobacco: Former Smokeless Tobacco: Never Alcohol Use Standard Drinks/Week Comments Yes 0 (1 standard drink = 0.6 oz pur e alcohol) rare Education Answer Date Recorded Are you interested in more education? Not on wallace e 12/02/2022 Are you concerned about learning? Not on file 12/02/2022 No 12/02/2022 No 12/02/2022 Digital Access Answer Date Recorded No 12/31/2022 No 12/31/2022 Reliable internet access at home? Not on file 12/31/2022 Device with a working camera? Not on file Comments Unknown Sex and Gender Information Value Date Recorded Sex Assigned at Not on file Legal Sex Female 9:42 PM EDT Gender Identity Not on file Sexual Orientation Not on file Last Filed Vital Signs Vital Sign Reading Time Taken Comments Blood Pressure 130/82 01/13/2021 10:59 AM EDT Pulse 75 04/09/2015 10:12 AM EDT Temperature - - Respiratory Rate - - Oxygen Saturation - - Inhaled Oxygen Concentration - - Weight 99.8 kg (220 lb) 04/01/2021 10:09 AM EDT Height 167.6 cm (5' 6 ) 04/01/2021 10:09 AM EDT Body Mass Index 35.51 04/01/2021 10:09 AM EDT Plan of Treatment Health Maintenance Due Date Last Done Comments Adult Td,Tdap Booster 1964 LIPID PANEL 1964 DEPRESSION SCREENING 1976 SMOKING Hx and SMOKELESS TOBACCO SCREENING 1977 HEPATITIS C SCREENING 1982 HIV ONE-TIME SCREENING (18-6 5 YEARS) 1982 PAP SMEAR 1985 MAMMOGRAM 2004 COLOGUARD 2009 COLONOSCOPY 2009 COLORECTAL CANCER SCREENING 2009 FIT TEST 2009 FOBT 2009 SIGMOIDOSCOPY 2009 VIRTUAL COLONOSCOPY 2009 PNEUMOCOCCAL VACCINES (50+ years) (1 of 1 - PCV) 2014 ZOSTER VACCINES (1 of 2) 2014 INFLUENZA VACCINE (#1) 2025 COVID-19 VACCINE (3 - 2024-2 6 season) 2025 12/02/2020, 11/11/2020 RSV VACCINE (1 - 1-dose 75+ series) 12/16/2039 HEPATITIS A VACCINES Aged Out No long er eligible based on patient's age to complete this topic HIB VACCINES Aged Out No longer eligi ble based on patient's age to complete this topic MENINGOCOCCAL VACCINES (ACWY) Aged Out No longer eligible based on patient's age to complete this topic MENINGOCOCCAL VACCINES (B) Aged Out N o longer eligible based on patient's age to complete this topic Medical Devices Not on file Insurance HMO O O HMO O O O [facility]MO [facility] Address: [place] [address] Care Teams Room Worker Relationship Specialty Start Date End Date Justin Nelson DO PCP - General Internal Medicine 05/25/18 Additional Source Comments The information contained in this document represents components of the legal health record. It is not the complete legal health record.[facility]
--- OUTSIDE RECORDS SUMMARY | 2025-04-22 13:16 | XMS_ITS | Encounter Summary ---
Author Organization [facility] Address [address] [place] [address] [place] [phone] Phone Care Team Providers Care Children Counselor Name Role Phone ChrisJustin buitrago Henok PATHAK Primary Care Provider [phone] Encounter Details Date Type Department Care Team (Late st Contact Info) Description 05/28/2020 Ancillary Orders [facility], X-Ray - [address] [id number] Og Wakefield DO [address] [place] [id number] Other instability, right ankle Social History Tobacco Use Types Packs/Day Years [...] documented as of this encounter Results * XR ANKLE 3 OR MORE VIEWS (BILATERAL) (05/28/2020 3:17 PM EDT) Anatomical Region Laterality Modality Ankle Left Computed Radiogr aphy 05/28/2020 3:20 PM EDT Impressions 05/28/2020 3:24 PM EDT 1.Bilateral calcaneal enthesopathy. 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 3.Chronic posterior left ankle joint loose bodies and bilateral malleoli spurring. POS - [id number] Narrative 05/28/2020 3:24 PM EDT HISTORY: As above. COMPARISON: Left ankle x-rays 05/25/2018. BILATERAL ANKLE RADIOGRAPH FINDINGS: 3 images of both ankles. Right: No acute fracture or malalignment. Small well-corticated bone density inferior to the lateral malleolus which may represent a chronic avulsion fracture. Joint spaces are preserved. Moderate-sized plantar calcaneal spur. No erosions. No destructive or suspicious bone lesions. Patient could not remove the toe ring or anklet. No soft tissue swelling. Left: No acute fracture or malalignment. Joint spaces preserved. Stable bimalleolar spurring, large plantar calcaneal spur and small posterior ankle joint loose bodies. No erosions. No destructive or suspicious bone lesions. No soft tissue swelling. Procedure Note Aldair Aquino MD - 05/28/2020 HISTORY: As above. COMPARISON: Left ankle x-rays 05/25/2018. BILATERAL ANKLE RADIOGRAPH FINDINGS: 3 images of both ankles. Right: No acute fracture or malalignment. Small well-corticated bonedensity inferior to the lateral malleolus which may represent a chronicavulsion fracture. Joint spaces are preserved. Moderate-sized plantarcalcaneal spur. No erosions. No destructive or suspicious bone lesions.Patient could not remove the toe ring or anklet. No soft tissueswelling. Left: No acute fracture or malalignment. Joint spaces preserved. Stablebimalleolar spurring, large plantar calcaneal spur and small posteriorankle joint loose bodies. No erosions. No destructive or suspicious bonelesions. No soft tissue swelling. IMPRESSION: 1.Bilateral calcaneal enthesopathy. 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 3.Chronic posterior left ankle joint loose bodies and bilateral malleolispurring. 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 Narrative 05/28/2020 3:47 PM EDT HISTORY: As above. COMPARISON: None. BILATERAL FOOT RADIOGRAPH FINDINGS: 7 images obtained. Left foot: No fracture or malalignment. Mild first MTP joint space narrowing. Large plantar calcaneal spur. No erosions. No destructive or suspicious bone lesions. Soft tissues are normal. Right foot: Patient could not remove the second toe ring. No fracture or malalignment. Mild first MTP joint space narrowing. Moderate-sized plantar calcaneal spur. No erosions. No destructive or suspicious bone lesions. No soft tissue swelling. Procedure Note Aldair Aquino MD - 05/28/2020 HISTORY: As above. COMPARISON: None. BILATERAL FOOT RADIOGRAPH FINDINGS: 7 images obtained. Left foot: No fracture or malalignment. Mild first MTP joint spacenarrowing. Large plantar calcaneal spur. No erosions. No destructive orsuspicious bone lesions. Soft tissues are normal. Right foot: Patient could not remove the second toe ring. No fracture ormalalignment. Mild first MTP joint space narrowing. Moderate-sized plantarcalcaneal spur. No erosions. No destructive or suspicious bone lesions. Nosoft tissue swelling. 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 Og Wakefield DO IMG XR LOWER EXTREMITY Fi nal Result documented in this encounter Visit Diagnoses Diagnosis Other instability, right ankle Other instability, right ankle Other instability, right ankle documented in this encounter Care Teams Children Counselor Relationship Specialty Start Date End Date Justin Nelson DO PCP - General Internal Medicine 05/25/18 documented as of this encounter Additional Source Comments The information contained in this document represents components of the legal health record. It is not the complete legal health record.[facility]
--- OUTSIDE RECORDS SUMMARY | 2025-04-22 13:16 | XMS_ITS | Encounter Summary ---
Author Organization [facility] Address [address] [place] [address] [place] [phone] Phone Care Team Providers Care Director Of Communications Name Role Phone Justin Neslon DO Primary Care Provider [phone] Encounter Details Date Type Department Care Team (Late st Contact Info) Description 05/28/2020 Ancillary Orders [facility], X-Ray - [address] [address] Og Wakefield MD [address] [place] [address] Social History Tobacco Use Types Packs/Day Years [...] on filedocumented in this encounter Care Teams Director Of Communications Relationship Specialty Start Date End Date Justin Nelson DO PCP - General Internal Medicine 05/25/18 documented as of this encounter Additional Source Comments The information contained in this document represents components of the legal health record. It is not the complete legal health record.[facility]
--- OUTSIDE RECORDS SUMMARY | 2025-04-22 13:16 | XMS_ITS | Encounter Summary ---
Author Organization [facility] Address [address] [place] [address] Phone Care Team Providers Care Research Management Associate Name Role Phone Justin Nelson DO Primary Care Provider [phone] Reason for Referral * Consultation (Elective) - Closed Specialty Diagnoses / Procedures Referred By Kiarra t Referred To Contact Pulmonary Disease Justin Nelson DO Phone: tel: fax: mailto: [facility] [address] [place] [address] Phone: tel: Referral ID Status Reason Start Date Expiration Date Visits Re quested Visits Authorized [id number] Closed 01/01/2021 01/01/2022 1 1 Encounter Details Date Type Department Care Team (Late st Contact Info) Description 01/01/2021 Transcribe Orders CD Pulmonary, Allergy and Critical Care Medicine [address] [facility] [place] [address] [place] [address] Justin Nelson DO [address] [facility] [place] [address] [place] [address] Social History Tobacco Use Types Packs/Day Years [...] as of this encounter Plan of Treatment Scheduled Referrals Name Type Priority Associated Diagnoses Order Schedule Ambulatory referral to [facility] Pulmonology Outpatient Referral Routine Ordered: 01/01/2021 documented as of this encounter Visit Diagnoses Not on filedocumented in this encounter Care Teams Research Management Associate Relationship Specialty Start Date End Date Justin Nelson DO [email or web address] PCP - General Internal Medicine 05/25/18 documented as of this encounter Additional Source Comments The information contained in this document represents components of the legal health record. It is not the complete legal health record.[facility]
--- OUTSIDE RECORDS SUMMARY | 2025-04-22 13:16 | XMS_ITS | Encounter Summary ---
Author Organization [facility] Address [address] [place] [address] [place] [phone] Phone Care Team Providers Care Director Of Retention Name Role Phone Justin Nelson DO Primary Care Provider [phone] Encounter Details Date Type Department Care Team (Late st Contact Info) Description 05/28/2020 Ancillary Orders [facility], X-Ray - [address] [address] Og Wakefield MD [address] [place] [address] Social History Tobacco Use Types Packs/Day Years [...] in this encounter Care Teams Director Of Retention Relationship Specialty Start Date End Date Justin Nelson DO PCP - General Internal Medicine 05/25/18 documented as of this encounter Additional Source Comments The information contained in this document represents components of the legal health record. It is not the complete legal health record.[facility]
--- OUTSIDE RECORDS SUMMARY | 2025-04-22 13:16 | XMS_ITS | Patient Health Record ---
Author Organization [facility] Address [address] [place] [phone] Care Team Providers Care Form Building Supervisor Name Role Phone Justin Nelson Primary Care Provider Miguelito Sebastian [phone] Allergies Allergen (clinical drug ingredient) Drug/Non Drug [...] Problem Status W/U Status Risk Notes Problem [id number] Elevated liver enzymes (R74.8) Active confirmed Plan Of Treatment No Information Insurance Providers Payer Name Payer Address Payer Phone Subscriber Number Group Number Insured Name Patient Relationship to Insured Coverage Start Date Coverage End Date [facility] [address] [facility] [place] [place] [phone] [id number] TALAMANTES Self - patient is the insured Medical (General) History Medical History History ICD Code Denies RI,DM,CVA,Lung disease,renal dise ase Surgical History Surgery Date(Month/Year) Cholecystectomy 1998
== END 2025-04-22 11:29 | disposition home or self-care (01) ==
LOC: HO.HOS 10:12
PROVIDERS: PCP Internal Medicine; Visit Provider Orthopaedic Surgery
DX: M72.0 Palmar fascial fibromatosis [Dupuytren] (principal); R20.0 Anesthesia of skin; R20.2 Paresthesia of skin
CPT/HCPCS: 20526; 99213

== ENCOUNTER → 2025-04-22 10:12 | Outpatient (BNVA) | payer OTHER, SELFPAY | PROVIDERS: PCP Internal Medicine; Visit Provider Orthopaedic Surgery | DX: M72.0 Palmar fascial fibromatosis [Dupuytren] (principal) | CPT/HCPCS: 20526; J1100; J2003 ==